=== PATIENT | female | born 1965 | race Caucasian/White ===

== ENCOUNTER 2017-09-30 19:41 | Inpatient (IN) | payer MEDICAID, OTHER ==
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
[2017-10-01] MEDS ORDERED: MIRTAZAPINE 15 MG TAB ONE (00:15)
[2017-10-01] MEDS ORDERED: ACETAMINOPHEN TAB 325 MG TAB PO PRN (04:54)
[2017-10-01] MEDS ORDERED: MAGNESIUM HYDROXIDE 2,400 MG/10 ML CUP PO PRN (04:54)
[2017-10-01] MEDS ORDERED: MAG HYDROX/AL HYDROX/SIMETH 30 ML CUP PO PRN (04:55)
[2017-10-01] MEDS: PANTOPRAZOLE 40 MG TABLET PO SCH ×2 (08:49→16:55)
[2017-10-01] MEDS: lamoTRIgine 100 MG TAB PO SCH (08:49)
[2017-10-01] MEDS: PRENATAL VIT-IRON-FOLIC ACID 1 EACH CAP PO SCH (08:49)
[2017-10-01] MEDS: LORazepam 1 MG TAB PO PRN ×2 (08:53→20:18)
[2017-10-01 08:56] LABS: Basophils # (A) 0.1 k/uL (0-0.2); Basophils % (A) 1 %; CH 29.7; CHCM 30.8; Eosinophils # (A) 0.2 k/uL (0-0.7); Eosinophils % (A) 3 %; HCT 42.7 % (34.0-46.0); HDW 2.27; HGB 13.2 gm/dL (11.4-16.0); Hypochromasia Slight; Luc % (Auto) 3; Lymphocytes # (A) 2.7 k/uL (1.0-4.8); Lymphocytes % (A) 37 %; Mean Platelet Volume 7.7; Monocytes # (A) 0.5 k/uL (0-1.0); Monocytes % (A) 6 %; Neutrophils # (A) 3.7 k/uL (1.3-7.7); Neutrophils % (A) 51 %; RBC 4.41 m/uL (3.80-5.40); RDW 14.2 % (11.5-15.5); WBC 7.4 k/uL (3.8-10.6); WBC (Perox) 7.14
[2017-10-01 09:29] LABS: ALT 32 U/L (9-52); AST 32 U/L (14-36); Alkaline Phosphatase 100 U/L (38-126); Anion Gap 9 mmol/L; Blood Urea Nitrogen 17 mg/dL (7-17); Calcium 9.6 mg/dL (8.4-10.2); Carbon Dioxide 26 mmol/L (22-30); Chloride 109 mmol/L (98-107); Cholesterol 157 mg/dL (<200); Glucose 93 mg/dL (74-99); HDL Cholesterol 74 mg/dL (40-60); Non-African American GFR(MDRD) >60 (>60 ml/min/1.73 sqM); Potassium 4.6 mmol/L (3.5-5.1); Sodium 144 mmol/L (137-145); Total Bilirubin 0.3 mg/dL (0.2-1.3); Total Protein 6.8 g/dL (6.3-8.2)
[2017-10-01] MEDS: ASPIRIN-ACET-CAFF 250-250-65MG 1 EACH TAB PO PRN ×2 (12:56→17:34)
[2017-10-01] MEDS: PREGABALIN 50 MG CAP PO SCH ×3 (12:56→21:58)
--- NOTE | 2017-10-01 17:30 | P.MDCNMH ---
History of Present Illness H&P Date: 10/01/17 Chief Complaint: medical management 52 year old female with history of depression . presented due to suicidal ideation and depression . she denies any active medical problems, but reports history of stomach ulcers and multiple surgeries on the bowels and stomach. denies any abd pain, nausea, vomiting, diarrhea , constipation at this time. she complains of chronic lower back pain non-radiating, 5/10 in severity , dull in nature. not limiting her activity, but asking for norco or morphine as these medications are the only ones that worked for her in the past. Review of Systems Pertinent positives as noted in HPI. All other systems were reviewed and are negative Past Medical History Past Medical History: No Reported History Additional Past Medical History / Comment(s): bowel obstruction History of Any Multi-Drug Resistant Organisms: None Reported Past Surgical History: Bowel Resection Additional Past Surgical History / Comment(s): ani en y gastric bypass bowel obstruction, GASTRIC SURGERY FOR ULCERS Past Anesthesia/Blood Transfusion Reactions: No Reported Reaction Past Psychological History: Anxiety, Depression Smoking Status: Current every day smoker Past Alcohol Use History: None Reported Past Drug Use History: None Reported - Past Family History family Additional Family Medical History / Comment(s): denies any history of cancer or CAD in the family Medications and Allergies Home Medications Medication Instructions Recorded Confirmed Type lamoTRIgine [LaMICtal] 200 mg PO DAILY 09/09/15 09/30/17 History Pantoprazole Sodium [Protonix] 20 mg PO BID #60 tab 04/30/16 09/30/17 Rx Mirtazapine [Remeron] 15 mg PO HS 08/04/16 09/30/17 History Bmrmgqe-Lelg-Ukzl [id number] 1 tab PO Q4HR PRN 09/30/17 09/30/17 History [Excedrin] Axy-Dqkl-Godfy Acid 1 cap PO DAILY 09/30/17 09/30/17 History [-U Capsule (formulary)] Allergies Allergy/AdvReac Type Severity Reaction Status Date / Time prochlorperazine Allergy Unknown Verified 09/30/17 19:54 [From Compazine] prochlorperazine edisylate Allergy Unknown Verified 09/30/17 19:54 [From Compazine] prochlorperazine maleate Allergy Unknown Verified 09/30/17 19:54 [From Compazine] Physical Exam Vitals: Vital Signs Temp Pulse Pulse Resp BP BP Pulse Ox 10/01/17 07:09 98.0 F 67 16 161/71 10/01/17 03:37 98.4 F 68 18 121/59 96 09/30/17 23:28 97.2 F L 90 16 135/90 96 09/30/17 19:47 98.6 F 96 20 178/84 97 Intake and Output 10/01/17 10/01/17 10/01/17 06:59 14:59 22:59 Other: Weight 54.2 kg Constitutional: No acute distress, conversant, pleasant Eyes: Anicteric sclerae, moist conjunctiva, no lid-lag Pupils equal round reactive to light ENMT: NC/AT Oropharynx clear, no erythema, exudates Neck: Supple, FROM, no masses, or JVD No carotid bruits No thyromegaly Lungs: Clear to auscultation Clear to percussion Normal respiratory effort, no accessory muscle use Cardiovascular: Heart regular in rate and rhythm, No murmurs, gallops, or rubs No peripheral edema Abdominal: Soft Nontender, no guarding, rebound or rigidity Abdomen moving with respiration Normoactive bowel sounds No hepatomegaly, No splenomegaly No palpable mass No abdominal wall hernia noted midline scar of previous surgeries Skin: Normal temperature, tone, texture, turgor No induration No subcutaneous nodules No rash, lesions No ulcers Extremities: No digital cyanosis No clubbing Pedal pulses intact and symmetrical Radial pulses intact and symmetrical No calf tenderness Psychiatric: Alert and oriented to person, place and time depressed affect poor judgment Neuro Muscles Strength 5/5 in all 4 extremities Sensation to light touch grossly present throughout No focal sensory deficits Lymphatics: no palpable cervical or supraclavicular , or inguinal lymph nodes Cranial Nerve Examination - Cranial Nerves Cranial Nerve II- Optic: Intact Cranial Nerve III- Oculomotor: Intact Cranial Nerve IV- Trochlear: Intact Cranial Nerve V- Trigeminal: Intact Cranial Nerve - Abducens: Intact Cranial Nerve VII- Facial: Intact Cranial Nerve VIII- Auditory: Intact Cranial Nerve IX- Glossopharyngeal: Intact Cranial Nerve X- Vagus: Intact Cranial Nerve XI- Accessory: Intact Cranial Nerve XII- Hypoglossal: Intact Results CBC & Chem 7: 10/01/17 08:18 10/01/17 08:18 Labs: Abnormal Lab Results - Last 24 Hours (Table) 09/30/17 10/01/17 Range/Units 21:25 08:18 Chloride 109 H (98-107) mmol/L HDL Cholesterol 74 H (40-60) mg/dL U Benzodiazepines Scrn Detected H (NotDetected) U Marijuana (THC) Screen Detected H (NotDetected) Assessment and Plan (1) Chronic low back pain Narrative/Plan: avoid NSAIDS due to history of stomach ulcers Current Visit: Yes Status: Acute Code(s): M54.5 - LOW BACK PAIN; G89.29 - OTHER CHRONIC PAIN SNOMED Code(s): 043674643 (2) DVT prophylaxis Narrative/Plan: low risk ambulatory patient Current Visit: Yes Status: Acute Code(s): QNI8196 - SNOMED Code(s): 316416015 (3) Depression Narrative/Plan: per psych Current Visit: Yes Status: Acute Code(s): F32.9 - MAJOR DEPRESSIVE DISORDER , SINGLE EPISODE, UNSPECIFIED SNOMED Code(s): 40465941 (4) Suicidal ideation Narrative/Plan: currently denies management per psych Current Visit: Yes Status: Acute Code(s): R45.851 - SUICIDAL IDEATIONS SNOMED Code(s): 1729056 Plan: continue with PPI tylenol or norco for pain control Thank you for allowing us to participate in the care of this patient. We will follow peripherally. Do not hesitate to contact us with questions. Someone can be reached from the [facility] hospitalist group at all hours of the day at [phone].
[2017-10-01] MEDS: MIRTAZAPINE 15 MG TAB PO SCH (20:18)
[2017-10-01 22:02] LABS: Appearance,Urine Clear (Clear); Bilirubin,Urine Negative (Negative); Glucose,Urine (UA) Negative (Negative); Ketones,Urine Negative (Negative); Leukocyte Esterase,Urine Negative (Negative); Nitrite,Urine Negative (Negative); PH, Urine 6.5 (5.0-8.0); Protein,Urine Trace (Negative); Specific Gravity,Urine 1.028 (1.001-1.035); UA Billing (MACRO vs. MICRO) CHEM
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
[2017-10-02] MEDS: PRENATAL VIT-IRON-FOLIC ACID 1 EACH CAP PO SCH (08:22)
[2017-10-02] MEDS: LORazepam 1 MG TAB PO PRN ×2 (08:22→20:42)
[2017-10-02] MEDS: lamoTRIgine 100 MG TAB PO SCH (08:22)
[2017-10-02] MEDS: PANTOPRAZOLE 40 MG TABLET PO SCH ×2 (08:23→16:21)
[2017-10-02] MEDS: PREGABALIN 50 MG CAP PO SCH ×3 (08:23→20:42)
[2017-10-02] MEDS: ASPIRIN-ACET-CAFF 250-250-65MG 1 EACH TAB PO PRN (11:54)
[2017-10-02] MEDS ORDERED: guaiFENesin-DM 100-10MG/5ML 10 ML CUP PO PRN (17:20)
--- NOTE | 2017-10-02 17:42 | P.PN ---
Subjective Progress Note Date: 10/02/17 Principal diagnosis: patient was seen and examined upon RN request to evaluate patient for chest pain 52 year old female with no reported medical history. However she remembered today that she used to take clonidine 0.1 mg QID , however she has not taken any since coming to the hospital (as she did not mention it to any one) she reported some chest pain earlier today which sounded like pleuritic in nature, associated with deep breaths, however it has resolved now, described as sharp 5/10 in severity over the left anterior chest , she is also reporting feeling congested and occasional cough, as she has not smoked since she has been here. Now, patient was walking through the hallways, no complain of any chest pain , trouble breathing, dizziness or sweating. denies any nausea or vomiting. Objective - Vital Signs Vital signs: Vital Signs Temp 97.6 F 10/02/17 07:19 Pulse 64 10/02/17 07:19 Resp 16 10/02/17 07:19 BP 118/66 10/02/17 07:19 Pulse Ox 96 10/01/17 03:37 - Exam general not in acute distress, conversant, pleasant Lungs clear to auscultation bilaterally, no wheezes CVS nl S1 S2, RRR no MGR abd soft lax , no tenderness to palpation , BS + Ext no leg edema b/l, no tenderness to palpation of the lower ext vital signs, shows elevated BP Psych alert oriented to place , person and time - Labs CBC & Chem 7: 10/01/17 08:18 10/01/17 08:18 Labs: Abnormal Lab Results - Last 24 Hours (Table) 10/01/17 10/01/17 Range/Units 08:18 21:45 Hemoglobin A1c 6.2 H (4.0-6.0) % Urine Protein Trace H (Negative) Assessment and Plan Assessment: 52 year old female, here for depression and suicidal ideation. she has recalled that she takes clonidine at home and I was asked to evaluate her elevated blood pressure (1) Hypertensive urgency Narrative/Plan: rebound hypertension , patient has not been taking her clonidine since presentation to the hospital restart clonidine 0.1 mg tid monitor vital signs closely Current Visit: Yes Status: Acute Code(s): I16.0 - HYPERTENSIVE URGENCY SNOMED Code(s): 268812629 (2) Atypical chest pain Narrative/Plan: patient describes chest pain , pleuritic in nature, resolved now check EKG, and trops X2 patient is a smoker and hypertensive Current Visit: Yes Status: Acute Code(s): R07.89 - OTHER CHEST PAIN SNOMED Code(s): 152981893 (3) Depression Narrative/Plan: per psych Current Visit: Yes Status: Acute Code(s): F32.9 - MAJOR DEPRESSIVE DISORDER , SINGLE EPISODE, UNSPECIFIED SNOMED Code(s): 27104436 (4) Suicidal ideation Narrative/Plan: currently denies management per psych Current Visit: Yes Status: Acute Code(s): R45.851 - SUICIDAL IDEATIONS SNOMED Code(s): 8655412
[2017-10-02] MEDS: cloNIDine HCL 0.1 MG TAB PO SCH ×2 (17:45→20:42)
[2017-10-02] MEDS: MIRTAZAPINE 15 MG TAB PO SCH (20:42)
--- NOTE | 2017-10-02 22:54 | P.PN ---
Subjective Progress Note Date: 10/02/17 Principal diagnosis: Major depressive disorder Interval History: Patient reports sleeping better last night. She is tolerating Lyrica without any adverse or side effects. Patient is attending most group, recreational, and activity therapies. She has integrated well into unit and socializes appropriately with staff and peers. She is attending all meals. She has not required any emergency medication. Patient has had contact with daughter Holly since admission and reports it was supportive. Mattie will pick patient up at hospital. At this time, patient denies SI/HI/AVH. Mental status exam: Appearance: alert, well groomed, appears stated age, steady gait Behavior: no psychomotor agitation or psychomotor retardation, no abnormal movements, fair eye contact Attitude: cooperative Speech: normal rate, rhythm, fluency, articulation, volume soft, and prosody; primary language: Niuean Mood: depressed Affect: congruent, reactive Thought processes: linear Thought content: patient does not appear to be responding to internal stimuli; patient denies auditory and visual hallucinations, no delusions appreciated Insight: overall fair Judgment: overall fair Cognitive: oriented to all 3 spheres, average intelligence Plan: Continue Remeron Continue Lamictal Continue Lyrica 50-mg PO TID SW will arrange a family meeting for tomorrow After family meeting, patient will most likely be ready to discharge home. Provisional discharge date is 10/03/2017 Objective - Vital Signs Vital signs: Vital Signs Temp 97.6 F 10/02/17 07:19 Pulse 64 10/02/17 20:46 Resp 16 10/02/17 17:48 BP 144/79 10/02/17 20:46 Pulse Ox 96 10/01/17 03:37 - Labs CBC & Chem 7: 10/01/17 08:18 10/01/17 08:18 Labs: Abnormal Lab Results - Last 24 Hours (Table) 10/01/17 Range/Units 08:18 Hemoglobin A1c 6.2 H (4.0-6.0) % Assessment and Plan (1) Major depressive disorder, recurrent, severe without psychotic features Current Visit: Yes Status: Acute Code(s): F33.2 - MAJOR DEPRESSV DISORDER, RECURRENT SEVERE W/O PSYCH FEATURES SNOMED Code(s): 66630548 (2) History of OCD (obsessive compulsive disorder) Current Visit: Yes Status: Acute Code(s): Z86.59 - PERSONAL HISTORY OF OTHER MENTAL AND BEHAVIORAL DISORDERS SNOMED Code(s): 810768071
[2017-10-03 06:55] VITALS: TEMP 97.7
[2017-10-03] MEDS ORDERED: metFORMIN 500 MG TAB PO SCH (07:30)
[2017-10-03] MEDS: PREGABALIN 50 MG CAP PO SCH (08:03)
[2017-10-03] MEDS: PRENATAL VIT-IRON-FOLIC ACID 1 EACH CAP PO SCH (08:03)
[2017-10-03] MEDS: lamoTRIgine 100 MG TAB PO SCH (08:03)
[2017-10-03] MEDS: cloNIDine HCL 0.1 MG TAB PO SCH (08:04)
[2017-10-03] MEDS: PANTOPRAZOLE 40 MG TABLET PO SCH (08:04)
[2017-10-03] MEDS: LORazepam 1 MG TAB PO PRN (08:05)
[2017-10-03] MEDS ORDERED: LISINOPRIL 5 MG TAB PO SCH (10:00)
[2017-10-03] MEDS ORDERED: LISINOPRIL 10 MG TAB PO SCH (10:00)
[2017-10-03 10:01] VITALS: BP 133/67; PULSE 95; RESP 18
== END 2017-10-03 11:27 | disposition home or self-care (01) | DRG 751 ==
LOC: EC 19:41 → 3MHU 23:28
PROVIDERS: ADMIT Psychiatry & Neurology Psychiatry; ATTEND Psychiatry & Neurology Psychiatry
DX: F33.2 Major depressive disorder, recurrent severe without psychotic features (principal); R45.851 Suicidal ideations; I10 Essential (primary) hypertension; F17.200 Nicotine dependence, unspecified, uncomplicated; F42.9 Obsessive-compulsive disorder, unspecified; I16.0 Hypertensive urgency; R07.89 Other chest pain; F41.9 Anxiety disorder, unspecified; Z98.84 Bariatric surgery status; Z79.899 Other long term (current) drug therapy; Z79.82 Long term (current) use of aspirin; Z91.5 Personal history of self-harm
CPT/HCPCS: 80053; 80061; 80306; 81003; 82075; 83036; 84443; 84484; 85025; 99285

== ENCOUNTER 2017-10-03 20:35 | Inpatient (IN) | payer OTHER ==
[2017-10-03] MEDS ORDERED: SODIUM CHLORIDE 0.9% 1,000 ML IV STA ×2 (20:40→23:01)
[2017-10-03] MEDS ORDERED: SODIUM CHLORIDE 0.9% 500 ML IV STA (20:40)
[2017-10-03] MEDS: ONDANSETRON 4 MG/2 ML VIAL IVP STA ×2 (21:00→22:22)
[2017-10-03] MEDS ORDERED: NALOXONE 0.4 MG/ML 10 ML VIAL IVP STA ×2 (21:14→21:46)
[2017-10-03] MEDS ORDERED: NALOXONE 0.4 MG/ML 1 ML VIAL IV STA (21:14)
--- NOTE | 2017-10-03 21:14 | ED ---
General Adult HPI - General Chief complaint: Abdominal Pain Stated complaint: Hypotension Time Seen by Provider: 10/03/17 20:37 Source: patient, RN notes reviewed, old records reviewed Mode of arrival: EMS Limitations: no limitations - History of Present Illness Initial comments: This is a 32-year-old female to the ER for evaluation. This patient presents to ER for evaluation regarding abdominal pain. Patient is brought in by EMS for bowel pain. Patient was just discharged from the hospital for psychiatric stay. Patient is found to be just complaining of pain, abdominal pain or weakness. Nausea no vomiting. Patient's been taking blood pressure pressure medication, she took clonidine 3 - Related Data Home Medications Medication Instructions Recorded Confirmed Ntbkeec-Nxvt-Zjce [id number] 1 tab PO Q4HR PRN 09/30/17 10/03/17 [Excedrin] Jkw-Asxl-Karkk Acid 1 cap PO DAILY 09/30/17 10/03/17 [-U Capsule (formulary)] Previous Rx's Medication Instructions Recorded Lisinopril [Zestril] 5 mg PO DAILY #14 tab 10/03/17 Mirtazapine [Remeron] 15 mg PO HS #14 tablet 10/03/17 Pantoprazole Sodium [Protonix] 40 mg PO AC-BID #28 tablet. 10/03/17 Pregabalin [Lyrica] 50 mg PO TID #42 cap 10/03/17 cloNIDine HCL [Catapres] 0.1 mg PO TID #42 tab 10/03/17 lamoTRIgine [LaMICtal] 200 mg PO DAILY #14 tablet 10/03/17 metFORMIN HCL [Glucophage] 500 mg PO BID-W/MEALS #28 tab 10/03/17 Allergies Allergy/AdvReac Type Severity Reaction Status Date / Time prochlorperazine Allergy Unknown Verified 10/03/17 20:49 [From Compazine] prochlorperazine edisylate Allergy Unknown Verified 10/03/17 20:49 [From Compazine] prochlorperazine maleate Allergy Unknown Verified 10/03/17 20:49 [From Compazine] Review of Systems ROS Statement: Those systems with pertinent positive or pertinent negative responses have been documented in the HPI. ROS Other: All systems not noted in ROS Statement are negative. 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 reports her mother is overall healthy and is 81 years old. family Additional Family Medical History / Comment(s): denies any history of cancer or CAD in the family General Exam Limitations: no limitations General appearance: alert, in no apparent distress Head exam: Present: atraumatic, normocephalic, normal inspection Eye exam: Present: normal appearance, PERRL, EOMI. Absent: scleral icterus, conjunctival injection, periorbital swelling ENT exam: Present: normal exam, mucous membranes moist Neck exam: Present: normal inspection. Absent: tenderness, meningismus, lymphadenopathy Respiratory exam: Present: normal lung sounds bilaterally. Absent: respiratory distress, wheezes, rales, rhonchi, stridor Cardiovascular Exam: Present: regular rate, normal rhythm, normal heart sounds. Absent: systolic murmur, diastolic murmur, rubs, gallop, clicks GI/Abdominal exam: Present: soft, normal bowel sounds. Absent: distended, tenderness, guarding, rebound, rigid Extremities exam: Present: normal inspection, full ROM, normal capillary refill. Absent: tenderness, pedal edema, joint swelling, calf tenderness Back exam: Present: normal inspection Neurological exam: Present: alert, oriented X3, CN II-XII intact Psychiatric exam: Present: normal affect, normal mood Skin exam: Present: warm, dry, intact, normal color. Absent: rash Course Vital Signs 10/03/17 10/03/17 10/03/17 20:45 21:00 21:17 Temperature 98.3 F Pulse Rate 61 42 L 45 L Respiratory 20 19 20 Rate Blood Pressure 73/40 78/48 69/39 O2 Sat by Pulse 97 97 99 Oximetry 10/03/17 10/03/17 10/03/17 21:45 21:59 22:14 Temperature Pulse Rate 40 L 39 L 39 L Respiratory 18 20 18 Rate Blood Pressure 73/39 74/41 87/48 O2 Sat by Pulse 98 97 99 Oximetry 10/03/17 10/03/17 10/03/17 22:31 22:47 23:15 Temperature Pulse Rate 54 L 45 L 40 L Respiratory 16 16 16 Rate Blood Pressure 83/45 75/42 74/55 O2 Sat by Pulse 98 96 99 Oximetry 10/03/17 10/04/17 23:50 01:23 Temperature Pulse Rate 30 L 41 L Respiratory 16 16 Rate Blood Pressure 114/71 135/64 O2 Sat by Pulse 99 97 Oximetry - Reevaluation(s) Reevaluation #1: 10/03/17 22:03 Patient's blood pressures are low, as his blood pressures remain low despite 2 L of fluid, repeat repeated doses of Narcan, patient has low blood pressure, low heart rate EKG Findings - EKG Comments: EKG Findings:: EKG shows sinus bradycardia rate 43, ME 174, QRS 90, QTc 442 Procedures - Central Line Placement Right IJ Consent Obtained: verbal consent Time Out Performed: Yes Patient Placed on Monitor/Pulse Ox: Yes MD Prep: mask, gown, gloves Central Line Prep: Povidone-Iodine 1% Local Anesthesia Used: Lidocaine 1% Ultrasound Used for Placement: Yes Central Line Lumen Inserted: triple Bloods Obtained for Lab: Yes Central Line Position: good blood return, all ports aspirated, flushed, capped Dressing Applied: Tegaderm Post Procedure X-Ray: tip of catheter in good position Patient Tolerated Procedure: well Complications: none Medical Decision Making - Medical Decision Making 52 female to ER for evaluation regarding abdominal pain. Patient just discharged from psychiatric unit earlier today. Patient was taking blood pressure medication at home elevation found to be severely hypotensive with low heart rate. Patient's EKG shows sinus bradycardia. After failure resuscitation with IV fluid patient had central line placed was placed on levophed, patient remains alert awake and oriented, CT and pelvis is negative labwork is otherwise normal patient will be admitted to ICU for continued hemodynamic monitoring and treatment - Lab Data Result diagrams: 10/03/17 21:05 10/03/17 21:05 Lab Results 10/03/17 10/03/17 10/03/17 Range/Units 21:05 21:05 21:05 WBC 8.9 (3.8-10.6) k/uL RBC 3.91 (3.80-5.40) m/uL Hgb 11.7 (11.4-16.0) gm/dL Hct 37.0 (34.0-46.0) % MCV 94.6 (80.0-100.0) fL MCH 29.9 (25.0-35.0) pg MCHC 31.6 (31.0-37.0) g/dL RDW 14.0 (11.5-15.5) % Plt Count 306 (150-450) k/uL Neutrophils % 60 % Lymphocytes % 29 % Monocytes % 5 % Eosinophils % 3 % Basophils % 1 % Neutrophils # 5.4 (1.3-7.7) k/uL Lymphocytes # 2.6 (1.0-4.8) k/uL Monocytes # 0.5 (0-1.0) k/uL Eosinophils # 0.3 (0-0.7) k/uL Basophils # 0.1 (0-0.2) k/uL PT (9.0-12.0) sec INR (<1.2) APTT (22.0-30.0) sec Sodium 136 L (137-145) mmol/L Potassium 4.7 (3.5-5.1) mmol/L Chloride 107 (98-107) mmol/L Carbon Dioxide 20 L (22-30) mmol/L Anion Gap 9 mmol/L BUN 26 H (7-17) mg/dL Creatinine 1.10 H (0.52-1.04) mg/dL Est GFR (MDRD) Af Amer >60 (>60 ml/min/1.73 sqM) Est GFR (MDRD) Non-Af 52 (>60 ml/min/1.73 sqM) Glucose 78 (74-99) mg/dL Plasma Lactic Acid Danial (0.7-2.0) mmol/L Calcium 9.2 (8.4-10.2) mg/dL Phosphorus 4.5 (2.5-4.5) mg/dL Magnesium 1.7 (1.6-2.3) mg/dL Total Bilirubin 0.2 (0.2-1.3) mg/dL AST 25 (14-36) U/L ALT 29 (9-52) U/L Alkaline Phosphatase 63 (38-126) U/L Total Creatine Kinase 89 (30-135) U/L CK-MB (CK-2) 0.7 (0.0-2.4) ng/mL CK-MB (CK-2) Rel Index 0.8 Troponin I <0.012 (0.000-0.034) ng/mL Total Protein 6.1 L (6.3-8.2) g/dL Albumin 3.7 (3.5-5.0) g/dL TSH 0.535 (0.465-4.680) mIU/L Urine Color Urine Appearance (Clear) Urine pH (5.0-8.0) Ur Specific Hunt (1.001-1.035) Urine Protein (Negative) Urine Glucose (UA) (Negative) Urine Ketones (Negative) Urine Blood (Negative) Urine Nitrite (Negative) Urine Bilirubin (Negative) Urine Urobilinogen (<2.0) mg/dL Ur Leukocyte Esterase (Negative) Salicylates mg/dL Urine Opiates Screen (NotDetected) Ur Oxycodone Screen (NotDetected) Urine Methadone Screen (NotDetected) Ur Propoxyphene Screen (NotDetected) Acetaminophen ug/mL Ur Barbiturates Screen (NotDetected) U Tricyclic Antidepress (NotDetected) Ur Phencyclidine Scrn (NotDetected) Ur Amphetamines Screen (NotDetected) U Methamphetamines Scrn (NotDetected) U Benzodiazepines Scrn (NotDetected) Urine Cocaine Screen (NotDetected) U Marijuana (THC) Screen (NotDetected) 10/03/17 10/03/17 10/03/17 Range/Units 21:05 21:05 22:44 WBC (3.8-10.6) k/uL RBC (3.80-5.40) m/uL Hgb (11.4-16.0) gm/dL Hct (34.0-46.0) % MCV (80.0-100.0) fL MCH (25.0-35.0) pg MCHC (31.0-37.0) g/dL RDW (11.5-15.5) % Plt Count (150-450) k/uL Neutrophils % % Lymphocytes % % Monocytes % % Eosinophils % % Basophils % % Neutrophils # (1.3-7.7) k/uL Lymphocytes # (1.0-4.8) k/uL Monocytes # (0-1.0) k/uL Eosinophils # (0-0.7) k/uL Basophils # (0-0.2) k/uL PT 10.8 (9.0-12.0) sec INR 1.1 (<1.2) APTT 23.0 (22.0-30.0) sec Sodium (137-145) mmol/L Potassium (3.5-5.1) mmol/L Chloride (98-107) mmol/L Carbon Dioxide (22-30) mmol/L Anion Gap mmol/L BUN (7-17) mg/dL Creatinine (0.52-1.04) mg/dL Est GFR (MDRD) Af Amer (>60 ml/min/1.73 sqM) Est GFR (MDRD) Non-Af (>60 ml/min/1.73 sqM) Glucose (74-99) mg/dL Plasma Lactic Acid Danial 0.7 (0.7-2.0) mmol/L Calcium (8.4-10.2) mg/dL Phosphorus (2.5-4.5) mg/dL Magnesium (1.6-2.3) mg/dL Total Bilirubin (0.2-1.3) mg/dL AST (14-36) U/L ALT (9-52) U/L Alkaline Phosphatase (38-126) U/L Total Creatine Kinase (30-135) U/L CK-MB (CK-2) (0.0-2.4) ng/mL CK-MB (CK-2) Rel Index Troponin I (0.000-0.034) ng/mL Total Protein (6.3-8.2) g/dL Albumin (3.5-5.0) g/dL TSH (0.465-4.680) mIU/L Urine Color Urine Appearance (Clear) Urine pH (5.0-8.0) Ur Specific Hunt (1.001-1.035) Urine Protein (Negative) Urine Glucose (UA) (Negative) Urine Ketones (Negative) Urine Blood (Negative) Urine Nitrite (Negative) Urine Bilirubin (Negative) Urine Urobilinogen (<2.0) mg/dL Ur Leukocyte Esterase (Negative) Salicylates 3.5 mg/dL Urine Opiates Screen (NotDetected) Ur Oxycodone Screen (NotDetected) Urine Methadone Screen (NotDetected) Ur Propoxyphene Screen (NotDetected) Acetaminophen <10.0 ug/mL Ur Barbiturates Screen (NotDetected) U Tricyclic Antidepress (NotDetected) Ur Phencyclidine Scrn (NotDetected) Ur Amphetamines Screen (NotDetected) U Methamphetamines Scrn (NotDetected) U Benzodiazepines Scrn (NotDetected) Urine Cocaine Screen (NotDetected) U Marijuana (THC) Screen (NotDetected) 10/03/17 Range/Units 23:15 WBC (3.8-10.6) k/uL RBC (3.80-5.40) m/uL Hgb (11.4-16.0) gm/dL Hct (34.0-46.0) % MCV (80.0-100.0) fL MCH (25.0-35.0) pg MCHC (31.0-37.0) g/dL RDW (11.5-15.5) % Plt Count (150-450) k/uL Neutrophils % % Lymphocytes % % Monocytes % % Eosinophils % % Basophils % % Neutrophils # (1.3-7.7) k/uL Lymphocytes # (1.0-4.8) k/uL Monocytes # (0-1.0) k/uL Eosinophils # (0-0.7) k/uL Basophils # (0-0.2) k/uL PT (9.0-12.0) sec INR (<1.2) APTT (22.0-30.0) sec Sodium (137-145) mmol/L Potassium (3.5-5.1) mmol/L Chloride (98-107) mmol/L Carbon Dioxide (22-30) mmol/L Anion Gap mmol/L BUN (7-17) mg/dL Creatinine (0.52-1.04) mg/dL Est GFR (MDRD) Af Amer (>60 ml/min/1.73 sqM) Est GFR (MDRD) Non-Af (>60 ml/min/1.73 sqM) Glucose (74-99) mg/dL Plasma Lactic Acid Danial (0.7-2.0) mmol/L Calcium (8.4-10.2) mg/dL Phosphorus (2.5-4.5) mg/dL Magnesium (1.6-2.3) mg/dL Total Bilirubin (0.2-1.3) mg/dL AST (14-36) U/L ALT (9-52) U/L Alkaline Phosphatase (38-126) U/L Total Creatine Kinase (30-135) U/L CK-MB (CK-2) (0.0-2.4) ng/mL CK-MB (CK-2) Rel Index Troponin I (0.000-0.034) ng/mL Total Protein (6.3-8.2) g/dL Albumin (3.5-5.0) g/dL TSH (0.465-4.680) mIU/L Urine Color Yellow Urine Appearance Clear (Clear) Urine pH 5.0 (5.0-8.0) Ur Specific Hunt 1.015 (1.001-1.035) Urine Protein Trace H (Negative) Urine Glucose (UA) Negative (Negative) Urine Ketones Negative (Negative) Urine Blood Negative (Negative) Urine Nitrite Negative (Negative) Urine Bilirubin Negative (Negative) Urine Urobilinogen <2.0 (<2.0) mg/dL Ur Leukocyte Esterase Negative (Negative) Salicylates mg/dL Urine Opiates Screen Not Detected (NotDetected) Ur Oxycodone Screen Not Detected (NotDetected) Urine Methadone Screen Not Detected (NotDetected) Ur Propoxyphene Screen Not Detected (NotDetected) Acetaminophen ug/mL Ur Barbiturates Screen Not Detected (NotDetected) U Tricyclic Antidepress Not Detected (NotDetected) Ur Phencyclidine Scrn Not Detected (NotDetected) Ur Amphetamines Screen Not Detected (NotDetected) U Methamphetamines Scrn Not Detected (NotDetected) U Benzodiazepines Scrn Detected H (NotDetected) Urine Cocaine Screen Not Detected (NotDetected) U Marijuana (THC) Screen Detected H (NotDetected) - Radiology Data Radiology results: report reviewed (CT abdomen and pelvis is negative for acute disease), image reviewed Critical Care Time Critical Care Time: Yes Total Critical Care Time: 95 Disposition Clinical Impression: Depression, Major depressive disorder, recurrent, severe without psychotic features, Shock, Overdose, Bradycardia, Hypotension Disposition: ADMITTED IP TO THIS HOSP Condition: Critical Referrals: Александр Uribe DO [Primary Care Provider] - 1-2 days
[2017-10-03 21:15] LABS: Basophils # (A) 0.1 k/uL (0-0.2); Basophils % (A) 1 %; CH 29.6; CHCM 31.4; Eosinophils # (A) 0.3 k/uL (0-0.7); Eosinophils % (A) 3 %; HDW 2.26; HGB 11.7 gm/dL (11.4-16.0); Luc # (Auto) 0.12; Luc % (Auto) 1; Lymphocytes # (A) 2.6 k/uL (1.0-4.8); Lymphocytes % (A) 29 %; MCH 29.9 pg (25.0-35.0); MCHC 31.6 g/dL (31.0-37.0); MCV 94.6 fL (80.0-100.0); Mean Platelet Volume 7.7; Monocytes # (A) 0.5 k/uL (0-1.0); Monocytes % (A) 5 %; Neutrophils # (A) 5.4 k/uL (1.3-7.7); Neutrophils % (A) 60 %; RBC 3.91 m/uL (3.80-5.40); WBC 8.9 k/uL (3.8-10.6); WBC (Perox) 8.94
[2017-10-03 21:26] LABS: ALT 29 U/L (9-52); AST 25 U/L (14-36); Alkaline Phosphatase 63 U/L (38-126); Anion Gap 9 mmol/L; Blood Urea Nitrogen 26 mg/dL (7-17); Calcium 9.2 mg/dL (8.4-10.2); Carbon Dioxide 20 mmol/L (22-30); Chloride 107 mmol/L (98-107); Glucose 78 mg/dL (74-99); INR 1.1 (<1.2); Magnesium 1.7 mg/dL (1.6-2.3); Non-African American GFR(MDRD) 52 (>60 ml/min/1.73 sqM); Phosphorous 4.5 mg/dL (2.5-4.5); Potassium 4.7 mmol/L (3.5-5.1); Prothrombin Time 10.8 sec (9.0-12.0); Sodium 136 mmol/L (137-145); Total Bilirubin 0.2 mg/dL (0.2-1.3); Total Protein 6.1 g/dL (6.3-8.2)
[2017-10-03] MEDS ORDERED: HYDROCORTISONE SUCCINATE 100 MG/2 ML VIAL IV STA (21:28)
[2017-10-03 21:42] LABS: Creatine Kinase 89 U/L (30-135)
[2017-10-03 21:43] LABS: Acetaminophen <10.0 ug/mL; Salicylate 3.5 mg/dL
[2017-10-03 21:54] LABS: Creatine Kinase MB 0.7 ng/mL (0.0-2.4); Troponin I <0.012 ng/mL (0.000-0.034)
[2017-10-03] MEDS ORDERED: SODIUM CHLORIDE 0.9% 1,000 ML IV ONE (21:57)
[2017-10-03] MEDS ORDERED: RX INFO: IV CONTRAST WAS GIVEN 1 EACH MISC MISCELLANE PRN (22:46)
[2017-10-03] MEDS ORDERED: NOREPINEPHRIN 16 MG-0.9%NS PMX 16 MG/250 ML ML IV STA (22:46)
--- NOTE | 2017-10-03 23:10 | XR ---
EXAMINATION TYPE: XR chest 1V portable DATE OF EXAM: 10/03/2017 COMPARISON: 12-21-15 HISTORY: Chest pain TECHNIQUE: Single frontal view of the chest is obtained. FINDINGS: Heart and mediastinum are normal. Lungs are clear. Diaphragm is normal. There is right jug ular catheter with tip in the right atrium. There are chest leads. There is no sign of pleural effusi on. IMPRESSION: No active cardiopulmonary disease. No change compared to old exam. No pneumothorax.
[2017-10-03 23:33] LABS: Appearance,Urine Clear (Clear); Bilirubin,Urine Negative (Negative); Glucose,Urine (UA) Negative (Negative); Ketones,Urine Negative (Negative); Leukocyte Esterase,Urine Negative (Negative); Nitrite,Urine Negative (Negative); Protein,Urine Trace (Negative); Specific Gravity,Urine 1.015 (1.001-1.035); UA Billing (MACRO vs. MICRO) CHEM; Urobilinogen,Urine <2.0 mg/dL (<2.0)
--- NOTE | 2017-10-04 00:40 | CT ---
EXAMINATION TYPE: CT abdomen pelvis w con DATE OF EXAM: 10/04/2017 COMPARISON: 10/21/2015 HISTORY: vomited and abdominal pain CT DLP: 458 mGycm Automated exposure control for dose reduction was used. TECHNIQUE: Helical acquisition of images was performed from the lung bases through the pelvis. CONTRAST: Performed without Oral Contrast and with IV Contrast, patient injected with 80 mL of Visipaque 320. FINDINGS: Lung bases are clear of consolidation. There is no pleural effusion. Liver spleen appear normal. There is no sign of pancreatic mass. Gallbladder appears normal. Bile jeremiah ts are not dilated. There is no adrenal mass. Kidneys show satisfactory contrast opacification. There is no hydronephrosi s. There is no retroperitoneal adenopathy. There is no ascites. There is some air in the urinary blad muna. Uterus is anteverted. There is no sign of a pelvic mass. I see no bony destructive process. I se e no intestinal wall thickening. There are no dilated loops. Appendix is not seen. There is no sign o f appendicitis. IMPRESSION: NO SIGN OF ACUTE ABDOMEN AND PELVIS. THERE IS CLEARING OF THE POSTSURGICAL CHANGES ON THE ANTERIOR AB DOMINAL WALL COMPARED TO OLD EXAM. THERE IS CLEARING OF THE FLUID IN THE ABDOMEN. SMALL AMOUNT OF AIR IN THE URINARY BLADDER IS PROBABLY DUE TO CATHETERIZATION.
[2017-10-04] MEDS ORDERED: NALOXONE 0.4 MG/ML 1 ML VIAL IV PRN (02:03)
[2017-10-04] MEDS ORDERED: IPRATROPIUM-ALBUTEROL 3 ML NEB INHALATION PRN (02:03)
[2017-10-04] MEDS ORDERED: NOREPINEPHRIN 4 MG-0.9% NS PMX 4 MG/250 ML ML IV SCH (02:30)
[2017-10-04] MEDS ORDERED: SODIUM CHLORIDE 0.9% 1,000 ML IV SCH ×3 (02:30→17:00)
[2017-10-04] MEDS ORDERED: ACETAMINOPHEN TAB 325 MG TAB PO PRN (02:30)
--- NOTE | 2017-10-04 02:50 | P.HPIM ---
History of Present Illness H&P Date: 10/04/17 Chief Complaint: Dizziness 32-year-old female was just discharged from the psychiatry unit at [facility] came back to the ER for severe dizziness, abdominal pain and vomiting. Patient was about to fall but she held herself because of the severe dizziness. She felt very nauseous and threw up multiple times including one time and in the emergency department. She also had severe abdominal pain which later resolved with the vomiting. She denied having any shortness of breath or chest pain. No fevers or chills, no cough, no diarrhea, no urinary symptoms. 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 Yesterday she took 3 pills of 0.1 mg of clonidine in addition to the one she was given in the hospital right before discharge. When she arrived to the emergency department she was noted to be severely bradycardic with a heart rate down in the 30s, her blood pressure was in the 70s systolic. She had a central line placed and was started on norepinephrine drip and was admitted to the ICU subsequently for further evaluation and management. Review of Systems 12 point review of system was performed, negative except for HPI Past Medical History Past Medical History: GERD/Reflux, Hypertension Additional Past Medical History / Comment(s): Depression, history of suicidal ideations. History of gastric ulcer. 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 reports her mother is overall healthy and is 81 years old. family Additional Family Medical History / Comment(s): denies any history of cancer or CAD in the family Medications and Allergies Home Medications Medication Instructions Recorded Confirmed Type Gutdgwl-Tkmw-Nqsn [id number] 1 tab PO Q4HR PRN 09/30/17 10/03/17 History [Excedrin] Osx-Ujjp-Usbix Acid 1 cap PO DAILY 09/30/17 10/03/17 History [-U Capsule (formulary)] Lisinopril [Zestril] 5 mg PO DAILY #14 tab 10/03/17 10/03/17 Rx Mirtazapine [Remeron] 15 mg PO HS #14 tablet 10/03/17 10/03/17 Rx Pantoprazole Sodium [Protonix] 40 mg PO AC-BID #28 tablet. 10/03/17 10/03/17 Rx Pregabalin [Lyrica] 50 mg PO TID #42 cap 10/03/17 10/03/17 Rx cloNIDine HCL [Catapres] 0.1 mg PO TID #42 tab 10/03/17 10/03/17 Rx lamoTRIgine [LaMICtal] 200 mg PO DAILY #14 tablet 10/03/17 10/03/17 Rx metFORMIN HCL [Glucophage] 500 mg PO BID-W/MEALS #28 tab 10/03/17 10/03/17 Rx Allergies Allergy/AdvReac Type Severity Reaction Status Date / Time prochlorperazine Allergy Unknown Verified 10/03/17 20:49 [From Compazine] prochlorperazine edisylate Allergy Unknown Verified 10/03/17 20:49 [From Compazine] prochlorperazine maleate Allergy Unknown Verified 10/03/17 20:49 [From Compazine] Physical Exam Vitals: Vital Signs Temp Pulse Resp BP Pulse Ox 10/04/17 01:23 41 L 16 135/64 97 10/03/17 23:50 30 L 16 114/71 99 10/03/17 23:15 40 L 16 74/55 99 10/03/17 22:47 45 L 16 75/42 96 10/03/17 22:31 54 L 16 83/45 98 10/03/17 22:14 39 L 18 87/48 99 10/03/17 21:59 39 L 20 74/41 97 10/03/17 21:45 40 L 18 73/39 98 10/03/17 21:17 45 L 20 69/39 99 10/03/17 21:00 42 L 19 78/48 97 10/03/17 20:45 98.3 F 61 20 73/40 97 Intake and Output 10/03/17 10/03/17 10/04/17 14:59 22:59 06:59 Intake Total 20.937 Output Total 50 Balance -29.063 Intake: Intake, IV Titration 20.937 Amount Norepinephrin 16 mg-0.9% 20.937 Ns Pmx 16 mg In 250 ml @ Titrate IV .Q0M STA Rx#: [id number] Output: Urine 50 Uretheral (Sprague) 50 Other: Weight 54.431 kg Patient Weight 10/04/17 06:59 Weight 54.431 kg Constitutional: No acute distress, conversant, pleasant Eyes:Anicteric sclerae, moist conjunctiva, no lid-lag, PERRLA, ENMT: Oropharynx clear, no erythema, exudates Neck: Supple, FROM, no masses, or JVD, No carotid bruits, No thyromegaly Lungs: Clear to auscultation, Clear to percussion, Normal respiratory effort, no accessory muscle use Cardiovascular: Bradycardic, regular, No murmurs, gallops, or rubs, No peripheral edema Abdominal: Soft, Nontender, no guarding, rebound or rigidity, Normoactive bowel sounds, No hepatomegaly, No splenomegaly, No palpable mass Skin: Normal temperature, tone, texture, turgor, no induration, No subcutaneous nodules, No rash, lesions, No ulcers Extremities: No digital cyanosis, No clubbing, Pedal pulses intact and symmetrical, Radial pulses intact and symmetrical, No calf tenderness Psychiatric: Alert and oriented to person, place and time, appropriate affect, intact judgement Neuro: Muscles Strength 5/5 in all 4 extremities, Sensation to light touch grossly present throughout, Cranial nerves II-XII grossly intact, no focal sensory deficits Results CBC & Chem 7: 10/03/17 21:05 10/03/17 21:05 Labs: Abnormal Lab Results - Last 24 Hours (Table) 10/03/17 10/03/17 Range/Units 21:05 23:15 Sodium 136 L (137-145) mmol/L Carbon Dioxide 20 L (22-30) mmol/L BUN 26 H (7-17) mg/dL Creatinine 1.10 H (0.52-1.04) mg/dL Total Protein 6.1 L (6.3-8.2) g/dL Urine Protein Trace H (Negative) U Benzodiazepines Scrn Detected H (NotDetected) U Marijuana (THC) Screen Detected H (NotDetected) Assessment and Plan Plan: #1 Severe hypotension, severe sinus bradycardia, nausea and vomiting and abdominal pain: It is unclear whether he took more than 3 pills of the clonidine as her symptoms are consistent with that Labs and computed tomography scan of the abdomen and pelvis were reviewed Norepinephrine drip IV fluids normal saline at 150 mL per hour. 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
[2017-10-04 04:03] LABS: Glucose,Whole Blood 135 mg/dL (75-99)
[2017-10-04 04:30] LABS: Basophils # (A) 0.1 k/uL (0-0.2); Basophils % (A) 1 %; CHCM 31.8; Eosinophils # (A) 0.1 k/uL (0-0.7); Eosinophils % (A) 1 %; HCT 37.2 % (34.0-46.0); HDW 2.48; HGB 11.8 gm/dL (11.4-16.0); Luc # (Auto) 0.09; Luc % (Auto) 1; Lymphocytes # (A) 1.4 k/uL (1.0-4.8); Lymphocytes % (A) 14 %; MCHC 31.7 g/dL (31.0-37.0); MCV 94.7 fL (80.0-100.0); Mean Platelet Volume 7.3; Monocytes # (A) 0.2 k/uL (0-1.0); Monocytes % (A) 2 %; Neutrophils % (A) 82 %; RBC 3.93 m/uL (3.80-5.40); RDW 12.7 % (11.5-15.5); WBC 9.8 k/uL (3.8-10.6); WBC (Perox) 9.84
[2017-10-04 04:40] LABS: ALT 90 U/L (9-52); AST 144 U/L (14-36); Alkaline Phosphatase 138 U/L (38-126); Anion Gap 8 mmol/L; Blood Urea Nitrogen 24 mg/dL (7-17); Calcium 8.2 mg/dL (8.4-10.2); Carbon Dioxide 18 mmol/L (22-30); Chloride 109 mmol/L (98-107); Glucose 135 mg/dL (74-99); Magnesium 1.6 mg/dL (1.6-2.3); Non-African American GFR(MDRD) >60 (>60 ml/min/1.73 sqM); Phosphorous 4.9 mg/dL (2.5-4.5); Potassium 4.9 mmol/L (3.5-5.1); Sodium 135 mmol/L (137-145); Total Bilirubin 0.2 mg/dL (0.2-1.3); Total Protein 5.4 g/dL (6.3-8.2)
[2017-10-04 05:15] VITALS: BMI 22.3
--- NOTE | 2017-10-04 07:06 | XR ---
EXAMINATION TYPE: XR chest 1V DATE OF EXAM: 10/04/2017 HISTORY: shortness of breath. REFERENCE: Previous study dated 10/03/2017. FINDINGS: The patient's right internal jugular catheter remains in place, unchanged in appearance. The lungs are clear. Pleural space are clear. The heart is not enlarged. IMPRESSION: NO ACTIVE INTRATHORACIC DISEASE.
[2017-10-04] MEDS: MAGNESIUM SULFATE-D5W PMX 1 GM in DEXTROSE/WATER 1 100ML.BAG IVPB SCH ×2 (08:26→09:38)
[2017-10-04] MEDS ORDERED: PANTOPRAZOLE 40 MG/10 ML VIAL IV SCH (09:00)
[2017-10-04] MEDS: ENOXAPARIN 40 MG/0.4 ML SYRINGE SQ SCH (09:45)
--- NOTE | 2017-10-04 11:03 | CONS ---
CONSULTATION Mrs. Sandi Salas is a 52-year-old lady who presented to the emergency room yesterday evening, brought in by the EMS with complaints of generalized weakness, lack of energy. She was discharged from the mental health unit and was advised to take clonidine dose unclear 3 times a day and also lisinopril 5 mg daily. She comes in with complaints of feeling dizzy, lightheaded, weak after taking 3 clonidine tablets that she took during the day. When she arrived in the emergency room, she was bradycardic and hypotensive, admitted to the intensive care unit, given IV fluids and placed on a Levophed drip. The patient also received Narcan in the emergency room. At the time of my evaluation, she is on about 2 mcg of Levophed being weaned. Her blood pressure is 112 systolic, heart rate is 62, sinus with a normal AK interval. Initial EKG revealed sinus bradycardia at a rate of about 36 beats per minute. She is asymptomatic at this time. Her weakness and fatigue and dizziness has resolved completely. PAST MEDICAL HISTORY: 1. Depression. 2. Type 2 diabetes mellitus, recently on metformin. 3. Borderline hypertension for which she was given clonidine by her psychiatrist and also recently started on 5 mg of lisinopril yesterday evening. 4. She is status post bowel resection. Details are unclear. She has history of gastric ulcers in the past and also had some bowel resection. Details are not available. ALLERGIES: She is ALLERGIC TO COMPAZINE. MEDICATIONS: 1. Lisinopril 5 mg daily. 2. Clonidine dose is unclear, probably 0.1 mg t.i.d. 3. Lamotrigine at 1 mg daily. 4. Metformin 500 mg b.i.d. 5. Lyrica 50 mg daily. 6. Protonix 40 mg daily. EXAMINATION: On examination, blood pressure is 112/70, pulse rate is 62, sinus. HEENT: Unremarkable. Fundus was not examined by me. Neck is supple. No JVD. I do not hear a carotid bruit. There is no thyromegaly. Heart exam reveals S1, S2 heard normally. No rub, murmur or gallop. Lungs reveal diminished air entry. Abdomen is soft, nontender. Lower extremities reveal palpable pulses. No edema. Central nervous system is normal. EKG on arrival revealed a sinus bradycardia with a some blocked PACs, some artifact, nonspecific ST abnormality. Laboratory data revealed her magnesium level was low and has been supplemented. Her thyroid functions are normal. Initial troponin is normal. IMPRESSION: 1. Hypotension and bradycardia secondary to clonidine. 2. Underlying depression. 3. Type 2 diabetes mellitus. 4. Borderline hypertension. RECOMMENDATIONS: I am recommending that we obtain echocardiogram to assess LV function. I will hydrate the patient with 150 mL of normal saline for 5 hours and then decrease it to 75 mL/hour. We will wean off the Levophed. She should not be on any antihypertensive agents at this time unless evaluated by her PCP in the next week or so and then we can gradually introduce 1 agent at lower dose if necessary. I discussed my thoughts in detail with the patient. We will perform echocardiogram today and will move her to telemetry if she remains stable. Thank you very much for the consult. JIMMY / ROSITA: [id number] /
[2017-10-04] MEDS: ONDANSETRON 4 MG/2 ML VIAL IVP PRN ×2 (11:23→19:46)
--- NOTE | 2017-10-04 11:27 | P.CNPUL ---
History of Present Illness Consult date: 10/04/17 Reason for consult: other Chief complaint: Hypotension History of present illness: Consult dated 10/04/2017 32-year-old female who recently was discharged from psychiatry. She was on the psychiatric floor. She apparently is on clonidine for anxiety and also was given lisinopril for blood pressure control. She apparently became hypotensive and presented to the emergency department with hypotension and bradycardia. She was complaining of abdominal pain and weakness as well. No nausea or vomiting. The patient is doing much better now. Treated with a central line fluids and Levothroid in the emergency department. The ER doctor did call me. The patient does have a history of depression. She is typically on Lamictal and Remeron. The patient does smoke and does drink socially. She sees a PA up in the [facility]. She resides in [facility]. Anyway, the patient is doing much better. The levo fed can be turned off. She can be transferred out of the unit today. She has a history of hypertension anxiety depression diabetes and bowel obstruction. She is also status post Pa-en-Y gastric bypass surgery. Review of Systems A 12 point review of system is positive for hypotension and weakness. The rest of the 12 point review of system is unremarkable. Past Medical History Past Medical History: GERD/Reflux, Hypertension Additional Past Medical History / Comment(s): Depression, history of suicidal ideations. History of gastric ulcer. Bowel obstruction Fall 2015 History of Any Multi-Drug Resistant Organisms: None Reported Past Surgical History: Bowel Resection Additional Past Surgical History / Comment(s): pa en y gastric bypass bowel obstruction, GASTRIC SURGERY FOR ULCERS Past Anesthesia/Blood Transfusion Reactions: No Reported Reaction Past Psychological History: Anxiety, Depression Smoking Status: Current some day smoker Past Alcohol Use History: Rare Additional Past Alcohol Use History / Comment(s): Pt. reports that she rarely drinks alcohol. Past Drug Use History: Marijuana Additional Drug Use History / Comment(s): Pt. reports she has her medical marijuana card. - Past Family History Mother Family Medical History: GERD/Reflux, Hypertension Additional Family Medical History / Comment(s): Pt. reports her mother is overall healthy and is 81 years old. family Additional Family Medical History / Comment(s): denies any history of cancer or CAD in the family Medications and Allergies Home Medications Medication Instructions Recorded Confirmed Type Reqebht-Btbl-Scaw [id number] 1 tab PO Q4HR PRN 09/30/17 10/03/17 History [Excedrin] Vdt-Mbtu-Zbjtn Acid 1 cap PO DAILY 09/30/17 10/03/17 History [-U Capsule (formulary)] Lisinopril [Zestril] 5 mg PO DAILY #14 tab 10/03/17 10/03/17 Rx Mirtazapine [Remeron] 15 mg PO HS #14 tablet 10/03/17 10/03/17 Rx Pantoprazole Sodium [Protonix] 40 mg PO AC-BID #28 tablet. 10/03/17 10/03/17 Rx Pregabalin [Lyrica] 50 mg PO TID #42 cap 10/03/17 10/03/17 Rx cloNIDine HCL [Catapres] 0.1 mg PO TID #42 tab 10/03/17 10/03/17 Rx lamoTRIgine [LaMICtal] 200 mg PO DAILY #14 tablet 10/03/17 10/03/17 Rx metFORMIN HCL [Glucophage] 500 mg PO BID-W/MEALS #28 tab 10/03/17 10/03/17 Rx Allergies Allergy/AdvReac Type Severity Reaction Status Date / Time prochlorperazine Allergy Unknown Verified 10/03/17 20:49 [From Compazine] prochlorperazine edisylate Allergy Unknown Verified 10/03/17 20:49 [From Compazine] prochlorperazine maleate Allergy Unknown Verified 10/03/17 20:49 [From Compazine] Physical Exam Osteopathic Statement: *. No significant issues noted on an osteopathic structural exam other than those noted in the History and Physical/Consult. Vitals: Vital Signs Temp Pulse Pulse Resp BP BP Pulse Ox 10/04/17 10:00 63 11 L 107/54 98 10/04/17 09:30 65 21 87/43 97 10/04/17 09:00 56 L 22 108/62 99 10/04/17 08:30 53 L 35 H 137/71 98 10/04/17 08:00 97.7 F 43 L 18 110/53 97 10/04/17 07:30 43 L 29 H 95/49 97 10/04/17 07:00 49 L 15 118/55 97 10/04/17 06:00 41 L 20 110/52 98 10/04/17 05:00 54 L 14 84/42 97 10/04/17 04:30 51 L 29 H 132/66 96 10/04/17 04:06 97 10/04/17 04:00 98 F 49 L 48 L 14 133/62 97 10/04/17 03:58 59 L 22 10/04/17 03:24 45 L 16 127/60 98 10/04/17 03:19 98 F 48 L 18 132/66 98 10/04/17 01:23 41 L 16 135/64 97 10/03/17 23:50 30 L 16 114/71 99 10/03/17 23:15 40 L 16 74/55 99 10/03/17 22:47 45 L 16 75/42 96 10/03/17 22:31 54 L 16 83/45 98 10/03/17 22:14 39 L 18 87/48 99 10/03/17 21:59 39 L 20 74/41 97 10/03/17 21:45 40 L 18 73/39 98 10/03/17 21:17 45 L 20 69/39 99 10/03/17 21:00 42 L 19 78/48 97 10/03/17 20:45 98.3 F 61 20 73/40 97 Intake and Output 10/03/17 10/04/17 10/04/17 22:59 06:59 14:59 Intake Total 420.937 340.550 Output Total 715 325 Balance -294.063 15.550 Intake: IV 400 100 Sodium Chloride 0.9% 1, 400 100 000 ml @ 100 mls/hr IV . Q10H BRAD Rx#:[id number] Intake, IV Titration 20.937 240.550 Amount Magnesium Sulfate-D5w Pmx 200 1 gm In Dextrose/Water 1 100ml.bag @ 100 mls/hr IVPB Q1H BRAD Rx#: [id number] Norepinephrin 16 mg-0.9% 20.937 40.550 Ns Pmx 16 mg In 250 ml @ Titrate IV .Q0M STA Rx#: [id number] Output: Urine 715 325 Uretheral (Sprague) 50 Other: Voiding Method Indwelling Catheter Weight 54.431 kg 59 kg No acute distress, oriented 3. HEENT examination is grossly unremarkable. Mucous membranes are moist. No oral lesions. Neck supple. Full range of motion. No adenopathy or thyromegaly. Cardiovascular examination reveals regular rhythm rate. S1-S2 normal. No S3- S4 or murmur. Lungs are clear breath sounds equal. No wheezes or rhonchi. Abdomen soft bowel sounds are heard. Extremities are intact. No cyanosis clubbing or edema. Skin without rash. Neurologic examination is nonfocal. Results - Laboratory Findings CBC and BMP: 10/04/17 04:15 10/04/17 04:15 PT/INR, D-dimer PT 10.8 sec (9.0-12.0) 10/03/17 21:05 INR 1.1 (<1.2) 10/03/17 21:05 Abnormal lab findings: Abnormal Labs 10/03/17 10/03/17 10/04/17 21:05 23:15 04:00 Neutrophils # Sodium 136 L Chloride Carbon Dioxide 20 L BUN 26 H Creatinine 1.10 H Glucose POC Glucose (mg/dL) 135 H Calcium Phosphorus AST ALT Alkaline Phosphatase Total Protein 6.1 L Albumin Urine Protein Trace H U Benzodiazepines Scrn Detected H U Marijuana (THC) Screen Detected H 10/04/17 10/04/17 04:15 04:15 Neutrophils # 8.0 H Sodium 135 L Chloride 109 H Carbon Dioxide 18 L BUN 24 H Creatinine Glucose 135 H POC Glucose (mg/dL) Calcium 8.2 L Phosphorus 4.9 H AST 144 H ALT 90 H Alkaline Phosphatase 138 H Total Protein 5.4 L Albumin 3.2 L Urine Protein U Benzodiazepines Scrn U Marijuana (THC) Screen - Diagnostic Findings Chest x-ray: image reviewed Additional studies: X-rays labs and medications are all reviewed. Assessment and Plan (1) Bradycardia Current Visit: Yes Status: Acute Code(s): R00.1 - BRADYCARDIA, UNSPECIFIED SNOMED Code(s): 92603369 (2) Depression Current Visit: Yes Status: Acute Code(s): F32.9 - MAJOR DEPRESSIVE DISORDER , SINGLE EPISODE, UNSPECIFIED SNOMED Code(s): 68587866 (3) Hypotension Current Visit: Yes Status: Acute Code(s): I95.9 - HYPOTENSION, UNSPECIFIED SNOMED Code(s): 52466326 (4) Major depressive disorder, recurrent, severe without psychotic features Current Visit: Yes Status: Acute Code(s): F33.2 - MAJOR DEPRESSV DISORDER, RECURRENT SEVERE W/O PSYCH FEATURES SNOMED Code(s): 84652879 (5) Chronic abdominal pain Current Visit: No Status: Acute Code(s): R10.9 - UNSPECIFIED ABDOMINAL PAIN SNOMED Code(s): 813841611 (6) History of OCD (obsessive compulsive disorder) Current Visit: No Status: Acute Code(s): Z86.59 - PERSONAL HISTORY OF OTHER MENTAL AND BEHAVIORAL DISORDERS SNOMED Code(s): 968705388 Plan: Plan dated 10/04/2017 The patient's doing well. I had a Anh the nurse to turn off the norepinephrine She can be transferred out to the floor. No additional recommendations are made. Prognosis is good. Time with Patient: Greater than 30
[2017-10-04] MEDS: lamoTRIgine 100 MG TAB PO SCH (11:39)
[2017-10-04] MEDS: PREGABALIN 50 MG CAP PO SCH ×3 (11:42→21:59)
[2017-10-04] MEDS ORDERED: ASPIRIN-ACET-CAFF 250-250-65MG 1 EACH TAB PO STA (15:37)
--- NOTE | 2017-10-04 18:35 | P.CN ---
Psychiatric Consult - . Consult date: 10/04/17 Consult:: 10/04/17 18:29 IDENTIFYING DATA: 52-year-old female patient HPI: Admitted to the medical floor [facility] with recent dizziness and abdominal pain and vomiting. Patient was admitted with hypotension and bradycardia. Per history she went to the ER with dizziness and abdominal pain and vomiting. Patient recent admission to the mental health unit and states that when she was admitted there she is not suicidal she was depressed and it did help her. She states that she was on clonidine but her blood pressure had been increased there and she was started on another blood pressure medication lisinopril. She states that when she went home and was taking the blood pressure medications her blood pressure was dropping and she felt dizzy and she kind of blacked out. She says that her mom called the ambulance and her pulse and blood pressure found to be low. Says she feels a lot better now she denies that she took any overdose. PAST PSYCHIATRIC HISTORY: Patient had a recent admission to the mental health unit [facility] for depression. Per chart history she has had multiple hospitalizations starting at approximately the age of 30. Diagnosis is been major depressive disorder recurrent and history of OCD. She currently sees outpatient treatment with Consuelo and Benito at [facility]. She has been on Lamictal and Remeron which worked well for her. PMH: Gastroesophageal reflux sees, hypertension, gastric ulcer, bowel obstruction, bowel resection ALLERGIES: Prochlorperazine MEDICATIONS: Tylenol when necessary, Lovenox, Lamictal, Remeron, Narcan when necessary, Levothroid, Zofran when necessary, Lyrica CHEMICAL DEPENDENCY HISTORY: Per chart history went to [place] 2 years ago. Per chart history prior to admission to the mental health unit had had 3- 4 drinks and there was a concern of her blacking out. FAMILY PSYCHIATRIC HISTORY: Oldest daughter with some mental illness FAMILY CHEMICAL DEPENDENCY HISTORY: Unknown at this time. SOCIAL HISTORY: Has 5 daughters who she is close with. Was once and . She has 4 grandchildren. MENTAL STATUS EXAM: She is alert and cooperative with the interview. Her speech is fluent, rapid at times. She denies any thoughts of harm to self or others. She does not present in a manic-like fashion. Mood quan she described as "okay." She does not show any active evidence of psychosis or agitation. Cognitively she appears very grossly intact. IMPRESSIONS: History of Major depressive disorder recurrent; history of OCD PLAN: We'll maintain Lamictal and Remeron as current. Mood currently appears to be stable. There is no current criteria for inpatient psychiatric hospitalization. Psychiatry can continue to follow up regarding monitoring her mood and for any psychotropic medication side effects.
[2017-10-04] MEDS ORDERED: MIRTAZAPINE 15 MG TAB PO SCH (21:00)
[2017-10-04 23:07] VITALS: RESP 16
--- NOTE | 2017-10-05 07:02 | XR ---
EXAMINATION TYPE: XR chest 1V DATE OF EXAM: 10/05/2017 HISTORY: shortness of breath. REFERENCE: Previous study dated 10/04/2017. FINDINGS: The patient's right internal jugular catheter is been removed. The lungs are clear. Pleural spaces are clear. The heart is not enlarged. IMPRESSION: NO ACTIVE INTRATHORACIC DISEASE.
[2017-10-05 07:40] LABS: Basophils # (A) 0.1 k/uL (0-0.2); Basophils % (A) 1 %; CH 30.3; CHCM 32.4; Eosinophils # (A) 0.2 k/uL (0-0.7); Eosinophils % (A) 3 %; HCT 38.3 % (34.0-46.0); HDW 2.44; HGB 12.2 gm/dL (11.4-16.0); Luc # (Auto) 0.13; Luc % (Auto) 2; Lymphocytes # (A) 2.9 k/uL (1.0-4.8); Lymphocytes % (A) 52 %; MCH 29.9 pg (25.0-35.0); MCHC 31.9 g/dL (31.0-37.0); MCV 93.7 fL (80.0-100.0); Mean Platelet Volume 7.9; Monocytes # (A) 0.3 k/uL (0-1.0); Monocytes % (A) 5 %; Neutrophils % (A) 36 %; RBC 4.08 m/uL (3.80-5.40); WBC 5.6 k/uL (3.8-10.6)
[2017-10-05 08:05] VITALS: BP 162/62; PULSE 65; TEMP 97.9
[2017-10-05 08:20] LABS: ALT 58 U/L (9-52); AST 44 U/L (14-36); Alkaline Phosphatase 109 U/L (38-126); Anion Gap 6 mmol/L; Blood Urea Nitrogen 15 mg/dL (7-17); Carbon Dioxide 25 mmol/L (22-30); Chloride 112 mmol/L (98-107); Glucose 101 mg/dL (74-99); Magnesium 1.7 mg/dL (1.6-2.3); Non-African American GFR(MDRD) >60 (>60 ml/min/1.73 sqM); Phosphorous 3.8 mg/dL (2.5-4.5); Sodium 143 mmol/L (137-145); Total Bilirubin 0.1 mg/dL (0.2-1.3); Total Protein 5.8 g/dL (6.3-8.2)
--- NOTE | 2017-10-05 09:13 | ECHOF ---
Referral Reason:low blood pressure MEASUREMENTS -------- HEIGHT: 162.6 cm WEIGHT: 54.4 kg BP: 99/55 IVSd: 0.9 cm (0.6 - 1.1) LVIDd: 5.1 cm (3.9 - 5.3) LVPWd: 0.9 cm (0.6 - 1.1) IVSs: 1.3 cm LVIDs: 2.8 cm LVPWs: 1.4 cm Ao Diam: 3.2 cm (2.0 - 3.7) AV Cusp: 2.3 cm (1.5 - 2.6) LA Diam: 2.6 cm (2.7 - 3.8) MV EXCURSION: 21.258 mm (> 18.000) MV EF SLOPE: 151 mm/s (70 - 150) EPSS: 0.9 cm MV E Nilesh: 0.82 m/s MV DecT: 297 ms MV A Nilesh: 0.80 m/s MV E/A Ratio: 1.01 RAP: 5.00 mmHg RVSP: 23.73 mmHg FINDINGS -------- Sinus rhythm. This was a technically good study. The left ventricular size is normal. Left ventricular wall thickness is normal. Overall left vent ricular systolic function is normal with, an EF between 55 - 60 %. The right ventricle is normal in size and function. The left atrium is normal in size. The right atrium is normal in size. The aortic valve is trileaflet, and appears structurally normal. No aortic stenosis or regurgitation. The mitral valve leaflets are mildly thickened. Mild mitral regurgitation is present. Mild tricuspid regurgitation present. The right ventricular systolic pressure, as measured by Doppl er, is 23.73mmHg. Pulmonic valve appears structurally normal. The aortic root size is normal. Normal inferior vena cava with normal inspiratory collapse consistent with estimated right atrial pre ssure of 5 mmHg. The pericardium is normal. CONCLUSIONS -------- 1. Sinus rhythm. 2. This was a technically good study. 3. The left ventricular size is normal. 4. Left ventricular wall thickness is normal. 5. Overall left ventricular systolic function is normal with, an EF between 55 - 60 %. 6. The right ventricle is normal in size and function. 7. The left atrium is normal in size. 8. The right atrium is normal in size. 9. The aortic valve is trileaflet, and appears structurally normal. No aortic stenosis or regurgitati on. 10. The mitral valve leaflets are mildly thickened. 11. Mild mitral regurgitation is present. 12. Mild tricuspid regurgitation present. 13. The right ventricular systolic pressure, as measured by Doppler, is 23.73mmHg. 14. Pulmonic valve appears structurally normal. 15. The aortic root size is normal. 16. Normal inferior vena cava with normal inspiratory collapse consistent with estimated right atrial pressure of 5 mmHg. 17. The pericardium is normal. [employer] BAG ASSEMBLER: Marichuy Holley RDCS
[2017-10-05 09:18] LABS: Manual Review Performed
[2017-10-05] MEDS: ONDANSETRON 4 MG/2 ML VIAL IVP PRN (09:21)
[2017-10-05] MEDS: PREGABALIN 50 MG CAP PO SCH (09:31)
[2017-10-05] MEDS ORDERED: ASPIRIN-ACET-CAFF 250-250-65MG 1 EACH TAB PO ONE (09:42)
[2017-10-05] MEDS: ENOXAPARIN 40 MG/0.4 ML SYRINGE SQ SCH (09:51)
[2017-10-05] MEDS: lamoTRIgine 100 MG TAB PO SCH (09:51)
--- NOTE | 2017-10-05 10:42 | P.PN ---
Subjective Progress Note Date: 10/05/17 Principal diagnosis: Possible overdose Progress note dated 10/05/2017 52-year-old female who was recently a patient in psychiatry unit. She has a history of chronic depression and anxiety. The patient had been on clonidine for anxiety and also was also given recently lisinopril for blood pressure control. She apparently became hypotensive presented to the emergency department with hypotension and bradycardia. She was given fluids and pressors. A central line was placed. Yesterday here in the unit she was doing much better and she was discharged out of the unit to the floor. The patient is doing much better. Typically is on Lamictal and Remeron. She sees a nurse practitioner up in the [facility]. She resides in [place]. The patient has no particular complaints today. Objective - Vital Signs Vital signs: Vital Signs Temp 97.9 F 10/05/17 08:03 Pulse 65 10/05/17 08:03 Resp 16 10/05/17 08:03 BP 162/62 10/05/17 08:03 Pulse Ox 99 10/05/17 08:03 Intake & Output 10/04/17 10/05/17 10/05/17 18:59 06:59 18:59 Intake Total 1501.014 2907 Output Total 1225 Balance 280.487 7174 Weight 59 kg Intake: IV 850 Sodium Chloride 0.9% 1, 850 000 ml @ 100 mls/hr IV . Q10H BRAD Rx#:[id number] Intake, IV Titration 576.677 0170 Amount Magnesium Sulfate-D5w Pmx 200 1 gm In Dextrose/Water 1 100ml.bag @ 100 mls/hr IVPB Q1H BRAD Rx#: [id number] Norepinephrin 16 mg-0.9% 46.973 Ns Pmx 16 mg In 250 ml @ Titrate IV .Q0M STA Rx#: [id number] Sodium Chloride 0.9% 1, 300 000 ml @ 150 mls/hr IV . Q6H40M BRAD Rx#:[id number] Sodium Chloride 0.9% 1, 75 1200 000 ml @ 75 mls/hr IV . [id number] BRAD Rx#:[id number] Oral 200 600 Output: Urine 1225 Other: Voiding Method Indwelling Catheter Indwelling Catheter # Voids 2 # Bowel Movements 1 - Exam No acute distress, oriented 3. HEENT examination is grossly unremarkable. Mucous membranes are moist. No oral lesions. Neck supple. Full range of motion. No adenopathy thyromegaly or neck vein distention. Cardiovascular examination reveals regular rhythm rate. S1-S2 normal. No S3 or S4. No discernible murmur noted. Lungs reveal clear breath sounds. Her sounds are equal bilaterally. No adventitious lung sounds including wheezes rhonchi or crackles. Abdomen soft bowel sounds are heard. No masses or tenderness. Extremities are intact. No cyanosis clubbing or edema. Skin is without rash or lesion. Neurologic examination is brief but nonfocal. - Labs CBC & Chem 7: 10/05/17 06:55 10/05/17 06:55 Labs: Abnormal Lab Results - Last 24 Hours (Table) 10/05/17 Range/Units 06:55 Chloride 112 H (98-107) mmol/L Glucose 101 H (74-99) mg/dL Total Bilirubin 0.1 L (0.2-1.3) mg/dL AST 44 H (14-36) U/L ALT 58 H (9-52) U/L Total Protein 5.8 L (6.3-8.2) g/dL Albumin 3.3 L (3.5-5.0) g/dL Microbiology - Last 24 Hours (Table) 10/03/17 22:44 Blood Culture - Preliminary Blood No Growth after 24 hours 10/03/17 23:15 Urine Culture - Preliminary Urine,Catheterized Assessment and Plan (1) Bradycardia Current Visit: Yes Status: Acute Code(s): R00.1 - BRADYCARDIA, UNSPECIFIED SNOMED Code(s): 83678011 (2) Depression Current Visit: Yes Status: Acute Code(s): F32.9 - MAJOR DEPRESSIVE DISORDER , SINGLE EPISODE, UNSPECIFIED SNOMED Code(s): 46103211 (3) Hypotension Current Visit: Yes Status: Acute Code(s): I95.9 - HYPOTENSION, UNSPECIFIED SNOMED Code(s): 28731785 (4) Major depressive disorder, recurrent, severe without psychotic features Current Visit: Yes Status: Acute Code(s): F33.2 - MAJOR DEPRESSV DISORDER, RECURRENT SEVERE W/O PSYCH FEATURES SNOMED Code(s): 04047940 (5) Chronic abdominal pain Current Visit: No Status: Acute Code(s): R10.9 - UNSPECIFIED ABDOMINAL PAIN SNOMED Code(s): 840027532 (6) History of OCD (obsessive compulsive disorder) Current Visit: No Status: Acute Code(s): Z86.59 - PERSONAL HISTORY OF OTHER MENTAL AND BEHAVIORAL DISORDERS SNOMED Code(s): 021183797 Plan: Plan dated 10/04/2017 The patient's doing well. I had a Anh the nurse to turn off the norepinephrine She can be transferred out to the floor. No additional recommendations are made. Prognosis is good. Plan dated 10/05/2017 This patient seemed be doing much better. Was transferred out of the ICU yesterday. She got to trouble with clonidine and lisinopril. She was chronically on clonidine for anxiety. Lisinopril was added on her last admission. She looks to both medications became profoundly hypotensive. She also did develop some bradycardia. She was treated with fluids and pressors and a central line. Doing much better today. Additional recommendations and suggestions are forthcoming. Time with Patient: Less than 30
--- NOTE | 2017-10-05 10:57 | PN ---
PROGRESS NOTE Mrs. Salas had episode of hypotension, bradycardia secondary to clonidine. This morning she is doing much better. Has no symptoms. Blood pressure is 150/70, pulse rate is 68 per minute. No JVD or carotid bruit. S1, S2 heard normally. Lungs are clear. Abdomen and lower extremity exam is unchanged. Central nervous system is normal. Echo revealed normal systolic function. I am recommending that we put on Hep- Lock. Increase activity. Place on lisinopril 5 mg at bedtime. Obtain EKG today and she can be discharged any time and follow up with her primary care physician. MMODL / IJN: [id number] /
--- NOTE | 2017-10-05 12:17 | P.DS ---
Providers Date of admission: 10/04/17 02:04 Expected date of discharge: 10/05/17 Attending physician: Alissa Emanuel MD Consults: 10/04/17 02:03 Consult Physician Routine Consulting Provider: Renzo Mcmahon Consult Reason/Comments: shock Do you want consulting provider notified?: Yes 10/04/17 02:06 Consult Physician Routine Consulting Provider: Johnathon Rosario Consult Reason/Comments: history Do you want consulting provider notified?: Yes Consult Physician Urgent Consulting Provider: Ramez Jaramillo Consult Reason/Comments: bradycardia Do you want consulting provider notified?: Yes 10/04/17 02:30 Consult Physician Stat Consulting Provider: Renzo Mcmahon Consult Reason/Comments: hypotension Do you want consulting provider notified?: Yes, Notify in am Primary care physician: Александр Uribe - Discharge Diagnosis(es) (1) Bradycardia 2/2 medications side effect Current Visit: Yes Status: Acute (2) Depression stable denies any suicidal or homicidal ideation Current Visit: Yes Status: Acute (3) Hypotension 2/2 medication side effects Current Visit: Yes Status: Resolved (4) Hypertension Current Visit: Yes Status: Acute Hospital Course: 52 year old female with history of Hypertension and depression. she was recently admitted for depression, and discharged on lisinopril and clonidine to manage her mood and blood pressure. however, it seems that she did not tolerate the Clonidine and resulted in symptomatic hypotension and sinus bradycardia, for which she was admitted to the ICU and managed there. Full workup performed, cardiology and critical care, and psychiatry assisted in her management. Echocardiogram showed preserved LV EF of 55-60% and otherwise unremarkable. CT abd and pelvis was unremarkable for acute process patient seen and examined on day of discharge, doing well , no new complaints, denies any dizziness, chest pain or trouble breathing. she is eager to go home General vital signs stable, asymptomatic sinus eduardo. pleasant and conversant lungs CTA B/L , no WRR, clear to percussion , normal resp effort CVS nl S1 S2 regular rhythm , no murmurs ABD soft lax no tenderness , BS + ext no leg edema, no tenderness to palpation of the calf muscles bilaterally , no digital cyanosis or ischemia psych alert, oriented to place ,person, time and situation EKG unremarkable showing sinus eduardo cardiology and psych cleared patient for discharge patient will be discharged in stable clinical condition transportation will be provided [facility] rec done clonidine discontinued OP follow up with cardiology , mental health and PCP Pertinent Studies: Echocardiogram, preserved left ventricular ejection fraction CT abd pelvis , no acute process Patient Condition at Discharge: Good Plan - Discharge Summary Discharge Rx Participant: No New Discharge Prescriptions: New Lisinopril [Zestril] 5 mg PO HS #30 tab Continue Qvu-Zvdz-Ijufw Acid [-U Capsule (formulary)] 1 cap PO DAILY Gdngzph-Wxwe-Zlbx [id number] [Excedrin] 1 tab PO Q4HR PRN PRN Reason: Migraine Headache Pregabalin [Lyrica] 50 mg PO TID #42 cap lamoTRIgine [LaMICtal] 200 mg PO DAILY #14 tablet Mirtazapine [Remeron] 15 mg PO HS #14 tablet metFORMIN HCL [Glucophage] 500 mg PO BID-W/MEALS #28 tab Pantoprazole Sodium [Protonix] 40 mg PO AC-BID #28 tablet.dr Discontinued cloNIDine HCL [Catapres] 0.1 mg PO TID #42 tab Lisinopril [Zestril] 5 mg PO DAILY #14 tab Discharge Medication List Jwscxnv-Demw-Werh [id number] [Excedrin] 1 tab PO Q4HR PRN 09/30/17 [History] Igp-Myjv-Sonso Acid [-U Capsule (formulary)] 1 cap PO DAILY [History] Mirtazapine [Remeron] 15 mg PO HS #14 tablet 10/03/17 [Rx] Pregabalin [Lyrica] 50 mg PO TID #42 cap 10/03/17 [Rx] lamoTRIgine [LaMICtal] 200 mg PO DAILY #14 tablet 10/03/17 [Rx] metFORMIN HCL [Glucophage] 500 mg PO BID-W/MEALS #28 tab 10/03/17 [Rx] Lisinopril [Zestril] 5 mg PO HS #30 tab 10/05/17 [Rx] Pantoprazole Sodium [Protonix] 40 mg PO AC-BID #28 tablet. 10/05/17 [Rx] Follow up Appointment(s)/Referral(s): Александр Uribe DO [Primary Care Provider] - 1-2 days Salinas Abarca MD [STAFF PHYSICIAN] - 1 Week Patient Instructions/Handouts: Bradycardia (GEN), Depression (GEN) Activity/Diet/Wound Care/Special Instructions: diet as tolerated activity as tolerated Discharge Disposition: HOME SELF-CARE
[2017-10-05] MEDS ORDERED: LISINOPRIL 5 MG TAB PO SCH (21:00)
== END 2017-10-05 13:35 | disposition home or self-care (01) | DRG 207 ==
LOC: EC 20:35 → 6ICU 10-04 02:04 → 5MS5E 10-04 17:36
PROVIDERS: ADMIT Internal Medicine; ATTEND Internal Medicine
PROC: 05HM33Z Insertion of Infusion Device into Right Internal Jugular Vein, Percutaneous Approach (ICD-10-PCS; principal; 2017-10-04)
DX: I95.2 Hypotension due to drugs (principal); R57.9 Shock, unspecified; F33.2 Major depressive disorder, recurrent severe without psychotic features; R00.1 Bradycardia, unspecified; T46.4X5A Adverse effect of angiotensin-converting-enzyme inhibitors, initial encounter; T46.5X5A Adverse effect of other antihypertensive drugs, initial encounter; E11.9 Type 2 diabetes mellitus without complications; F17.200 Nicotine dependence, unspecified, uncomplicated; F41.9 Anxiety disorder, unspecified; F42.9 Obsessive-compulsive disorder, unspecified; G89.29 Other chronic pain; I10 Essential (primary) hypertension; K21.9 Gastro-esophageal reflux disease without esophagitis; Z79.84 Long term (current) use of oral hypoglycemic drugs; Z79.899 Other long term (current) drug therapy; Z82.49 Family history of ischemic heart disease and other diseases of the circulatory system; Z87.11 Personal history of peptic ulcer disease; Z90.49 Acquired absence of other specified parts of digestive tract; Z98.84 Bariatric surgery status; R10.9 Unspecified abdominal pain; Z88.8 Allergy status to other drugs, medicaments and biological substances
CPT/HCPCS: 36415; 36556; 51702; 71010; 74177; 80053; 80175; 80306; 81003; 82550; 82553; 83520; 83605; 83735; 84100; 84443; 84484; 85025; 85610; 85730; 87040; 87086; 93005; 93306; 96361; 96365; 96366; 96374; 96375; 96376; 99291; 99292

== ENCOUNTER 2018-04-02 05:23 | Observation (INO) | payer OTHER ==
--- NOTE | 2018-04-02 06:07 | ED ---
Nausea/Vomiting/Diarrhea HPI - General Source: patient Mode of arrival: ambulatory Limitations: no limitations - History of Present Illness MD complaint: nausea, vomiting, diarrhea, abdominal pain Onset/Timin -: hour(s) Description of Vomiting: food contents Description of Diarrhea: water Associated Abdominal Pain: Yes Location: periumbilical Radiation: none Severity: severe Quality: cramping, sharp Consistency: constant Improves with: none Worsens with: none <Nakul Martinez - Last Filed: 04/02/18 06:05> <Renzo Cali - Last Filed: 04/02/18 07:43> - General Chief complaint: Nausea/Vomiting/Diarrhea Stated complaint: vomiting Time Seen by Provider: 04/02/18 05:34 - Related Data Home Medications Medication Instructions Recorded Confirmed Wpgxfyd-Pjqm-Vypi [id number] 1 tab PO Q4HR PRN 09/30/17 10/03/17 [Excedrin] Meg-Huuo-Lgenr Acid 1 cap PO DAILY 09/30/17 10/03/17 [-U Capsule (formulary)] Previous Rx's Medication Instructions Recorded Mirtazapine [Remeron] 15 mg PO HS #14 tablet 10/03/17 Pregabalin [Lyrica] 50 mg PO TID #42 cap 10/03/17 lamoTRIgine [LaMICtal] 200 mg PO DAILY #14 tablet 10/03/17 metFORMIN HCL [Glucophage] 500 mg PO BID-W/MEALS #28 tab 10/03/17 Lisinopril [Zestril] 5 mg PO HS #30 tab 10/05/17 Pantoprazole Sodium [Protonix] 40 mg PO AC-BID #28 tablet. 10/05/17 Allergies Allergy/AdvReac Type Severity Reaction Status Date / Time prochlorperazine Allergy Unknown Verified 04/02/18 05:33 [From Compazine] prochlorperazine edisylate Allergy Unknown Verified 04/02/18 05:33 [From Compazine] prochlorperazine maleate Allergy Unknown Verified 04/02/18 05:33 [From Compazine] Review of Systems ROS Other: All systems not noted in ROS Statement are negative. Constitutional: Denies: fever, chills Respiratory: Denies: cough, dyspnea Cardiovascular: Denies: chest pain, palpitations, edema Gastrointestinal: Reports: abdominal pain, nausea, vomiting, diarrhea. Denies: constipation, hematemesis, melena, hematochezia Genitourinary: Denies: dysuria, hematuria Musculoskeletal: Denies: back pain Skin: Denies: rash Neurological: Denies: headache <Nakul Martinez - Last Filed: 04/02/18 06:05> ROS Other: All systems not noted in ROS Statement are negative. <Renzo Cali - Last Filed: 04/02/18 07:43> ROS Statement: Those systems with pertinent positive or pertinent negative responses have been documented in the HPI. Past Medical History Past Medical History: GERD/Reflux, Hypertension Additional Past Medical History / Comment(s): Depression, history of suicidal ideations. History of gastric ulcer. Bowel obstruction Fall 2015 History of Any Multi-Drug Resistant Organisms: None Reported Past Surgical History: Bowel Resection Additional Past Surgical History / Comment(s): ani en y gastric bypass bowel obstruction, GASTRIC SURGERY FOR ULCERS Past Anesthesia/Blood Transfusion Reactions: No Reported Reaction Past Psychological History: Anxiety, Depression Smoking Status: Current every day smoker Past Alcohol Use History: Rare Past Drug Use History: Marijuana - Past Family History Mother Family Medical History: GERD/Reflux, Hypertension Additional Family Medical History / Comment(s): Pt. reports her mother is overall healthy and is 81 years old. family Additional Family Medical History / Comment(s): denies any history of cancer or CAD in the family <Nakul Martinez - Last Filed: 04/02/18 06:05> General Exam Limitations: no limitations General appearance: alert, in no apparent distress Head exam: Present: atraumatic, normocephalic Eye exam: Present: normal appearance. Absent: scleral icterus, conjunctival injection ENT exam: Present: normal oropharynx Neck exam: Present: normal inspection Respiratory exam: Present: normal lung sounds bilaterally. Absent: respiratory distress, wheezes, rales, rhonchi, stridor Cardiovascular Exam: Present: regular rate, normal rhythm, normal heart sounds. Absent: systolic murmur, diastolic murmur, rubs, gallop GI/Abdominal exam: Present: soft, hyperactive bowel sounds. Absent: distended, tenderness, guarding, rebound, rigid, mass, pulsatile mass, hernia Extremities exam: Present: normal inspection, normal capillary refill. Absent: pedal edema, calf tenderness Back exam: Present: normal inspection. Absent: CVA tenderness (R), CVA tenderness (L) Neurological exam: Present: alert Skin exam: Present: warm, dry, intact, normal color. Absent: rash <Nakul Martinez - Last Filed: 04/02/18 06:05> Vital Signs 04/02/18 05:31 Temperature 99.1 F Pulse Rate 90 Respiratory 18 Rate Blood Pressure 132/72 O2 Sat by Pulse 100 Oximetry Medical Decision Making <Nakul Martinez - Last Filed: 04/02/18 06:05> - Lab Data Result diagrams: 04/02/18 05:46 04/02/18 05:46 - Radiology Data Radiology results: report reviewed (I did review the imaging and report the imaging reveals evidence of gastroenteritis no obstruction some evidence of mesenteric changes which could reflect panniculitis), image reviewed <Renzo Cali - Last Filed: 04/02/18 07:43> - Medical Decision Making I did discuss findings with the patient she is feeling somewhat better she denies drinking alcohol she does have evidence of pancreatitis she will be admitted for IV hydration and pain control. (Renzo Cali) - Lab Data Lab Results 04/02/18 04/02/18 04/02/18 Range/Units 05:46 05:46 06:11 WBC 11.5 H (3.8-10.6) k/uL RBC 4.22 (3.80-5.40) m/uL Hgb 12.9 (11.4-16.0) gm/dL Hct 40.0 (34.0-46.0) % MCV 94.7 (80.0-100.0) fL MCH 30.5 (25.0-35.0) pg MCHC 32.2 (31.0-37.0) g/dL RDW 14.2 (11.5-15.5) % Plt Count 243 (150-450) k/uL Neutrophils % 88 % Lymphocytes % 5 % Monocytes % 4 % Eosinophils % 2 % Basophils % 0 % Neutrophils # 10.1 H (1.3-7.7) k/uL Lymphocytes # 0.6 L (1.0-4.8) k/uL Monocytes # 0.5 (0-1.0) k/uL Eosinophils # 0.2 (0-0.7) k/uL Basophils # 0.0 (0-0.2) k/uL Sodium 139 (137-145) mmol/L Potassium 4.5 (3.5-5.1) mmol/L Chloride 109 H (98-107) mmol/L Carbon Dioxide 20 L (22-30) mmol/L Anion Gap 10 mmol/L BUN 20 H (7-17) mg/dL Creatinine 0.45 L (0.52-1.04) mg/dL Est GFR (CKD-EPI)AfAm >90 (>60 ml/min/1.73 sqM) Est GFR (CKD-EPI)NonAf >90 (>60 ml/min/1.73 sqM) Glucose 124 H (74-99) mg/dL Calcium 8.2 L (8.4-10.2) mg/dL Total Bilirubin 0.3 (0.2-1.3) mg/dL AST 67 H (14-36) U/L ALT 46 (9-52) U/L Alkaline Phosphatase 91 (38-126) U/L Total Protein 6.0 L (6.3-8.2) g/dL Albumin 3.8 (3.5-5.0) g/dL Amylase 75 (30-110) U/L Lipase 698 H (23-300) U/L Urine Color Light Yellow Urine Appearance Clear (Clear) Urine pH 5.0 (5.0-8.0) Ur Specific Redig 1.016 (1.001-1.035) Urine Protein Negative (Negative) Urine Glucose (UA) Negative (Negative) Urine Ketones Negative (Negative) Urine Blood Negative (Negative) Urine Nitrite Negative (Negative) Urine Bilirubin Negative (Negative) Urine Urobilinogen <2.0 (<2.0) mg/dL Ur Leukocyte Esterase Negative (Negative) Urine HCG, Qual (Not Detectd) 04/02/18 Range/Units 06:11 WBC (3.8-10.6) k/uL RBC (3.80-5.40) m/uL Hgb (11.4-16.0) gm/dL Hct (34.0-46.0) % MCV (80.0-100.0) fL MCH (25.0-35.0) pg MCHC (31.0-37.0) g/dL RDW (11.5-15.5) % Plt Count (150-450) k/uL Neutrophils % % Lymphocytes % % Monocytes % % Eosinophils % % Basophils % % Neutrophils # (1.3-7.7) k/uL Lymphocytes # (1.0-4.8) k/uL Monocytes # (0-1.0) k/uL Eosinophils # (0-0.7) k/uL Basophils # (0-0.2) k/uL Sodium (137-145) mmol/L Potassium (3.5-5.1) mmol/L Chloride (98-107) mmol/L Carbon Dioxide (22-30) mmol/L Anion Gap mmol/L BUN (7-17) mg/dL Creatinine (0.52-1.04) mg/dL Est GFR (CKD-EPI)AfAm (>60 ml/min/1.73 sqM) Est GFR (CKD-EPI)NonAf (>60 ml/min/1.73 sqM) Glucose (74-99) mg/dL Calcium (8.4-10.2) mg/dL Total Bilirubin (0.2-1.3) mg/dL AST (14-36) U/L ALT (9-52) U/L Alkaline Phosphatase (38-126) U/L Total Protein (6.3-8.2) g/dL Albumin (3.5-5.0) g/dL Amylase (30-110) U/L Lipase (23-300) U/L Urine Color Urine Appearance (Clear) Urine pH (5.0-8.0) Ur Specific Redig (1.001-1.035) Urine Protein (Negative) Urine Glucose (UA) (Negative) Urine Ketones (Negative) Urine Blood (Negative) Urine Nitrite (Negative) Urine Bilirubin (Negative) Urine Urobilinogen (<2.0) mg/dL Ur Leukocyte Esterase (Negative) Urine HCG, Qual Not Detected (Not Detectd) Disposition <Nakul Martinez - Last Filed: 04/02/18 06:05> <Renzo Cali - Last Filed: 04/02/18 07:43> Clinical Impression: Acute pancreatitis, Abdominal pain, Dehydration Disposition: ADMITTED IP TO THIS [facility] Condition: Stable Referrals: Александр Uribe DO [Primary Care Provider] - 1-2 days
[2018-04-02 06:27] LABS: Appearance,Urine Clear (Clear); Bilirubin,Urine Negative (Negative); Blood,Urine Negative (Negative); Color,Urine Light Yellow; Glucose,Urine (UA) Negative (Negative); Ketones,Urine Negative (Negative); Leukocyte Esterase,Urine Negative (Negative); Nitrite,Urine Negative (Negative); Protein,Urine Negative (Negative); Specific Gravity,Urine 1.016 (1.001-1.035); Urobilinogen,Urine <2.0 mg/dL (<2.0)
[2018-04-02 06:31] LABS: ALT 46 U/L (9-52); AST 67 U/L (14-36); Albumin 3.8 g/dL (3.5-5.0); Alkaline Phosphatase 91 U/L (38-126); Amylase 75 U/L (30-110); Anion Gap 10 mmol/L; Blood Urea Nitrogen 20 mg/dL (7-17); Calcium 8.2 mg/dL (8.4-10.2); Carbon Dioxide 20 mmol/L (22-30); Chloride 109 mmol/L (98-107); Glucose 124 mg/dL (74-99); Lipase 698 U/L (23-300); Potassium 4.5 mmol/L (3.5-5.1); Sodium 139 mmol/L (137-145); Total Bilirubin 0.3 mg/dL (0.2-1.3)
[2018-04-02 06:32] LABS: Basophils % (A) 0 %; Eosinophils # (A) 0.2 k/uL (0-0.7); Eosinophils % (A) 2 %; HGB 12.9 gm/dL (11.4-16.0); Lymphocytes # (A) 0.6 k/uL (1.0-4.8); Lymphocytes % (A) 5 %; MCH 30.5 pg (25.0-35.0); MCHC 32.2 g/dL (31.0-37.0); MCV 94.7 fL (80.0-100.0); Mean Platelet Volume 8.7; Monocytes # (A) 0.5 k/uL (0-1.0); Monocytes % (A) 4 %; Neutrophils # (A) 10.1 k/uL (1.3-7.7); Neutrophils % (A) 88 %; Platelet Count 243 k/uL (150-450); RBC 4.22 m/uL (3.80-5.40); RDW 14.2 % (11.5-15.5); WBC 11.5 k/uL (3.8-10.6)
[2018-04-02] MEDS ORDERED: ONDANSETRON 4 MG/2 ML VIAL IVP STA (06:38)
[2018-04-02] MEDS ORDERED: MORPHINE SULFATE 4 MG/ML SYRINGE IV STA (06:38)
--- NOTE | 2018-04-02 07:24 | CT ---
EXAMINATION TYPE: CT abdomen pelvis wo con DATE OF EXAM: 04/02/2018 HISTORY: Pain with nausea and vomiting CT DLP: 275.3 mGycm. Automated Exposure Control for Dose Reduction was Utilized. TECHNIQUE: CT scan of the abdomen and pelvis is performed without oral or IV contrast. COMPARISON: CT abdomen and pelvis October 04, 2017 FINDINGS: Within the limitations of a non-contrast study, the following observations are made. LUNG BASES: No significant abnormality is appreciated. LIVER/GB: No significant abnormality is appreciated. PANCREAS: No significant abnormality is seen. SPLEEN: No significant abnormality is seen. ADRENALS: No significant abnormality is seen. KIDNEYS: No renal stones or hydronephrosis is seen bilaterally. BOWEL: Evaluation of bowel is slightly suboptimal secondary to lack of enteric contrast. There are el rgical sutures epigastric region from gastric bypass surgery. There are additional sutures in the lef t lower quadrant. There is fluid dilated bowel loop at this level suspected small bowel with air-flui d level measuring up to 5.0 cm in diameter. Superior to this there is moderate mesenteric edema and p rominent but subcentimeter mesenteric lymph nodes. This was present in prior study but is more promin ent. Majority of small bowel loops throughout the abdomen and pelvis show no suspicious dilatation. T here is no suspicious colonic dilatation. Some fluid is present in the cecum. Air-fluid level also se en in the rectum. GENITAL ORGANS: No gross abnormality seen. LYMPH NODES: No greater than 1cm abdominal or pelvic lymph nodes are appreciated. OSSEOUS STRUCTURES: No significant abnormality is seen. OTHER: No significant additional abnormality is seen. IMPRESSION: Fluid and cecum and rectum raises concern for diarrhea and/or colitis. Overall nonobstruc tive bowel gas pattern. Focal dilatation of small bowel loop at level of sutures is noted. Adjacent m isty mesentery could reflect mesenteric panniculitis. Both findings more prominent versus prior study . Can't exclude internal hernia.
[2018-04-02] MEDS ORDERED: ONDANSETRON 4 MG/2 ML VIAL IVP PRN (07:43)
[2018-04-02] MEDS ORDERED: NALOXONE 0.4 MG/ML 1 ML VIAL IV PRN (07:43)
[2018-04-02] MEDS: HYDROmorphone 0.5 MG/0.5 ML SYRINGE IVP PRN ×4 (08:18→19:58)
[2018-04-02] MEDS ORDERED: PANTOPRAZOLE 40 MG/10 ML VIAL IVP SCH (09:00)
[2018-04-02] MEDS: SODIUM CHLORIDE 0.9% 1,000 ML IV SCH ×2 (12:37→15:43)
--- NOTE | 2018-04-02 17:30 | HP ---
HISTORY AND PHYSICAL DATE OF SERVICE: 04/02/2018 DATE OF ADMISSION: 04/02/2018. PRESENTING COMPLAINT: Abdominal pain, diarrhea. HISTORY OF PRESENTING COMPLAINT: Pleasant 52-year-old patient. Chronic stable medical conditions include GERD, osteoarthritis, anxiety, depression. Patient yesterday evening started off with increasing pain in the epigastric area going to the back with nausea and vomiting. Also patient had multiple loose stools. Denies any fever or chills. Patient has had Pa-en-Y surgery done because of peptic ulcer disease complications and had more surgery following that. Patient does feel tired, weak, rundown. Abdominal pain was a bit better when I saw her. Patient was felt to have acute pancreatitis in the ER, was made n.p.o. There was no blood in the stool. REVIEW OF SYSTEMS: CONSTITUTIONAL: Tired. HEENT: None. RESPIRATORY: None. CARDIOVASCULAR: None. GASTROINTESTINAL: As above. GENITOURINARY: None. MUSCULOSKELETAL: Arthritic pain in different joints. DERMATOLOGICAL: None. HEMATOLOGICAL: None. LYMPHATICS: None. PSYCHIATRY: Anxiety, depression. NEUROLOGICAL: None. PAST MEDICAL HISTORY: 1. GERD. 2. Questionable gastroparesis. 3. Osteoarthritis. 4. Anxiety. 5. Depression. 6. Peptic ulcer disease. 7. Bowel obstruction. 8. surgery. 9. Chronic low back pain. 10.DJD. PAST SURGICAL HISTORY: 1. Bowel resection. 2. Pa-en-Y gastric bypass surgery. 3. Gastric surgery for peptic ulcer disease. PRIOR PSYCH HISTORY: Anxiety, depression. SOCIAL HISTORY: Lives alone. Has had history of depression, anxiety and OCD. Has had multiple mental health admissions. Patient has been smoking for about 35 years; she is down to a few cigarettes a day. Alcohol rarely. Patient did abuse prescriptions in the past; not anymore. Has a medical marijuana cardiac and smokes every other day. FAMILY HISTORY: GERD and hypertension. HOME MEDICATIONS: 1. Protonix 40 mg b.i.d. 2. Remeron 15 mg at bedtime. 3. Excedrin 1 tablet p.o. q.4 p.r.n. ALLERGIES: COMPAZINE. PHYSICAL EXAMINATION: Temperature 99.1, pulse 90, respiration 18, blood pressure 132/72, pulse ox 100% on room air. GENERAL APPEARANCE: Average build. Lying in bed. Awake. EYES: Pupils equal. Conjunctivae normal. HEENT: External appearance of nose and ears normal. Oral cavity normal. NECK: JVD not raised. Mass not palpable. RESPIRATORY: Effort normal. LUNGS: Slightly decreased breath sounds. CARDIOVASCULAR: First and second sounds normal. No edema. ABDOMEN: Epigastric tenderness. No guarding or rigidity. Liver and spleen not palpable. Soft. LYMPHATIC: No lymph node palpable in neck or axillae. PSYCHIATRY: Alert and oriented x3. Mood and affect normal. NEUROLOGICAL: Pupils equal. Cranial nerves grossly intact. Power and sensation grossly intact. INVESTIGATIONS: White count 11.5, hemoglobin 12.9, potassium 4.5, BUN 20, creatinine 0.45. Amylase 75, lipase 698. CT scan of abdomen and pelvis nonspecific. ASSESSMENT: 1. This patient presents with one day of increasing abdominal pain with nausea, vomiting, multiple loose stools; no blood, no fever, no chills; most likely acute severe gastroenteritis. 2. Possible mild acute pancreatitis. 3. Gastroesophageal reflux disease. 4. Primary osteoarthritis in multiple joints, including the lower lumbar spine. 5. Anxiety and depression not otherwise specified. PLAN: Patient initially was made n.p.o. Later in the evening will start the patient on clear liquids. Patient is getting IV fluids. Home medications are resumed. Will get a GI opinion. I expect this to get better on its own. Care was discussed with the patient. Questions were answered. JIMMY / ROSITA: [id number] /
[2018-04-02] MEDS: ENOXAPARIN 40 MG/0.4 ML SYRINGE SQ SCH (17:40)
[2018-04-02] MEDS: PANTOPRAZOLE 40 MG TABLET PO SCH (17:40)
[2018-04-02] MEDS: LACTATED RINGERS 1,000 ML IV SCH (19:59)
[2018-04-02] MEDS: Acetaminophen-Codeine 300-30mg TAB PO PRN (20:21)
[2018-04-02] MEDS ORDERED: MIRTAZAPINE 15 MG TAB PO SCH (21:00)
[2018-04-02 23:10] VITALS: TEMP 98.1
[2018-04-03] MEDS: LACTATED RINGERS 1,000 ML IV SCH ×2 (01:36→08:41)
[2018-04-03] MEDS: Acetaminophen-Codeine 300-30mg TAB PO PRN ×2 (05:41→11:18)
[2018-04-03 05:46] VITALS: BP 126/69; PULSE 71; RESP 18
[2018-04-03] MEDS: ENOXAPARIN 40 MG/0.4 ML SYRINGE SQ SCH (08:40)
[2018-04-03] MEDS: PANTOPRAZOLE 40 MG TABLET PO SCH (08:40)
[2018-04-03 08:57] LABS: Amylase <30 U/L (30-110); Lipase 11 U/L (23-300)
--- NOTE | 2018-04-03 09:41 | P.CONS ---
History of Present Illness - Reason for Consult Consult date: 04/03/18 Pancreatitis Requesting physician: Justice Guillory - History of Present Illness 52-year-old female with a history of extensive surgical history for bleeding peptic ulcer disease including Ani-en-Y a few years ago presents with intractable nausea vomiting abdominal pain and nonbloody diarrhea. Patient ate [employer] prior to admission and thought her symptoms were related to food poisoning. Denies fever chills hematemesis hematochezia melena. This morning she feels much better minimal abdominal discomfort. No further diarrhea. Tolerating clear liquids. White count 11.5. Hemoglobin 12.9. BUN 20. Creatinine 0.4. Lipase 698. Amylase 75. This morning lipase 11. Amylase less than 30. Total bilirubin 0.3. AST 67. ALT 46. AP 91. No history of pancreatitis. No history of alcohol abuse. No changes in medications. Patient typically does not have this type of abdominal pain but does occasionally get some abdominal discomfort. CT abdomen and pelvis was suboptimal secondary to lack of oral contrast. Some dilated bowel loops in the left lower quadrant measuring 5 cm, superior to this is moderate mesenteric edema present on prior study but more prominent now. Majority of small bowel loops throughout the abdomen and pelvis showed no suspicious dilatation. No colonic dilatation. Internal hernia cannot be excluded. Possible mesenteric panniculitis. Review of Systems Constitutional: Denies fever, chills, sweats, weight gain, or loss. HEENT: Negative for migraines, blurred vision or loss, earaches, drainage, tinnitus, oral mucosal lesions, dysphagia, or odynophagia. CARDIAC: Negative for chest pain, arrhythmias, or palpitation. RESPIRATORY: Negative for shortness of breath, hemoptysis, cough, or sputum production. GI: See HPI for pertinent findings. : Negative for hematuria, urgency, frequency, polyuria, or dysuria. GYNc: Denies possibility of . Negative vaginal discharge. MUSCULOSKELETAL: Negative for muscle aches, swelling, arthritis, and arthralgias. NEUROLOGIC: Negative for stroke or TIA. ENDOCRINE: Negative for thyroid problems. SKIN: Negative for rash or itching. PSYCHIATRIC: Negative history for depression and anxiety Past Medical History Past Medical History: GERD/Reflux, Hypertension Additional Past Medical History / Comment(s): Past hypotension/bradycardia thought to be medication related, bowel obstruction with surgery, PUD with surgery, gastroparesis, chronic low back pain, DJD, heart murmur as a child. History of Any Multi-Drug Resistant Organisms: None Reported Past Surgical History: Bowel Resection Additional Past Surgical History / Comment(s): ani en y gastric bypass, gastric surgery for PUD, colonoscopy. Past Anesthesia/Blood Transfusion Reactions: No Reported Reaction Smoking Status: Current every day smoker - Past Family History Mother Family Medical History: GERD/Reflux, Hypertension Additional Family Medical History / Comment(s): Pt. reports her mother is overall healthy and is 81 years old. family Additional Family Medical History / Comment(s): denies any history of cancer or CAD in the family Medications and Allergies Home Medications Medication Instructions Recorded Confirmed Type Grvtshl-[id number]-Odyr [id number] 1 tab PO Q4HR PRN 09/30/17 04/02/18 History [Excedrin] Mirtazapine [Remeron] 15 mg PO HS #14 tablet 10/03/17 04/02/18 Rx Pantoprazole Sodium [Protonix] 40 mg PO AC-BID #28 tablet. 10/05/17 04/02/18 Rx Allergies Allergy/AdvReac Type Severity Reaction Status Date / Time prochlorperazine Allergy Unknown Verified 04/02/18 07:47 [From Compazine] prochlorperazine edisylate Allergy Unknown Verified 04/02/18 07:47 [From Compazine] prochlorperazine maleate Allergy Unknown Verified 04/02/18 07:47 [From Compazine] Physical Exam Vitals: Vital Signs Temp Pulse Pulse Resp BP BP Pulse Ox 04/03/18 05:46 98.1 F 71 18 126/69 97 04/02/18 23:00 98.1 F 64 16 96/51 94 L 04/02/18 15:00 100.0 F H 78 16 100/53 99 04/02/18 08:38 97.9 F 90 17 118/68 96 04/02/18 08:00 98.5 F 86 18 105/55 96 Intake and Output 04/02/18 04/03/18 04/03/18 22:59 06:59 14:59 Other: Voiding Method Toilet # Voids 2 2 General appearance: The patient is alert, oriented, in no acute distress. HET: Head is normocephalic and atraumatic. Pupils are equal and reactive. Oropharynx is clear without lesions. Neck: Supple without lymphadenopathy. Trachea midline. Heart: S1 S2. Regular rate and rhythm. Lungs: No crackles or wheezes are heard. Abdomen: Soft, nontender, nondistended with bowel sounds. No peritoneal signs. No palpable organomegaly or masses. Extremities: Normal skin color and turgor. No cyanosis, rash, ulceration, clubbing, or edema. Radial and pedal pulses are 2/4 bilaterally. Neurological: No focal deficits. Strength and sensation are grossly intact. Results CBC & Chem 7: 04/02/18 05:46 04/02/18 05:46 CT scan - abdomen: report reviewed (Dr. Martino) Assessment and Plan (1) Abdominal pain Narrative/Plan: 52-year-old female presents with a 1 day history of intractable nausea vomiting nonbloody diarrhea with nonspecific elevation of lipase normal amylase with a history of multiple abdominal surgeries for bleeding peptic ulcer disease including Ani-en-Y. CT findings suggestive of possible mesenteric panniculitis internal hernia cannot be excluded. Doubt clinical presentation is secondary to pancreatitis could be gastroenteritis however with a history of Ani-en-Y an internal hernia such as Soto's defect possible intermittent biliopancreatic limb obstruction secondary to adhesions from multiple abdominal surgeries cannot be excluded however presently her abdominal symptoms and lipase have improved significantly. Current Visit: Yes Status: Acute Code(s): R10.9 - UNSPECIFIED ABDOMINAL PAIN SNOMED Code(s): 79620629 (2) Elevated lipase Current Visit: Yes Status: Acute Code(s): R74.8 - ABNORMAL LEVELS OF OTHER SERUM ENZYMES SNOMED Code(s): 270398216 (3) History of Ani-en-Y gastric bypass Current Visit: Yes Status: Acute Code(s): Z98.84 - BARIATRIC SURGERY STATUS SNOMED Code(s): 698172148 (4) History of abdominal surgery Current Visit: Yes Status: Chronic Code(s): Z98.890 - OTHER SPECIFIED POSTPROCEDURAL STATES SNOMED Code(s): 834833789 Plan: 1. Advise general surgical consult if abdominal pain does not improve or worsens. Presently tolerating a diet with minimal abdominal discomfort. Will advance diet if tolerated she may be discharged. Patient was advised to follow with her PCP and general surgeon after discharge. Thank you for this kind referral and the opportunity to participate in the care of your patient. This consultation was discussed with Dr. Martino. The impression and plan of care have been directed as dictated.
--- NOTE | 2018-04-09 06:26 | DS ---
DISCHARGE SUMMARY DATE OF ADMISSION: 04/02/18. DATE OF DISCHARGE: April 03, 2018. FINAL DIAGNOSES: 1. Acute severe gastroenteritis possibly viral. 2. Acute mild pancreatitis. 3. Gastroesophageal reflux disease. 4. Primary osteoarthritis multiple joints including the lower lumbar spine. 5. Anxiety/depression, not otherwise specified. HOSPITAL COURSE: This patient presented with epigastric pain, nausea, vomiting, multiple loose stools, has a history of Pa-en-Y gastric bypass surgery from prior peptic ulcer disease. The patient's pancreatic enzymes were slightly elevated. The patient did have a CT scan of the abdomen and pelvis in the ER and pelvis was nonspecific. There was some mesenteric edema. The patient is managed conservatively with IV fluids and did better by the following day. Tolerating a light diet. Seen by Gastroenterology, Dr. Martino, who advised the diet to be advanced as tolerated. By the time of discharge, doing much better, tolerating light diet. On examination abdomen soft and nontender. Patient is up and about. Lipase had come down nicely. PHYSICAL EXAMINATION: ABDOMEN: Soft, nontender. LUNGS: Clear. DISCHARGE MEDICATIONS: 1. Excedrin 1 tab q.4h p.r.n. 2. Remeron 50 mg p.o. q.h.s. 3. Protonix 40 mg b.i.d. FOLLOW UP: Follow up with Dr. Martino in 2 weeks. Follow up with Dr. Uribe in 1-2 days. DIET: Low-fat diet. Copy to Dr. Uribe. MMKAVYA / ROSITA: [id number] /
== END 2018-04-03 15:11 | disposition home or self-care (01) ==
LOC: EC 05:23 → 4MS4W 07:46
PROVIDERS: ADMIT Hospitalist; ATTEND Hospitalist
DX: K52.9 Noninfective gastroenteritis and colitis, unspecified (principal); K85.90 Acute pancreatitis without necrosis or infection, unspecified; K21.9 Gastro-esophageal reflux disease without esophagitis; E86.0 Dehydration; R60.9 Edema, unspecified; I10 Essential (primary) hypertension; M54.5 Low back pain; G89.29 Other chronic pain; F42.9 Obsessive-compulsive disorder, unspecified; F17.210 Nicotine dependence, cigarettes, uncomplicated; M15.9 Polyosteoarthritis, unspecified; F32.9 Major depressive disorder, single episode, unspecified; F41.9 Anxiety disorder, unspecified; M47.9 Spondylosis, unspecified; Z79.899 Other long term (current) drug therapy; Z79.84 Long term (current) use of oral hypoglycemic drugs; Z88.8 Allergy status to other drugs, medicaments and biological substances; Z87.11 Personal history of peptic ulcer disease; Z91.5 Personal history of self-harm; Z82.49 Family history of ischemic heart disease and other diseases of the circulatory system; Z83.79 Family history of other diseases of the digestive system; F19.11 Other psychoactive substance abuse, in remission
CPT/HCPCS: 99285 ×2; 96374 ×2; 96375 ×3; 96376; 96372 ×2; 36415; 80053; 82150 ×2; 83690 ×2; 85025; 81003; 81025; 74176; G0378 ×2; J2270; J2405; J1650 ×2; J1170

== ENCOUNTER 2018-06-19 16:57 | Emergency (ER) | payer OTHER ==
[2018-06-19] MEDS ORDERED: SODIUM CHLORIDE 0.9% 1,000 ML IV STA (19:29)
[2018-06-19] MEDS ORDERED: KETOROLAC 30 MG/ML 1 ML VIAL IVP STA (19:43)
--- NOTE | 2018-06-19 19:46 | ED ---
General Adult HPI - General Chief complaint: Extremity Problem,Nontraumatic Stated complaint: back pain Time Seen by Provider: 06/19/18 19:05 Source: patient, RN notes reviewed Mode of arrival: wheelchair Limitations: no limitations - History of Present Illness Initial comments: 53-year-old female presents to the emergency department for a chief complaint of left upper back and breast pain times one day. Patient states she woke up with a pain that starts in her left shoulder blade and radiates into her left breast. Patient states the pain was severe and took her breath away. Patient denies shortness of breath otherwise. Patient states the pain is worse when she twists and bends. Patient has not taken anything for pain as of yet. Patient denies any cardiac history. Patient does states she was admitted for pancreatitis twice in the past with the last time being earlier this year. Patient denies abdominal pain. Patient denies any urinary symptoms. Patient has no other complaints at this time including shortness of breath, chest pain, abdominal pain, nausea or vomiting, headache, or visual changes. - Related Data Home Medications Medication Instructions Recorded Confirmed [id number]-[id number] [id number] 1 tab PO Q4HR PRN 09/30/17 04/02/18 [Excedrin] Previous Rx's Medication Instructions Recorded Mirtazapine [Remeron] 15 mg PO HS #14 tablet 10/03/17 Pantoprazole Sodium [Protonix] 40 mg PO AC-BID #28 tablet. 10/05/17 Cyclobenzaprine [Flexeril] 5 mg PO TID #12 tablet 06/19/18 Ibuprofen [Motrin] 600 mg PO Q6HR PRN #20 tab 06/19/18 Allergies Allergy/AdvReac Type Severity Reaction Status Date / Time prochlorperazine Allergy Unknown Verified 06/19/18 18:37 [From Compazine] prochlorperazine edisylate Allergy Unknown Verified 06/19/18 18:37 [From Compazine] prochlorperazine maleate Allergy Unknown Verified 06/19/18 18:37 [From Compazine] Review of Systems ROS Statement: Those systems with pertinent positive or pertinent negative responses have been documented in the HPI. ROS Other: All systems not noted in ROS Statement are negative. Past Medical History Past Medical History: GERD/Reflux, Hypertension Additional Past Medical History / Comment(s): Past hypotension/bradycardia thought to be medication related, bowel obstruction with surgery, PUD with surgery, gastroparesis, chronic low back pain, DJD, heart murmur as a child. History of Any Multi-Drug Resistant Organisms: None Reported Past Surgical History: Bowel Resection Additional Past Surgical History / Comment(s): ani en y gastric bypass, gastric surgery for PUD, colonoscopy. Past Anesthesia/Blood Transfusion Reactions: No Reported Reaction Past Psychological History: Anxiety, Depression Smoking Status: Current every day smoker Past Alcohol Use History: Occasional Past Drug Use History: Marijuana - Past Family History Mother Family Medical History: GERD/Reflux, Hypertension Additional Family Medical History / Comment(s): Pt. reports her mother is overall healthy and is 81 years old. family Additional Family Medical History / Comment(s): denies any history of cancer or CAD in the family General Exam Limitations: no limitations General appearance: alert, in no apparent distress Head exam: Present: atraumatic, normocephalic, normal inspection Eye exam: Present: normal appearance. Absent: scleral icterus, conjunctival injection ENT exam: Present: normal exam, mucous membranes moist Neck exam: Present: normal inspection, full ROM. Absent: tenderness, meningismus, lymphadenopathy Respiratory exam: Present: normal lung sounds bilaterally. Absent: respiratory distress, wheezes, rales, rhonchi, stridor Cardiovascular Exam: Present: regular rate, normal rhythm, normal heart sounds, other (Left breast appears within normal limits. No signs of infection such as erythema or drainage. Patient states it is mildly tender to palpation). Absent : systolic murmur, diastolic murmur, rubs, gallop, clicks GI/Abdominal exam: Present: soft, tenderness (minimal epigastric tenderness. No other tenderness), normal bowel sounds. Absent: distended, guarding, rebound, rigid Extremities exam: Present: full ROM (Full range motion of left shoulder including flexion abduction and extension), normal capillary refill (Capillary refill less than 2 seconds and radial pulse 2+.). Absent: tenderness (No tenderness in the left shoulder), joint swelling Back exam: Present: tenderness (tenderness to left trapezius just medial to scapula). Absent: vertebral tenderness (no tenderness of cervical thoracic or lumbar spine) Neurological exam: Present: alert, oriented X3, CN II-XII intact Psychiatric exam: Present: normal affect, normal mood Course Vital Signs 06/19/18 06/19/18 06/19/18 18:35 19:19 19:20 Temperature 98.6 F Pulse Rate 73 70 Respiratory 18 20 20 Rate Blood Pressure 181/15 197/91 O2 Sat by Pulse 99 97 Oximetry 06/19/18 21:08 Temperature 97.9 F Pulse Rate 77 Respiratory 18 Rate Blood Pressure 159/74 O2 Sat by Pulse 97 Oximetry EKG Findings - EKG Comments: EKG Findings:: Normal sinus rhythm, ventricular rate 66, KS interval 136, QRS duration 94, no signs of ST elevation or depression Medical Decision Making - Medical Decision Making 53-year-old female presents to the emergency determine for a chief complaint of left shoulder and breast pain times one day. Patient woke up with the pain. Patient states movement makes the pain worse. Patient does have some tenderness along the scapula as well as the breasts. No signs of infection in the breast. Because of natures complaint I did do a cardiac workup as well.Chest x-ray shows normal chest no change. CBC CMP unremarkable. Cardiac profile negative. Troponin less than 0.012. With tenderness to palpation and increased pain with movement patient is likely extrinsic musculoskeletal pain. She was given Toradol and morphine in the emergency department and she states her pain is better at this time. Denies chance of . Patient will continue Motrin and Tylenol. She will follow-up with primary care in 1-2 days. She will return to the emergency Department if she has any worsening symptoms. - Lab Data Result diagrams: 06/19/18 19:54 06/19/18 19:54 Lab Results 06/19/18 06/19/18 06/19/18 Range/Units 19:54 19:54 19:54 WBC 10.2 (3.8-10.6) k/uL RBC 4.19 (3.80-5.40) m/uL Hgb 12.2 (11.4-16.0) gm/dL Hct 37.8 (34.0-46.0) % MCV 90.2 (80.0-100.0) fL MCH 29.1 (25.0-35.0) pg MCHC 32.3 (31.0-37.0) g/dL RDW 14.0 (11.5-15.5) % Plt Count 338 (150-450) k/uL Neutrophils % 66 % Lymphocytes % 25 % Monocytes % 4 % Eosinophils % 2 % Basophils % 0 % Neutrophils # 6.8 (1.3-7.7) k/uL Lymphocytes # 2.5 (1.0-4.8) k/uL Monocytes # 0.4 (0-1.0) k/uL Eosinophils # 0.2 (0-0.7) k/uL Basophils # 0.1 (0-0.2) k/uL PT (9.0-12.0) sec INR (<1.2) APTT (22.0-30.0) sec Sodium 138 (137-145) mmol/L Potassium 4.1 (3.5-5.1) mmol/L Chloride 103 (98-107) mmol/L Carbon Dioxide 28 (22-30) mmol/L Anion Gap 7 mmol/L BUN 21 H (7-17) mg/dL Creatinine 0.52 (0.52-1.04) mg/dL Est GFR (CKD-EPI)AfAm >90 (>60 ml/min/1.73 sqM) Est GFR (CKD-EPI)NonAf >90 (>60 ml/min/1.73 sqM) Glucose 100 H (74-99) mg/dL Calcium 9.1 (8.4-10.2) mg/dL Magnesium 1.7 (1.6-2.3) mg/dL Total Bilirubin 0.2 (0.2-1.3) mg/dL AST 36 (14-36) U/L ALT 35 (9-52) U/L Alkaline Phosphatase 92 (38-126) U/L Total Creatine Kinase 115 (30-135) U/L CK-MB (CK-2) 1.0 (0.0-2.4) ng/mL CK-MB (CK-2) Rel Index 0.9 Troponin I <0.012 (0.000-0.034) ng/mL Total Protein 6.3 (6.3-8.2) g/dL Albumin 3.9 (3.5-5.0) g/dL 06/19/18 Range/Units 19:54 WBC (3.8-10.6) k/uL RBC (3.80-5.40) m/uL Hgb (11.4-16.0) gm/dL Hct (34.0-46.0) % MCV (80.0-100.0) fL MCH (25.0-35.0) pg MCHC (31.0-37.0) g/dL RDW (11.5-15.5) % Plt Count (150-450) k/uL Neutrophils % % Lymphocytes % % Monocytes % % Eosinophils % % Basophils % % Neutrophils # (1.3-7.7) k/uL Lymphocytes # (1.0-4.8) k/uL Monocytes # (0-1.0) k/uL Eosinophils # (0-0.7) k/uL Basophils # (0-0.2) k/uL PT 10.3 (9.0-12.0) sec INR 1.0 (<1.2) APTT 22.8 (22.0-30.0) sec Sodium (137-145) mmol/L Potassium (3.5-5.1) mmol/L Chloride (98-107) mmol/L Carbon Dioxide (22-30) mmol/L Anion Gap mmol/L BUN (7-17) mg/dL Creatinine (0.52-1.04) mg/dL Est GFR (CKD-EPI)AfAm (>60 ml/min/1.73 sqM) Est GFR (CKD-EPI)NonAf (>60 ml/min/1.73 sqM) Glucose (74-99) mg/dL Calcium (8.4-10.2) mg/dL Magnesium (1.6-2.3) mg/dL Total Bilirubin (0.2-1.3) mg/dL AST (14-36) U/L ALT (9-52) U/L Alkaline Phosphatase (38-126) U/L Total Creatine Kinase (30-135) U/L CK-MB (CK-2) (0.0-2.4) ng/mL CK-MB (CK-2) Rel Index Troponin I (0.000-0.034) ng/mL Total Protein (6.3-8.2) g/dL Albumin (3.5-5.0) g/dL Disposition Clinical Impression: Muscle spasm of left shoulder area Disposition: HOME SELF-CARE Condition: Good Instructions: Muscle Spasm (ED) Additional Instructions: Please take Motrin and Tylenol for pain. Please take Flexeril but do not drive or operate machinery while taking this. Please return to the emergency department if you have any worsening symptoms. Prescriptions: Cyclobenzaprine [Flexeril] 5 mg PO TID #12 tablet Ibuprofen [Motrin] 600 mg PO Q6HR PRN #20 tab PRN Reason: Pain Is patient prescribed a controlled substance at d/c from ED?: No Referrals: Александр Uribe DO [Primary Care Provider] - 1-2 days Time of Disposition: 22:11
[2018-06-19 20:12] LABS: Basophils # (A) 0.1 k/uL (0-0.2); Basophils % (A) 0 %; Eosinophils # (A) 0.2 k/uL (0-0.7); Eosinophils % (A) 2 %; HCT 37.8 % (34.0-46.0); HGB 12.2 gm/dL (11.4-16.0); Lymphocytes # (A) 2.5 k/uL (1.0-4.8); Lymphocytes % (A) 25 %; MCH 29.1 pg (25.0-35.0); MCHC 32.3 g/dL (31.0-37.0); MCV 90.2 fL (80.0-100.0); Mean Platelet Volume 7.5; Monocytes # (A) 0.4 k/uL (0-1.0); Monocytes % (A) 4 %; Neutrophils # (A) 6.8 k/uL (1.3-7.7); Neutrophils % (A) 66 %; Platelet Count 338 k/uL (150-450); RBC 4.19 m/uL (3.80-5.40); WBC 10.2 k/uL (3.8-10.6)
[2018-06-19 20:22] LABS: Partial Thromboplastin Time 22.8 sec (22.0-30.0); Prothrombin Time 10.3 sec (9.0-12.0)
[2018-06-19 20:28] LABS: ALT 35 U/L (9-52); AST 36 U/L (14-36); Albumin 3.9 g/dL (3.5-5.0); Alkaline Phosphatase 92 U/L (38-126); Anion Gap 7 mmol/L; Blood Urea Nitrogen 21 mg/dL (7-17); Calcium 9.1 mg/dL (8.4-10.2); Carbon Dioxide 28 mmol/L (22-30); Chloride 103 mmol/L (98-107); Glucose 100 mg/dL (74-99); Magnesium 1.7 mg/dL (1.6-2.3); Potassium 4.1 mmol/L (3.5-5.1); Sodium 138 mmol/L (137-145); Total Bilirubin 0.2 mg/dL (0.2-1.3); Total Protein 6.3 g/dL (6.3-8.2)
[2018-06-19 20:34] LABS: Creatine Kinase 115 U/L (30-135)
[2018-06-19 20:46] LABS: Troponin I <0.012 ng/mL (0.000-0.034)
[2018-06-19 21:09] VITALS: PULSE 77; RESP 18
[2018-06-19] MEDS ORDERED: MORPHINE SULFATE 4 MG/ML SYRINGE IVP STA (21:12)
--- NOTE | 2018-06-19 21:43 | XR ---
EXAMINATION TYPE: XR chest 2V DATE OF EXAM: 06/19/2018 COMPARISON: 10/05/2017 HISTORY: Chest pain TECHNIQUE: Frontal and lateral views of the chest are obtained. FINDINGS: Heart and mediastinum are normal. Lungs are clear of infiltrate. Diaphragm is normal. Bony thorax is intact. IMPRESSION: Normal chest. No change.
[2018-06-19 22:20] VITALS: BP 170/81; TEMP 98
[2018-06-19 22:40] LABS: Amylase 37 U/L (30-110); Lipase 39 U/L (23-300)
== END 2018-06-19 23:10 | disposition home or self-care (01) ==
LOC: EC 16:57
DX: M62.838 Other muscle spasm (principal); M54.6 Pain in thoracic spine; N64.4 Mastodynia; F17.200 Nicotine dependence, unspecified, uncomplicated; Z88.8 Allergy status to other drugs, medicaments and biological substances
CPT/HCPCS: 36415; 93005; 80053; 82150; 82550; 82553; 83690; 83735; 84484; 85025; 85610; 85730; 71046; 99284; 96374; 96375; 96361 ×3; J2270; J1885

== ENCOUNTER 2018-11-24 14:52 | Inpatient (IN) | payer OTHER ==
[2018-11-24] MEDS ORDERED: SODIUM CHLORIDE 0.9% 1,000 ML IV STA ×2 (15:11)
[2018-11-24] MEDS ORDERED: MORPHINE SULFATE 4 MG/ML SYRINGE IV STA (15:11)
[2018-11-24] MEDS ORDERED: PANTOPRAZOLE 40 MG/10 ML VIAL IVP STA (15:11)
[2018-11-24] MEDS ORDERED: ONDANSETRON 4 MG/2 ML VIAL IVP STA (15:11)
[2018-11-24] MEDS ORDERED: IOPAMIDOL-300 CONTRAST 30 ML VIAL (ORAL USE) PO PRN (15:15)
--- NOTE | 2018-11-24 15:56 | ED ---
Abdominal Pain HPI - General Chief Complaint: Abdominal Pain Stated Complaint: Abd pain Time Seen by Provider: 11/24/18 15:00 Source: patient, RN notes reviewed, old records reviewed Mode of arrival: ambulatory Limitations: no limitations - History of Present Illness Initial Comments: Patient's 53-year-old female who presents today to complain of diffuse abdominal pain rating towards her back. She reports it feels similar to her previous pancreatitis. Patient states her symptoms going on for the past 3 days. She is concerned because she plans to go to [place] for vacation in 2 days. She states that she's had soft stools. Surgical history includes bowel resections and Pa-en-Y due to gastric ulcer disease. Patient states that she has had no fevers or chills. She denies any associated chest pain or shortness of breath. Patient relates that she had her surgery done at [facility] many years ago, but she is otherwise been doing well. - Related Data Home Medications Medication Instructions Recorded Confirmed Exbyuvl-Dtsy-Rkdh [id number] 1 tab PO Q4HR PRN 09/30/17 11/24/18 [Excedrin] Escitalopram [Lexapro] 20 mg PO DAILY 11/24/18 11/24/18 Eju-Eaek-Nlgxv Acid 1 cap PO DAILY 11/24/18 11/24/18 [-U Capsule (formulary)] traZODone HCL 150 mg PO HS 11/24/18 11/24/18 Previous Rx's Medication Instructions Recorded Pantoprazole Sodium [Protonix] 40 mg PO AC-BID #28 tablet. 10/05/17 Allergies Allergy/AdvReac Type Severity Reaction Status Date / Time prochlorperazine Allergy Unknown Verified 11/24/18 16:09 [From Compazine] prochlorperazine edisylate Allergy Unknown Verified 11/24/18 16:09 [From Compazine] prochlorperazine maleate Allergy Unknown Verified 11/24/18 16:09 [From Compazine] Review of Systems ROS Statement: Those systems with pertinent positive or pertinent negative responses have been documented in the HPI. ROS Other: All systems not noted in ROS Statement are negative. Past Medical History Past Medical History: GERD/Reflux, Hypertension Additional Past Medical History / Comment(s): Past hypotension/bradycardia thought to be medication related, bowel obstruction with surgery, PUD with surgery, gastroparesis, chronic low back pain, DJD, heart murmur as a child. History of Any Multi-Drug Resistant Organisms: None Reported Past Surgical History: Bowel Resection Additional Past Surgical History / Comment(s): pa en y gastric bypass, gastric surgery for PUD, colonoscopy. Past Anesthesia/Blood Transfusion Reactions: No Reported Reaction Past Psychological History: Anxiety, Depression Smoking Status: Current every day smoker Past Alcohol Use History: Occasional Past Drug Use History: Marijuana - Past Family History Mother Family Medical History: GERD/Reflux, Hypertension Additional Family Medical History / Comment(s): Pt. reports her mother is overall healthy and is 81 years old. family Additional Family Medical History / Comment(s): denies any history of cancer or CAD in the family General Exam - General Exam Comments Initial Comments: Patient is a 53-year-old female. Alert and oriented. No significant distress. Limitations: no limitations General appearance: alert, in no apparent distress Head exam: Present: atraumatic, normocephalic, normal inspection Eye exam: Present: normal appearance, PERRL, EOMI. Absent: scleral icterus, conjunctival injection, periorbital swelling ENT exam: Present: normal exam, mucous membranes moist Neck exam: Present: normal inspection. Absent: tenderness, meningismus, lymphadenopathy Respiratory exam: Present: normal lung sounds bilaterally. Absent: respiratory distress, wheezes, rales, rhonchi, stridor Cardiovascular Exam: Present: regular rate, normal rhythm, normal heart sounds. Absent: systolic murmur, diastolic murmur, rubs, gallop, clicks GI/Abdominal exam: Present: tenderness (diffuse tenderness, LUQ pain), normal bowel sounds, other (scar over midline of abdomen). Absent: soft, distended, guarding, rebound, rigid Extremities exam: Present: normal inspection, full ROM, normal capillary refill. Absent: tenderness, pedal edema, joint swelling, calf tenderness Back exam: Present: normal inspection Neurological exam: Present: alert, oriented X3, CN II-XII intact Psychiatric exam: Present: normal affect, normal mood Skin exam: Present: warm, dry, intact, normal color. Absent: rash Course Vital Signs 11/24/18 14:55 Temperature 97.6 F Pulse Rate 67 Respiratory 18 Rate Blood Pressure 122/57 O2 Sat by Pulse 98 Oximetry Medical Decision Making - Medical Decision Making 53-year-old female presents today with complaints of 3 days of diffuse abdominal pain worse over the upper abdomen radiate towards her back. Patient presents today with complaints of nausea and soft stools as well. Patient was given IV fluids labwork obtained. Labs do show evidence of pancreatitis. Lipase is elevated at 2000. Patient has had history of Pa-en-Y surgery due to gastric ulcer disease. CT abdomen and pelvis with oral contrast was completed. This time on the Patient for acute pancreatitis. Given a 2 L bolus , and Patient will be nothing by mouth. - Lab Data Result diagrams: 11/24/18 15:42 11/24/18 15:42 Lab Results 11/24/18 11/24/18 11/24/18 Range/Units 15:42 15:42 15:42 WBC 9.2 (3.8-10.6) k/uL RBC 4.27 (3.80-5.40) m/uL Hgb 13.3 (11.4-16.0) gm/dL Hct 39.4 (34.0-46.0) % MCV 92.2 (80.0-100.0) fL MCH 31.1 (25.0-35.0) pg MCHC 33.8 (31.0-37.0) g/dL RDW 14.0 (11.5-15.5) % Plt Count 322 (150-450) k/uL Neutrophils % 65 % Lymphocytes % 25 % Monocytes % 6 % Eosinophils % 3 % Basophils % 1 % Neutrophils # 6.0 (1.3-7.7) k/uL Lymphocytes # 2.3 (1.0-4.8) k/uL Monocytes # 0.5 (0-1.0) k/uL Eosinophils # 0.3 (0-0.7) k/uL Basophils # 0.1 (0-0.2) k/uL PT 10.7 (9.0-12.0) sec INR 1.0 (<1.2) APTT 23.9 (22.0-30.0) sec Sodium 138 (137-145) mmol/L Potassium 4.1 (3.5-5.1) mmol/L Chloride 104 (98-107) mmol/L Carbon Dioxide 25 (22-30) mmol/L Anion Gap 9 mmol/L BUN 23 H (7-17) mg/dL Creatinine 0.71 (0.52-1.04) mg/dL Est GFR (CKD-EPI)AfAm >90 (>60 ml/min/1.73 sqM) Est GFR (CKD-EPI)NonAf >90 (>60 ml/min/1.73 sqM) Glucose 97 (74-99) mg/dL Calcium 9.7 (8.4-10.2) mg/dL Total Bilirubin 1.0 (0.2-1.3) mg/dL AST 31 (14-36) U/L ALT 33 (9-52) U/L Alkaline Phosphatase 69 (38-126) U/L Total Protein 7.0 (6.3-8.2) g/dL Albumin 4.4 (3.5-5.0) g/dL Amylase 127 H (30-110) U/L Lipase 2090 H (23-300) U/L Serum Alcohol <10 mg/dL - Radiology Data Radiology results: report reviewed No definite acute processes however nonspecific pancreas and small bowel mesentery findings are noted. Incidental cavernous hemangioma suspected. Disposition Clinical Impression: Pancreatitis Disposition: ADMITTED IP TO THIS [facility] Condition: Stable Is patient prescribed a controlled substance at d/c from ED?: No Referrals: Александр Uribe DO [Primary Care Provider] - 1-2 days Time of Disposition: 17:25
[2018-11-24 16:08] LABS: Basophils # (A) 0.1 k/uL (0-0.2); Basophils % (A) 1 %; Eosinophils # (A) 0.3 k/uL (0-0.7); Eosinophils % (A) 3 %; HCT 39.4 % (34.0-46.0); HGB 13.3 gm/dL (11.4-16.0); Lymphocytes # (A) 2.3 k/uL (1.0-4.8); Lymphocytes % (A) 25 %; MCH 31.1 pg (25.0-35.0); MCHC 33.8 g/dL (31.0-37.0); MCV 92.2 fL (80.0-100.0); Mean Platelet Volume 7.6; Monocytes # (A) 0.5 k/uL (0-1.0); Monocytes % (A) 6 %; Neutrophils % (A) 65 %; Platelet Count 322 k/uL (150-450); RBC 4.27 m/uL (3.80-5.40); WBC 9.2 k/uL (3.8-10.6)
[2018-11-24 16:20] LABS: ALT 33 U/L (9-52); AST 31 U/L (14-36); Albumin 4.4 g/dL (3.5-5.0); Alcohol <10 mg/dL; Alkaline Phosphatase 69 U/L (38-126); Amylase 127 U/L (30-110); Anion Gap 9 mmol/L; Blood Urea Nitrogen 23 mg/dL (7-17); Calcium 9.7 mg/dL (8.4-10.2); Carbon Dioxide 25 mmol/L (22-30); Chloride 104 mmol/L (98-107); Glucose 97 mg/dL (74-99); Partial Thromboplastin Time 23.9 sec (22.0-30.0); Potassium 4.1 mmol/L (3.5-5.1); Prothrombin Time 10.7 sec (9.0-12.0); Sodium 138 mmol/L (137-145)
[2018-11-24 16:26] LABS: Lipase 2090 U/L (23-300)
--- NOTE | 2018-11-24 17:25 | CT ---
EXAMINATION TYPE: CT abdomen pelvis w con DATE OF EXAM: 11/24/2018 COMPARISON: 04/02/2018 there is no fracture or malalignment. Moderate marked cervical spondylosis sawyer ges are noted at all levels. 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 HISTORY: Generalized abdominal pain. CT DLP: 576.8 mGycm Automated exposure control for dose reduction was used. TECHNIQUE: Helical acquisition of images was performed from the lung bases through the pelvis. CONTRAST: Performed with Oral Contrast and with IV Contrast, patient injected with 100 mL of Isovue 370. FINDINGS: LUNG BASES: No significant abnormality is appreciated. LIVER/GB: The 1.5 cm subcapsular peripheral contrast-isodense lesion in the posterior segment of the right hepatic lobe above the level of the jason hepatis is redemonstrated, and similar to the CT of 1 12/04/2016 and 10/21/2015. There is a surrounding 4 cm zone of hyperdensity, having the appearance of a n incidental perfusion defect. In total, the finding is most consistent with incidental cavernous hem angioma, which can be proven with MRI characterization. PANCREAS: No definite abnormality, but slight indistinctness of the uncinate process is noted with a suggestion of slightly decreased attenuation. These changes are subtle and they are nonspecific, but they can correlate with a laboratory/clinical diagnosis of uncomplicated pancreatitis. SPLEEN: No significant abnormality is seen. ADRENALS: No significant abnormality is seen. KIDNEYS: No significant abnormality is seen. FREE AIR: No free air is visualized. EXTRAPERITONEAL ADENOPATHY: There are scattered small bowel mesentery small subcentimeter short axis lymph nodes, which can correlate with a clinical diagnosis of gastroenteritis, more prominent on the left of midline REPRODUCTIVE ORGANS: No significant abnormality is seen URINARY BLADDER: No significant abnormality is seen. PELVIC ADENOPATHY: None visualized. OSSEOUS STRUCTURES: No significant abnormality is seen. BOWEL: No significant abnormality is seen. OTHER: Vasculature unremarkable. IMPRESSION: 1) NO DEFINITE ACUTE PROCESS. HOWEVER, NONSPECIFIC PANCREAS AND SMALL BOWEL MESENTERY FINDINGS NOTED. 2) INCIDENTAL CAVERNOUS HEMANGIOMA SUSPECTED.
[2018-11-24] MEDS ORDERED: SODIUM CHLORIDE 0.9% 1,000 ML IV ONE (17:26)
[2018-11-24] MEDS ORDERED: ACETAMINOPHEN TAB 325 MG TAB PO PRN (17:28)
[2018-11-24] MEDS ORDERED: NALOXONE 0.4 MG/ML 1 ML VIAL IV PRN (17:28)
[2018-11-24] MEDS ORDERED: IBUPROFEN 400 MG TAB PO PRN (17:28)
[2018-11-24] MEDS ORDERED: HYDROmorphone 0.5 MG/0.5 ML SYRINGE IVP PRN (17:28)
[2018-11-24] MEDS: SODIUM CHLORIDE 0.9% 1,000 ML IV SCH (18:03)
[2018-11-24] MEDS: HYDROmorphone 1 MG/ML 1 ML SYRINGE IVP PRN (22:26)
[2018-11-24 22:52] LABS: Appearance,Urine Clear (Clear); Bilirubin,Urine Negative (Negative); Blood,Urine Negative (Negative); Color,Urine Yellow; Glucose,Urine (UA) Negative (Negative); Ketones,Urine 1+ (Negative); Leukocyte Esterase,Urine Moderate (Negative); Mucus,Urine Rare /hpf; Nitrite,Urine Negative (Negative); PH, Urine 5.5 (5.0-8.0); Protein,Urine Negative (Negative); RBC,Urine 3 /hpf (0-5); Squamous Epithelial Cell,Urine 3 /hpf (0-4); Urobilinogen,Urine <2.0 mg/dL (<2.0); WBC,Urine 4 /hpf (0-5)
[2018-11-25] MEDS ORDERED: HYDROmorphone 1 MG/ML 1 ML SYRINGE ONE (01:42)
[2018-11-25] MEDS: HYDROmorphone 1 MG/ML 1 ML SYRINGE IVP PRN ×6 (05:09→23:53)
[2018-11-25] MEDS: HEPARIN SODIUM,PORCINE 5,000 UNIT/ML 1 ML VIAL SQ SCH ×3 (05:10→22:24)
[2018-11-25] MEDS: SODIUM CHLORIDE 0.9% 1,000 ML IV SCH ×3 (05:23→22:25)
--- NOTE | 2018-11-25 07:27 | P.HPIM ---
History of Present Illness H&P Date: 11/24/18 Chief Complaint: Abdominal pain Patient is a 55-year-old female with a known history of hypertension GERD and previous history of pancreatitis and alcohol abuse came to ER with complaints of abdominal pain mainly started at the lower abdomen and and became diffuse and to the epigastric region. Pain radiating to the back. Patient felt like previous acute pancreatitis. Patient says that she has been having abdominal pain for the past 3 days. Patient did have alcohol use about one week ago. Patient does have history of gastric resection surgery due to peptic ulcer disease. Patient also does have history of ani en Y gastric bypass surgery. Patient otherwise continues smoke on daily basis. Denied any complaints of chest pain or shortness of breath. Denied any cough or sputum production. No hematuria or dysuria. No hematemesis or melena. Denied any otherwise recent illnesses. CT abdominal pelvis showed no definite acute process however nonspecific small bowel mesentery. Incidental cavernous hemangioma suspected. Lipase level 0 Review of Systems Constitutional: Patient denies any fever or chills . No generalized weakness or weight loss. Abdomen: Patient does have epigastric abdominal pain radiating to the back. No nausea vomiting. No diarrhea.. Cardiovascular: Patient denies any chest pain or short of breath no palpitations. Respiratory: patient denied any cough is from production. No shortness of breath Neurologic: Patient denied any numbness or tingling headache. Musculoskeletal: Patient denies any complaints of joint swelling or deformity. Skin: Negative Psychiatric: Negative Endocrine: No heat or cold intolerance. No recent weight gain. Genitourinary: No dysuria or hematuria. All other 14 point ROS negative except the above Past Medical History Past Medical History: GERD/Reflux, Hypertension Additional Past Medical History / Comment(s): Past hypotension/bradycardia thought to be medication related, bowel obstruction with surgery, PUD with surgery, gastroparesis, chronic low back pain, DJD, heart murmur as a child. History of Any Multi-Drug Resistant Organisms: None Reported Past Surgical History: Bowel Resection Additional Past Surgical History / Comment(s): ani en y gastric bypass, gastric surgery for PUD, colonoscopy. Past Anesthesia/Blood Transfusion Reactions: No Reported Reaction Smoking Status: Current every day smoker - Past Family History Mother Family Medical History: GERD/Reflux, Hypertension Additional Family Medical History / Comment(s): Pt. reports her mother is overall healthy and is 81 years old. Father History Unknown: Yes Additional Family Medical History / Comment(s): father was shot and killed when pt was 10 years old. family Additional Family Medical History / Comment(s): denies any history of cancer or CAD in the family Medications and Allergies Home Medications Medication Instructions Recorded Confirmed Type Aszsrxh-Bier-Lpab [id number] 1 tab PO Q4HR PRN 09/30/17 11/24/18 History [Excedrin] Pantoprazole Sodium [Protonix] 40 mg PO AC-BID #28 tablet. 10/05/17 11/24/18 Rx Escitalopram [Lexapro] 20 mg PO DAILY 11/24/18 11/24/18 History Bwu-Arkj-Bnxvq Acid 1 cap PO DAILY 11/24/18 11/24/18 History [-U Capsule (formulary)] traZODone HCL 150 mg PO HS 11/24/18 11/24/18 History Allergies Allergy/AdvReac Type Severity Reaction Status Date / Time prochlorperazine Allergy Unknown Verified 11/24/18 16:09 [From Compazine] prochlorperazine edisylate Allergy Unknown Verified 11/24/18 16:09 [From Compazine] prochlorperazine maleate Allergy Unknown Verified 11/24/18 16:09 [From Compazine] Physical Exam Vitals: Vital Signs Temp Pulse Pulse Resp BP BP Pulse Ox 11/24/18 21:00 97.7 F 64 17 137/72 98 11/24/18 18:07 67 18 131/74 97 11/24/18 14:55 97.6 F 67 18 122/57 98 Intake and Output 11/24/18 11/24/18 11/24/18 06:59 14:59 22:59 Intake Total 400 Balance 400 Intake: Intake, IV Titration 400 Amount Sodium Chloride 0.9% 1, 400 000 ml @ 100 mls/hr IV . Q10H [facility] Rx#:[id number] Other: Voiding Method Toilet # Voids 1 Weight 63.503 kg PHYSICAL EXAMINATION: Patient is lying in the bed comfortably, no acute distress, awake alert and oriented.. HEENT: Normocephalic. Neck is supple. Pupils reactive. Nostrils clear. Oral cavity is moist. Ears reveal no drainage. Neck reveals no JVD, carotid bruits, or thyromegaly. CHEST EXAMINATION: Trachea is central. Symmetrical expansion. Lung young clear to auscultation and percussion. CARDIAC: Normal S1, S2 with no gallops. No murmurs ABDOMEN: Soft. Bowel sounds normal. Patient does have midline is scar. Epigastric abdominal tenderness. No guarding no rigidity. No organomegaly. No abdominal bruits. Extremities: reveal no edema. No clubbing or cyanosis Neurologically awake, alert, oriented x3 with well-coordinated movements. No focal deficits noted Skin: No rash or skin lesions. Psychiatric: Coperative. Nonsuicidal Musculoskeletal: No joint swelling or deformity. Normal range of motion. Results CBC & Chem 7: 11/24/18 15:42 11/24/18 15:42 Labs: Abnormal Lab Results - Last 24 Hours (Table) 11/24/18 11/24/18 Range/Units 15:42 22:33 BUN 23 H (7-17) mg/dL Amylase 127 H (30-110) U/L Lipase 2090 H (23-300) U/L Urine Ketones 1+ H (Negative) Ur Leukocyte Esterase Moderate H (Negative) Urine Mucus Rare H (None) /hpf Thrombosis Risk Factor Assmnt - DVT/VTE Prophylaxis DVT/VTE Prophylaxis: Pharmacologic Prophylaxis ordered - Choose All That Apply Each Factor Represents 1 point: Age 41-60 years Other Risk Factors: No Thrombosis Risk Factor Assessment Total Risk Factor Score: 1 Thrombosis Risk Factor Assessment Level: Low Risk Assessment and Plan Assessment: Acute recurrent pancreatitis EtOH related. Previous history of pancreatitis. Alcohol abuse last use 1 week ago History of gastric resection due to peptic ulcer disease History of ani en y gastric bypass GERD Hypertension Gastroparesis Chronic low back pain Degenerate joint disease Nicotine addiction DVT prophylaxis Plan: patient will be continued on IV fluids and pain management with Dilaudid. Continue PPI IV. Follow up closely and further recommendations based on the clinical course. Continue the home medications. Smoking cessation and alcohol abuse abuse has been counseled extensively. Time with Patient: Greater than 30
[2018-11-25] MEDS: PANTOPRAZOLE 40 MG/10 ML VIAL IV SCH (08:12)
[2018-11-25 17:33] LABS: ALT 29 U/L (9-52); AST 26 U/L (14-36); Albumin 3.5 g/dL (3.5-5.0); Alkaline Phosphatase 62 U/L (38-126); Amylase 40 U/L (30-110); Anion Gap 11 mmol/L; Blood Urea Nitrogen 16 mg/dL (7-17); Calcium 8.4 mg/dL (8.4-10.2); Carbon Dioxide 17 mmol/L (22-30); Chloride 111 mmol/L (98-107); Glucose 60 mg/dL (74-99); Lipase 395 U/L (23-300); Potassium 4.1 mmol/L (3.5-5.1); Sodium 139 mmol/L (137-145); Total Bilirubin 0.6 mg/dL (0.2-1.3); Total Protein 5.9 g/dL (6.3-8.2)
[2018-11-25] MEDS: ONDANSETRON 4 MG/2 ML VIAL IVP PRN (19:07)
[2018-11-25 19:20] LABS: Glucose,Whole Blood 95 mg/dL (75-99)
--- NOTE | 2018-11-25 23:11 | P.PN ---
Subjective Progress Note Date: 11/25/18 Principal diagnosis: Acute pancreatitis Patient is a 55-year-old female with a known history of hypertension GERD and previous history of pancreatitis and alcohol abuse came to ER with complaints of abdominal pain mainly started at the lower abdomen and and became diffuse and to the epigastric region. Pain radiating to the back. Patient felt like previous acute pancreatitis. Patient says that she has been having abdominal pain for the past 3 days. Patient did have alcohol use about one week ago. Patient does have history of gastric resection surgery due to peptic ulcer disease. Patient also does have history of ani en Y gastric bypass surgery. Patient otherwise continues smoke on daily basis. Denied any complaints of chest pain or shortness of breath. Denied any cough or sputum production. No hematuria or dysuria. No hematemesis or melena. Denied any otherwise recent illnesses. CT abdominal pelvis showed no definite acute process however nonspecific small bowel mesentery. Incidental cavernous hemangioma suspected. Lipase level 0 12/05/2018 Patient says that her abdominal pain is better today. Continued IV fluids and pain management. No complains of nausea vomiting or diarrhea. Patient started on liquid diet and advance as tolerated. No fever or chills. Current medications reviewed. Objective - Vital Signs Vital signs: Vital Signs Temp 98.3 F 11/25/18 20:08 Pulse 70 11/25/18 20:42 Resp 14 11/25/18 20:42 BP 130/60 11/25/18 20:08 Pulse Ox 96 11/25/18 20:08 Intake & Output 11/25/18 11/25/18 11/26/18 06:59 18:59 06:59 Intake Total 1200 800 350 Balance 1200 800 350 Intake: Intake, IV Titration 1200 800 Amount Sodium Chloride 0.9% 1, 1200 800 000 ml @ 100 mls/hr IV . Q10H [facility] Rx#:[id number] Oral 0 350 Other: Voiding Method Toilet Toilet # Voids 3 1 1 - Exam PHYSICAL EXAMINATION: Patient is lying in the bed comfortably, no acute distress, awake alert and oriented.. HEENT: Normocephalic. Neck is supple. Pupils reactive. Nostrils clear. Oral cavity is moist. Ears reveal no drainage. Neck reveals no JVD, carotid bruits, or thyromegaly. CHEST EXAMINATION: Trachea is central. Symmetrical expansion. Lung young clear to auscultation and percussion. CARDIAC: Normal S1, S2 with no gallops. No murmurs ABDOMEN: Soft. Epigastric tenderness. Bowel sounds normal. No organomegaly. No abdominal bruits. Extremities: reveal no edema. No clubbing or cyanosis Neurologically awake, alert, oriented x3 with well-coordinated movements. No focal deficits noted Skin: No rash or skin lesions. Psychiatric: Coperative. Nonsuicidal Musculoskeletal: No joint swelling or deformity. Normal range of motion. - Labs CBC & Chem 7: 11/24/18 15:42 11/25/18 17:03 Labs: Abnormal Lab Results - Last 24 Hours (Table) 11/24/18 11/25/18 Range/Units 22:33 17:03 Chloride 111 H (98-107) mmol/L Carbon Dioxide 17 L (22-30) mmol/L Glucose 60 L (74-99) mg/dL Total Protein 5.9 L (6.3-8.2) g/dL Lipase 395 H (23-300) U/L Ur Specific Raccoon 1.050 H (1.001-1.035) Urine Ketones 1+ H (Negative) Ur Leukocyte Esterase Moderate H (Negative) Urine Mucus Rare H (None) /hpf Assessment and Plan Assessment: Acute recurrent pancreatitis EtOH related. Previous history of pancreatitis. Alcohol abuse last use 1 week ago History of gastric resection due to peptic ulcer disease History of ani en y gastric bypass GERD Hypertension Gastroparesis Chronic low back pain Degenerate joint disease Nicotine addiction DVT prophylaxis Plan: patient will be continued on IV fluids and pain management with Dilaudid. Continue PPI IV. Follow up closely and further recommendations based on the clinical course. Continue the home medications. Smoking cessation and alcohol abuse abuse has been counseled extensively.
[2018-11-26] MEDS: HYDROmorphone 1 MG/ML 1 ML SYRINGE IVP PRN ×6 (03:34→21:41)
[2018-11-26] MEDS: HEPARIN SODIUM,PORCINE 5,000 UNIT/ML 1 ML VIAL SQ SCH ×3 (06:08→21:41)
[2018-11-26] MEDS: SODIUM CHLORIDE 0.9% 1,000 ML IV SCH ×2 (06:09→20:03)
[2018-11-26 06:59] LABS: Glucose,Whole Blood 73 mg/dL (75-99)
[2018-11-26] MEDS: PANTOPRAZOLE 40 MG/10 ML VIAL IV SCH (07:26)
[2018-11-26 09:46] LABS: ALT 29 U/L (9-52); AST 37 U/L (14-36); Albumin 3.1 g/dL (3.5-5.0); Alkaline Phosphatase 64 U/L (38-126); Anion Gap 8 mmol/L; Blood Urea Nitrogen 9 mg/dL (7-17); Carbon Dioxide 20 mmol/L (22-30); Chloride 111 mmol/L (98-107); Glucose 142 mg/dL (74-99); Potassium 3.6 mmol/L (3.5-5.1); Sodium 139 mmol/L (137-145); Total Bilirubin 0.4 mg/dL (0.2-1.3); Total Protein 5.3 g/dL (6.3-8.2)
[2018-11-26 11:16] LABS: Glucose,Whole Blood 86 mg/dL (75-99)
[2018-11-26 11:34] LABS: Amylase <30 U/L (30-110); Lipase 257 U/L (23-300)
[2018-11-26] MEDS: ONDANSETRON 4 MG/2 ML VIAL IVP PRN (18:34)
--- NOTE | 2018-11-26 23:18 | P.PN ---
Subjective Progress Note Date: 11/26/18 Principal diagnosis: Acute pancreatitis Patient is a 55-year-old female with a known history of hypertension GERD and previous history of pancreatitis and alcohol abuse came to ER with complaints of abdominal pain mainly started at the lower abdomen and and became diffuse and to the epigastric region. Pain radiating to the back. Patient felt like previous acute pancreatitis. Patient says that she has been having abdominal pain for the past 3 days. Patient did have alcohol use about one week ago. Patient does have history of gastric resection surgery due to peptic ulcer disease. Patient also does have history of ani en Y gastric bypass surgery. Patient otherwise continues smoke on daily basis. Denied any complaints of chest pain or shortness of breath. Denied any cough or sputum production. No hematuria or dysuria. No hematemesis or melena. Denied any otherwise recent illnesses. CT abdominal pelvis showed no definite acute process however nonspecific small bowel mesentery. Incidental cavernous hemangioma suspected. Lipase level 208911/25/2018 Patient says that her abdominal pain is better today. Continued IV fluids and pain management. No complains of nausea vomiting or diarrhea. Patient started on liquid diet and advance as tolerated. No fever or chills. 11/26/2018 Abdominal pain is getting better as per patient. Patient was started on liquid diet and advance as tolerated. Continue the pain management. No fever no chills. No nausea vomiting. No diarrhea. Denied any other overnight issues. Current medications reviewed. Objective - Vital Signs Vital signs: Vital Signs Temp 97.7 F 11/26/18 20:25 Pulse 52 L 11/26/18 20:25 Resp 16 11/26/18 20:25 BP 179/82 11/26/18 20:25 Pulse Ox 99 11/26/18 20:25 Intake & Output 11/26/18 11/26/18 11/27/18 06:59 18:59 06:59 Intake Total 1750 1100 Balance 1750 1100 Intake: Intake, IV Titration 900 500 Amount Sodium Chloride 0.9% 1, 900 500 000 ml @ 100 mls/hr IV . Q10H [facility] Rx#:[id number] Oral 850 600 Other: Voiding Method Toilet # Voids 2 3 - Exam PHYSICAL EXAMINATION: Patient is lying in the bed comfortably, no acute distress, awake alert and oriented.. HEENT: Normocephalic. Neck is supple. Pupils reactive. Nostrils clear. Oral cavity is moist. Ears reveal no drainage. Neck reveals no JVD, carotid bruits, or thyromegaly. CHEST EXAMINATION: Trachea is central. Symmetrical expansion. Lung young clear to auscultation and percussion. CARDIAC: Normal S1, S2 with no gallops. No murmurs ABDOMEN: Soft. Epigastric tenderness. Bowel sounds normal. No organomegaly. No abdominal bruits. Extremities: reveal no edema. No clubbing or cyanosis Neurologically awake, alert, oriented x3 with well-coordinated movements. No focal deficits noted Skin: No rash or skin lesions. Psychiatric: Coperative. Nonsuicidal Musculoskeletal: No joint swelling or deformity. Normal range of motion. - Labs CBC & Chem 7: 11/24/18 15:42 11/26/18 08:54 Labs: Abnormal Lab Results - Last 24 Hours (Table) 11/26/18 11/26/18 11/26/18 Range/Units 06:58 08:54 08:54 Chloride 111 H (98-107) mmol/L Carbon Dioxide 20 L (22-30) mmol/L Glucose 142 H (74-99) mg/dL POC Glucose (mg/dL) 73 L (75-99) mg/dL Calcium 8.0 L (8.4-10.2) mg/dL AST 37 H (14-36) U/L Total Protein 5.3 L (6.3-8.2) g/dL Albumin 3.1 L (3.5-5.0) g/dL Amylase <30 L (30-110) U/L Assessment and Plan Assessment: Acute recurrent pancreatitis EtOH related. Previous history of pancreatitis. Alcohol abuse last use 1 week ago History of gastric resection due to peptic ulcer disease History of ani en y gastric bypass GERD Hypertension Gastroparesis Chronic low back pain Degenerate joint disease Nicotine addiction DVT prophylaxis Plan: patient will be continued on IV fluids and pain management with Dilaudid. Continue PPI IV. Follow up closely and further recommendations based on the clinical course. Continue the home medications. Smoking cessation and alcohol abuse abuse has been counseled extensively.
[2018-11-27] MEDS: HYDROmorphone 1 MG/ML 1 ML SYRINGE IVP PRN ×3 (01:15→09:25)
[2018-11-27] MEDS: HEPARIN SODIUM,PORCINE 5,000 UNIT/ML 1 ML VIAL SQ SCH (05:12)
[2018-11-27] MEDS: SODIUM CHLORIDE 0.9% 1,000 ML IV SCH (05:16)
[2018-11-27] MEDS ORDERED: PANTOPRAZOLE 40 MG TABLET PO SCH (07:30)
[2018-11-27 08:19] LABS: Basophils % (A) 1 %; Eosinophils # (A) 0.2 k/uL (0-0.7); Eosinophils % (A) 3 %; HCT 38.4 % (34.0-46.0); HGB 12.3 gm/dL (11.4-16.0); Hypochromasia Slight; Lymphocytes # (A) 1.7 k/uL (1.0-4.8); Lymphocytes % (A) 30 %; MCH 30.7 pg (25.0-35.0); MCHC 31.9 g/dL (31.0-37.0); MCV 96.3 fL (80.0-100.0); Mean Platelet Volume 7.8; Monocytes # (A) 0.4 k/uL (0-1.0); Monocytes % (A) 6 %; Neutrophils # (A) 3.3 k/uL (1.3-7.7); Neutrophils % (A) 58 %; Platelet Count 260 k/uL (150-450); RBC 3.99 m/uL (3.80-5.40); RDW 13.5 % (11.5-15.5); WBC 5.7 k/uL (3.8-10.6)
[2018-11-27 08:24] LABS: Anion Gap 13 mmol/L; Blood Urea Nitrogen 4 mg/dL (7-17); Calcium 8.7 mg/dL (8.4-10.2); Carbon Dioxide 20 mmol/L (22-30); Chloride 107 mmol/L (98-107); Glucose 69 mg/dL (74-99); Sodium 140 mmol/L (137-145)
[2018-11-27 11:13] VITALS: BMI 24.0
[2018-11-27 11:27] VITALS: BP 152/64; PULSE 56; RESP 16; TEMP 98.3
--- NOTE | 2018-11-27 22:13 | P.DS ---
Providers Date of admission: 11/24/18 17:15 Expected date of discharge: 11/27/18 Attending physician: Cristobal Hawkins Primary care physician: Александр Uribe [place] [facility] Course: Discharge diagnosis Acute recurrent pancreatitis EtOH related. Previous history of pancreatitis. Alcohol abuse last use 1 week ago History of gastric resection due to peptic ulcer disease History of ani en y gastric bypass GERD Hypertension Gastroparesis Chronic low back pain Degenerate joint disease Nicotine addiction DVT prophylaxis Hospital course Patient is a 55-year-old female with a known history of hypertension GERD and previous history of pancreatitis and alcohol abuse came to ER with complaints of abdominal pain mainly started at the lower abdomen and and became diffuse and to the epigastric region. Pain radiating to the back. Patient felt like previous acute pancreatitis. Patient says that she has been having abdominal pain for the past 3 days. Patient did have alcohol use about one week ago. Patient does have history of gastric resection surgery due to peptic ulcer disease. Patient also does have history of ani en Y gastric bypass surgery. Patient otherwise continues smoke on daily basis. Denied any complaints of chest pain or shortness of breath. Denied any cough or sputum production. No hematuria or dysuria. No hematemesis or melena. Denied any otherwise recent illnesses. CT abdominal pelvis showed no definite acute process however nonspecific small bowel mesentery. Incidental cavernous hemangioma suspected. Lipase level 208911/25/2018 Patient says that her abdominal pain is better today. Continued IV fluids and pain management. No complains of nausea vomiting or diarrhea. Patient started on liquid diet and advance as tolerated. No fever or chills. 11/26/2018 Abdominal pain is getting better as per patient. Patient was started on liquid diet and advance as tolerated. Continue the pain management. No fever no chills. No nausea vomiting. No diarrhea. Denied any other overnight issues. 11/27/2018 Patient says that her abdominal pain is better today. No nausea vomiting. Tolerating oral diet and advanced. Patient is stable to be discharged home. Counseled extensively for alcohol abuse. PHYSICAL EXAMINATION: Patient is lying in the bed comfortably, no acute distress, awake alert and oriented.. HEENT: Normocephalic. Neck is supple. Pupils reactive. Nostrils clear. Oral cavity is moist. Ears reveal no drainage. Neck reveals no JVD, carotid bruits, or thyromegaly. CHEST EXAMINATION: Trachea is central. Symmetrical expansion. Lung young clear to auscultation and percussion. CARDIAC: Normal S1, S2 with no gallops. No murmurs ABDOMEN: Soft. Bowel sounds normal. No organomegaly. No abdominal bruits. Extremities: reveal no edema. No clubbing or cyanosis Neurologically awake, alert, oriented x3 with well-coordinated movements. No focal deficits noted Skin: No rash or skin lesions. Psychiatric: Coperative. Nonsuicidal Musculoskeletal: No joint swelling or deformity. Normal range of motion. Vital Signs - 24 hr 11/27/18 11/27/18 05:00 11:26 Temperature 97.7 F 98.3 F Pulse Rate [ 57 L 56 L Pulse Oximetery ] Respiratory 18 16 Rate Blood Pressure 144/74 152/64 [Right Arm] O2 Sat by Pulse 98 99 Oximetry Patient Condition at Discharge: Stable Plan - Discharge Summary Discharge Rx Participant: No New Discharge Prescriptions: Continue [id number] [Excedrin] 1 tab PO Q4HR PRN PRN Reason: Migraine Headache Pantoprazole Sodium [Protonix] 40 mg PO AC-BID #28 tablet. traZODone HCL 150 mg PO HS Escitalopram [Lexapro] 20 mg PO DAILY [id number]-Vwbbg Acid [-U Capsule (formulary)] 1 cap PO DAILY Discharge Medication List [id number] [id number] [Excedrin] 1 tab PO Q4HR PRN 09/30/17 [History] Pantoprazole Sodium [Protonix] 40 mg PO AC-BID #28 tablet. 10/05/17 [Rx] Escitalopram [Lexapro] 20 mg PO DAILY 11/24/18 [History] Flj-Dhph-Ineen Acid [-U Capsule (formulary)] 1 cap PO DAILY 07/05 [History] traZODone HCL 150 mg PO HS 11/24/18 [History] Follow up Appointment(s)/Referral(s): Александр Uribe DO [Primary Care Provider] - 12/01/18 11:00 am (Appt. maricruz Frias NP ) Patient Instructions/Handouts: How to Stop Smoking (DC), Pancreatitis (DC), At- Risk Alcohol Use (DC) Activity/Diet/Wound Care/Special Instructions: Increase diet as tolerated. AVOID ALCOHOL Discharge Disposition: HOME SELF-CARE
== END 2018-11-27 14:00 | disposition home or self-care (01) | DRG 440 ==
LOC: EC 14:52 → 4MS4W 17:15 → 3NMEDONC 17:46
PROVIDERS: ADMIT Internal Medicine; ATTEND Internal Medicine
DX: K85.20 Alcohol induced acute pancreatitis without necrosis or infection (principal); K31.84 Gastroparesis; K86.0 Alcohol-induced chronic pancreatitis; K21.9 Gastro-esophageal reflux disease without esophagitis; F10.10 Alcohol abuse, uncomplicated; D18.09 Hemangioma of other sites; I10 Essential (primary) hypertension; G89.29 Other chronic pain; M54.5 Low back pain; F32.9 Major depressive disorder, single episode, unspecified; F41.9 Anxiety disorder, unspecified; M19.90 Unspecified osteoarthritis, unspecified site; Y90.0 Blood alcohol level of less than 20 mg/100 ml; F17.200 Nicotine dependence, unspecified, uncomplicated; Z71.41 Alcohol abuse counseling and surveillance of alcoholic; Z71.6 Tobacco abuse counseling; Z79.82 Long term (current) use of aspirin; Z79.899 Other long term (current) drug therapy; Z87.11 Personal history of peptic ulcer disease; Z90.49 Acquired absence of other specified parts of digestive tract; Z98.84 Bariatric surgery status; Z88.8 Allergy status to other drugs, medicaments and biological substances; Z83.79 Family history of other diseases of the digestive system; Z82.49 Family history of ischemic heart disease and other diseases of the circulatory system
CPT/HCPCS: 36415; 74177; 80048; 80053; 80320; 81001; 82150; 83690; 85025; 85610; 85730; 96361; 96374; 96375; 99285

== ENCOUNTER 2018-12-25 19:45 | Emergency (ER) | payer OTHER ==
[2018-12-25] MEDS ORDERED: ONDANSETRON 4 MG/2 ML VIAL IVP STA (21:14)
[2018-12-25] MEDS ORDERED: SODIUM CHLORIDE 0.9% 1,000 ML IV STA (21:14)
[2018-12-25] MEDS ORDERED: MORPHINE SULFATE 4 MG/ML SYRINGE IV STA (21:14)
--- NOTE | 2018-12-25 21:24 | ED ---
Abdominal Pain HPI - General Chief Complaint: Abdominal Pain Stated Complaint: Abd Pain Time Seen by Provider: 12/25/18 20:42 Source: patient Mode of arrival: ambulatory Limitations: no limitations - History of Present Illness Initial Comments: 53-year-old female patient past medical history significant for pancreatitis with last episode being 3 weeks ago presents to the emergency department today for evaluation of midepigastric and left upper quadrant abdominal pain. She describes the pain as an intense aching cramping pain that radiates through to her back. Patient states pain started last evening. Patient states she's been unable to eat or drink today. States she is having significant nausea. She denies any vomiting. Denies any constipation or diarrhea. Denies any hematuria , dysuria, urinary frequency, urinary urgency. Patient states the pain feels similar to when she's had previous episodes of pancreatitis. Patient denies any recent rash, fever, chills, shortness breath, chest pain, numbness, tingling, dizziness, weakness, headache, visual changes, or any other complaints. - Related Data Home Medications Medication Instructions Recorded Confirmed [id number] [id number] 1 tab PO Q4HR PRN 09/30/17 12/25/18 [Excedrin] Escitalopram [Lexapro] 20 mg PO DAILY 11/24/18 12/25/18 traZODone HCL 150 mg PO HS 11/24/18 12/25/18 Pantoprazole Sodium [Protonix] 40 mg PO DAILY 12/25/18 12/25/18 Previous Rx's Medication Instructions Recorded Cephalexin [Keflex] 500 mg PO Q6H #28 cap 12/25/18 Allergies Allergy/AdvReac Type Severity Reaction Status Date / Time prochlorperazine AdvReac Unknown Verified 12/25/18 20:47 [From Compazine] prochlorperazine edisylate AdvReac Unknown Verified 12/25/18 20:47 [From Compazine] prochlorperazine maleate AdvReac Unknown Verified 12/25/18 20:47 [From Compazine] Review of Systems ROS Statement: Those systems with pertinent positive or pertinent negative responses have been documented in the HPI. ROS Other: All systems not noted in ROS Statement are negative. Past Medical History Past Medical History: GERD/Reflux, Hypertension Additional Past Medical History / Comment(s): Past hypotension/bradycardia thought to be medication related, bowel obstruction with surgery, PUD with surgery, gastroparesis, chronic low back pain, DJD, heart murmur as a child. History of Any Multi-Drug Resistant Organisms: None Reported Past Surgical History: Bowel Resection Additional Past Surgical History / Comment(s): ani en y gastric bypass, gastric surgery for PUD, colonoscopy. Past Anesthesia/Blood Transfusion Reactions: No Reported Reaction Past Psychological History: Anxiety, Depression Smoking Status: Current every day smoker - Past Family History Mother Family Medical History: GERD/Reflux, Hypertension Additional Family Medical History / Comment(s): Pt. reports her mother is overall healthy and is 81 years old. Father History Unknown: Yes Additional Family Medical History / Comment(s): father was shot and killed when pt was 10 years old. family Additional Family Medical History / Comment(s): denies any history of cancer or CAD in the family General Exam Limitations: no limitations General appearance: alert, in no apparent distress, other (Physical well- developed, well-nourished adult female patient in no acute distress. Vital signs upon presentation are temperature 98.0F, pulse 53, respirations 20, blood pressure 176/93, pulse ox 95% on room air.) Eye exam: Present: normal appearance, PERRL, EOMI. Absent: scleral icterus, conjunctival injection, periorbital swelling Respiratory exam: Present: normal lung sounds bilaterally. Absent: respiratory distress, wheezes, rales, rhonchi, stridor Cardiovascular Exam: Present: regular rate, normal rhythm, normal heart sounds. Absent: systolic murmur, diastolic murmur, rubs, gallop, clicks GI/Abdominal exam: Present: soft, tenderness (Midepigastric and left upper quadrant tenderness), normal bowel sounds. Absent: distended, guarding, rebound , rigid Back exam: Present: normal inspection. Absent: CVA tenderness (R), CVA tenderness (L) Neurological exam: Present: alert, oriented X3, CN II-XII intact Psychiatric exam: Present: normal affect, normal mood Skin exam: Present: warm, dry, intact, normal color. Absent: rash Course Vital Signs 12/25/18 12/25/18 19:51 23:50 Temperature 98.0 F 97.8 F Pulse Rate 53 L 52 L Respiratory 20 18 Rate Blood Pressure 176/93 152/74 O2 Sat by Pulse 95 97 Oximetry Medical Decision Making - Medical Decision Making 53-year-old female patient presents to the emergency department today for evaluation of upper abdominal pain and suprapubic pain and cramping. Physical examination did reveal some midepigastric tenderness and some suprapubic tenderness. Labs reviewed and were unremarkable other than evidence of a urinary tract infection. Patient no CVA tenderness. Patient did have CT abdomen and pelvis about one month ago, we will not repeat this test today. Patient be treated for urinary tract infection. She'll be given a starter pack of Zofran. She is instructed to follow-up with her primary care physician for recheck tomorrow. Return parameters were discussed in detail. She verbalizes understanding and agrees with this plan. - Lab Data Result diagrams: 12/25/18 21:30 12/25/18 21:30 Lab Results 12/25/18 12/25/18 12/25/18 Range/Units 21:30 21:30 21:30 WBC 8.0 (3.8-10.6) k/uL RBC 4.40 (3.80-5.40) m/uL Hgb 13.1 (11.4-16.0) gm/dL Hct 41.0 (34.0-46.0) % MCV 93.0 (80.0-100.0) fL MCH 29.7 (25.0-35.0) pg MCHC 32.0 (31.0-37.0) g/dL RDW 13.5 (11.5-15.5) % Plt Count 264 (150-450) k/uL Neutrophils % 51 % Lymphocytes % 38 % Monocytes % 5 % Eosinophils % 3 % Basophils % 1 % Neutrophils # 4.1 (1.3-7.7) k/uL Lymphocytes # 3.0 (1.0-4.8) k/uL Monocytes # 0.4 (0-1.0) k/uL Eosinophils # 0.2 (0-0.7) k/uL Basophils # 0.1 (0-0.2) k/uL Sodium 138 (137-145) mmol/L Potassium 4.0 (3.5-5.1) mmol/L Chloride 106 (98-107) mmol/L Carbon Dioxide 25 (22-30) mmol/L Anion Gap 7 mmol/L BUN 18 H (7-17) mg/dL Creatinine 0.62 (0.52-1.04) mg/dL Est GFR (CKD-EPI)AfAm >90 (>60 ml/min/1.73 sqM) Est GFR (CKD-EPI)NonAf >90 (>60 ml/min/1.73 sqM) Glucose 134 H (74-99) mg/dL Calcium 9.3 (8.4-10.2) mg/dL Total Bilirubin 0.5 (0.2-1.3) mg/dL AST 43 H (14-36) U/L ALT 46 (9-52) U/L Alkaline Phosphatase 71 (38-126) U/L Troponin I (0.000-0.034) ng/mL Total Protein 6.9 (6.3-8.2) g/dL Albumin 4.3 (3.5-5.0) g/dL Amylase 31 (30-110) U/L Lipase 43 (23-300) U/L Urine Color Yellow Urine Appearance Clear (Clear) Urine pH 6.5 (5.0-8.0) Ur Specific Patterson 1.022 (1.001-1.035) Urine Protein Trace H (Negative) Urine Glucose (UA) Negative (Negative) Urine Ketones Negative (Negative) Urine Blood Negative (Negative) Urine Nitrite Negative (Negative) Urine Bilirubin Negative (Negative) Urine Urobilinogen <2.0 (<2.0) mg/dL Ur Leukocyte Esterase Moderate H (Negative) Urine RBC 1 (0-5) /hpf Urine WBC 49 H (0-5) /hpf Ur Squamous Epith Cells 20 H (0-4) /hpf Amorphous Sediment Rare H (None) /hpf Urine Bacteria Rare H (None) /hpf Hyaline Casts 4 H (0-2) /lpf Urine Mucus Many H (None) /hpf 12/25/18 Range/Units 21:30 WBC (3.8-10.6) k/uL RBC (3.80-5.40) m/uL Hgb (11.4-16.0) gm/dL Hct (34.0-46.0) % MCV (80.0-100.0) fL MCH (25.0-35.0) pg MCHC (31.0-37.0) g/dL RDW (11.5-15.5) % Plt Count (150-450) k/uL Neutrophils % % Lymphocytes % % Monocytes % % Eosinophils % % Basophils % % Neutrophils # (1.3-7.7) k/uL Lymphocytes # (1.0-4.8) k/uL Monocytes # (0-1.0) k/uL Eosinophils # (0-0.7) k/uL Basophils # (0-0.2) k/uL Sodium (137-145) mmol/L Potassium (3.5-5.1) mmol/L Chloride (98-107) mmol/L Carbon Dioxide (22-30) mmol/L Anion Gap mmol/L BUN (7-17) mg/dL Creatinine (0.52-1.04) mg/dL Est GFR (CKD-EPI)AfAm (>60 ml/min/1.73 sqM) Est GFR (CKD-EPI)NonAf (>60 ml/min/1.73 sqM) Glucose (74-99) mg/dL Calcium (8.4-10.2) mg/dL Total Bilirubin (0.2-1.3) mg/dL AST (14-36) U/L ALT (9-52) U/L Alkaline Phosphatase (38-126) U/L Troponin I <0.012 (0.000-0.034) ng/mL Total Protein (6.3-8.2) g/dL Albumin (3.5-5.0) g/dL Amylase (30-110) U/L Lipase (23-300) U/L Urine Color Urine Appearance (Clear) Urine pH (5.0-8.0) Ur Specific Patterson (1.001-1.035) Urine Protein (Negative) Urine Glucose (UA) (Negative) Urine Ketones (Negative) Urine Blood (Negative) Urine Nitrite (Negative) Urine Bilirubin (Negative) Urine Urobilinogen (<2.0) mg/dL Ur Leukocyte Esterase (Negative) Urine RBC (0-5) /hpf Urine WBC (0-5) /hpf Ur Squamous Epith Cells (0-4) /hpf Amorphous Sediment (None) /hpf Urine Bacteria (None) /hpf Hyaline Casts (0-2) /lpf Urine Mucus (None) /hpf - EKG Data -: EKG Interpreted by Me EKG Comments: EKG obtained at 2146 shows sinus bradycardia with a ventricular rate of 54, NV interval 140, QRS duration 82, QTc 466, QTc 441. No evidence of ST elevation or depression. Disposition Clinical Impression: Abdominal pain, Urinary tract infection Disposition: HOME SELF-CARE Condition: Good Instructions (If sedation given, give patient instructions): Urinary Tract Infection in Women (ED), Abdominal Pain (ED) Additional Instructions: Take antibiotic as directed. Follow-up through primary care physician for recheck in 1-2 days. Return to the emergency department immediately for any new , worsening, or concerning symptoms. Prescriptions: Cephalexin [Keflex] 500 mg PO Q6H #28 cap Is patient prescribed a controlled substance at d/c from ED?: No Referrals: Александр Uribe DO [Primary Care Provider] - 1-2 days Time of Disposition: 23:36
[2018-12-25 22:04] LABS: Amorphous Sediment,Urine Rare /hpf; Appearance,Urine Clear (Clear); Bacteria,Urine Rare /hpf; Bilirubin,Urine Negative (Negative); Blood,Urine Negative (Negative); Color,Urine Yellow; Glucose,Urine (UA) Negative (Negative); Hyaline Casts,Urine 4 /lpf (0-2); Ketones,Urine Negative (Negative); Leukocyte Esterase,Urine Moderate (Negative); Mucus,Urine Many /hpf; Nitrite,Urine Negative (Negative); PH, Urine 6.5 (5.0-8.0); Protein,Urine Trace (Negative); RBC,Urine 1 /hpf (0-5); Specific Gravity,Urine 1.022 (1.001-1.035); Squamous Epithelial Cell,Urine 20 /hpf (0-4); Urobilinogen,Urine <2.0 mg/dL (<2.0); WBC,Urine 49 /hpf (0-5)
[2018-12-25 22:12] LABS: Basophils # (A) 0.1 k/uL (0-0.2); Basophils % (A) 1 %; Eosinophils # (A) 0.2 k/uL (0-0.7); Eosinophils % (A) 3 %; HGB 13.1 gm/dL (11.4-16.0); Lymphocytes % (A) 38 %; MCH 29.7 pg (25.0-35.0); Monocytes # (A) 0.4 k/uL (0-1.0); Monocytes % (A) 5 %; Neutrophils # (A) 4.1 k/uL (1.3-7.7); Neutrophils % (A) 51 %; Platelet Count 264 k/uL (150-450); RDW 13.5 % (11.5-15.5)
[2018-12-25 22:24] LABS: ALT 46 U/L (9-52); AST 43 U/L (14-36); Albumin 4.3 g/dL (3.5-5.0); Alkaline Phosphatase 71 U/L (38-126); Amylase 31 U/L (30-110); Anion Gap 7 mmol/L; Blood Urea Nitrogen 18 mg/dL (7-17); Calcium 9.3 mg/dL (8.4-10.2); Carbon Dioxide 25 mmol/L (22-30); Chloride 106 mmol/L (98-107); Glucose 134 mg/dL (74-99); Lipase 43 U/L (23-300); Sodium 138 mmol/L (137-145); Total Bilirubin 0.5 mg/dL (0.2-1.3); Total Protein 6.9 g/dL (6.3-8.2)
[2018-12-25] MEDS ORDERED: CEPHALEXIN 500MG STARTER PACK 4 CAP BTL PO STA (23:33)
[2018-12-25] MEDS ORDERED: ONDANSETRON 4 MG ODT STARTER PACK 2 TAB BTL PO STA (23:34)
[2018-12-25 23:52] VITALS: BP 152/74; PULSE 52; RESP 18; TEMP 97.8
== END 2018-12-25 23:51 | disposition home or self-care (01) ==
LOC: EC 19:45
DX: N39.0 Urinary tract infection, site not specified (principal); R10.13 Epigastric pain; R10.12 Left upper quadrant pain; R11.0 Nausea; K21.9 Gastro-esophageal reflux disease without esophagitis; F41.9 Anxiety disorder, unspecified; F32.9 Major depressive disorder, single episode, unspecified; F17.200 Nicotine dependence, unspecified, uncomplicated; Z87.19 Personal history of other diseases of the digestive system; Z98.890 Other specified postprocedural states; Z98.84 Bariatric surgery status; Z79.899 Other long term (current) drug therapy; Z88.8 Allergy status to other drugs, medicaments and biological substances
CPT/HCPCS: 36415; 93005; 80053; 82150; 83690; 84484; 85025; 81001; 99284; 96374; 96375; 96361 ×2; J2270; J2405; S0119

== ENCOUNTER 2019-02-19 17:22 | Emergency (ER) | payer OTHER ==
[2019-02-19] MEDS ORDERED: SODIUM CHLORIDE 0.9% 1,000 ML IV STA (17:39)
[2019-02-19] MEDS ORDERED: ONDANSETRON 4 MG/2 ML VIAL IVP STA (17:40)
--- NOTE | 2019-02-19 17:49 | ED ---
Overdose HPI - General Chief Complaint: Overdose Stated Complaint: Mental Health Time Seen by Provider: 02/19/19 17:28 Source: patient Mode of arrival: EMS Limitations: no limitations - History of Present Illness Initial Comments: 53-year-old female patient presents to the emergency department today for evaluation after intentionally overdosing on her trazodone. Patient reports taking 10 tablets of 150 mg trazodone approximately 2 hours ago. Patient states she has been sad and depressed and she was trying to kill herself with this medication. She states she was drinking alcohol earlier in the day. Denies taking any other medications or street drug use. States that she has been admitted to the mental health unit in the past. She denies any current outpatient treatment. Denies any homicidal ideation. Denies any hallucinations. Patient states that currently she feels tired and nauseated. Patient denies any recent rash, fever, chills, shortness breath, chest pain, abdominal pain, diarrhea, constipation, back pain, numbness, tingling, dizziness, weakness, hematuria, dysuria, urinary urgency, urinary frequency, headache, visual changes, or any other complaints. - Related Data Home Medications Medication Instructions Recorded Confirmed Escitalopram [Lexapro] 20 mg PO DAILY 11/24/18 02/19/19 traZODone HCL 150 mg PO HS 11/24/18 02/19/19 Pantoprazole Sodium [Protonix] 40 mg PO DAILY 12/25/18 02/19/19 Biotin 5 mg PO DAILY 02/19/19 02/19/19 Allergies Allergy/AdvReac Type Severity Reaction Status Date / Time prochlorperazine AdvReac Unknown Verified 02/19/19 17:48 [From Compazine] prochlorperazine edisylate AdvReac Unknown Verified 02/19/19 17:48 [From Compazine] prochlorperazine maleate AdvReac Unknown Verified 02/19/19 17:48 [From Compazine] Review of Systems ROS Statement: Those systems with pertinent positive or pertinent negative responses have been documented in the HPI. ROS Other: All systems not noted in ROS Statement are negative. Past Medical History Past Medical History: GERD/Reflux, Hypertension Additional Past Medical History / Comment(s): Past hypotension/bradycardia thoug ht to be medication related, bowel obstruction with surgery, PUD with surgery, gastroparesis, chronic low back pain, DJD, heart murmur as a child. History of Any Multi-Drug Resistant Organisms: None Reported Past Surgical History: Bowel Resection Additional Past Surgical History / Comment(s): ani en y gastric bypass, gastric surgery for PUD, colonoscopy. Past Anesthesia/Blood Transfusion Reactions: No Reported Reaction Past Psychological History: Anxiety, Depression Smoking Status: Current every day smoker - Past Family History Mother Family Medical History: GERD/Reflux, Hypertension Additional Family Medical History / Comment(s): Pt. reports her mother is ove rall healthy and is 81 years old. Father History Unknown: Yes Additional Family Medical History / Comment(s): father was shot and killed when pt was 10 years old. family Additional Family Medical History / Comment(s): denies any history of cancer or CAD in the family General Exam Limitations: no limitations General appearance: alert, in no apparent distress, other (Physical well- developed, well-nourished adult female patient who appears drowsy at this time. Vital signs upon presentation are temperature 97.8F, pulse 84, respirations 16, blood pressure 122/60, pulse ox 98% on room air.) Eye exam: Present: normal appearance, PERRL, EOMI. Absent: scleral icterus, conjunctival injection, nystagmus, periorbital swelling ENT exam: Present: normal exam, normal oropharynx, mucous membranes moist Respiratory exam: Present: normal lung sounds bilaterally. Absent: respiratory distress, wheezes, rales, rhonchi, stridor Cardiovascular Exam: Present: regular rate, normal rhythm, normal heart sounds. Absent: systolic murmur, diastolic murmur, rubs, gallop, clicks GI/Abdominal exam: Present: soft, normal bowel sounds. Absent: distended, tenderness, guarding, rebound, rigid Neurological exam: Present: oriented X3, CN II-XII intact. Absent: alert (Drowsy ) Psychiatric exam: Present: normal affect, normal mood Skin exam: Present: warm, dry, intact, normal color. Absent: rash Course Vital Signs 02/19/19 02/19/19 02/19/19 17:26 17:27 17:30 Temperature 97.8 F Pulse Rate 84 Respiratory 16 Rate Blood Pressure 122/60 122/60 O2 Sat by Pulse 98 85 L Oximetry 02/19/19 02/19/19 02/19/19 17:40 17:50 18:00 Temperature Pulse Rate 62 80 61 Respiratory 15 14 14 Rate Blood Pressure 122/60 93/49 93/49 O2 Sat by Pulse 96 98 94 L Oximetry 02/19/19 02/19/19 02/19/19 18:10 18:20 18:30 Temperature Pulse Rate 80 61 65 Respiratory 10 L 13 13 Rate Blood Pressure 100/53 100/53 100/53 O2 Sat by Pulse 97 96 97 Oximetry 02/19/19 02/19/19 02/19/19 18:40 18:50 19:00 Temperature Pulse Rate 68 67 112 H Respiratory 14 16 25 H Rate Blood Pressure 96/53 96/53 96/53 O2 Sat by Pulse 98 98 Oximetry 02/19/19 02/19/19 02/19/19 19:10 19:20 19:30 Temperature Pulse Rate 70 66 71 Respiratory 15 15 15 Rate Blood Pressure 125/64 125/64 125/64 O2 Sat by Pulse Oximetry 02/19/19 02/19/19 02/19/19 19:40 19:50 20:00 Temperature Pulse Rate 87 80 89 Respiratory 17 14 54 H Rate Blood Pressure 100/50 100/50 100/50 O2 Sat by Pulse Oximetry 02/19/19 20:10 Temperature Pulse Rate 79 Respiratory 11 L Rate Blood Pressure 121/50 O2 Sat by Pulse Oximetry Medical Decision Making - Medical Decision Making 53-year-old female patient presented to the emergency department today for evaluation after intentionally overdosing on her trazodone. Patient does admit to drinking alcohol as well. Physical examination is unremarkable. Patient is somewhat drowsy during exam. EKG was unremarkable. Labs reviewed and are unremarkable. Patient was cleared medically and seen by emergency psychiatric services. She did undergo extensive evaluation it is felt that she is safe to be discharged home. She'll be discharged to the care of her daughter who will be able to monitor the patient. She was provided with outpatient referrals and instructed to follow-up as soon as possible with outpatient mental health services. She is instructed to follow-up with her primary care physician for recheck in 1-2 days. Return parameters discussed in detail. She verbalizes und erstanding and agrees with this plan. - Lab Data Result diagrams: 02/19/19 17:40 02/19/19 17:40 Lab Results 02/19/19 02/19/1919 Range/Units 17:40 17:40 19:14 WBC 11.4 H (3.8-10.6) k/uL RBC 3.89 (3.80-5.40) m/uL Hgb 12.0 (11.4-16.0) gm/dL Hct 36.2 (34.0-46.0) % MCV 92.8 (80.0-100.0) fL MCH 30.7 (25.0-35.0) pg MCHC 33.1 (31.0-37.0) g/dL RDW 15.2 (11.5-15.5) % Plt Count 280 (150-450) k/uL Neutrophils % 80 % Lymphocytes % 13 % Monocytes % 5 % Eosinophils % 1 % Basophils % 0 % Neutrophils # 9.1 H (1.3-7.7) k/uL Lymphocytes # 1.4 (1.0-4.8) k/uL Monocytes # 0.5 (0-1.0) k/uL Eosinophils # 0.2 (0-0.7) k/uL Basophils # 0.1 (0-0.2) k/uL Sodium 142 (137-145) mmol/L Potassium 3.3 L (3.5-5.1) mmol/L Chloride 112 H (98-107) mmol/L Carbon Dioxide 14 L (22-30) mmol/L Anion Gap 16 mmol/L BUN 27 H (7-17) mg/dL Creatinine 0.73 (0.52-1.04) mg/dL Est GFR (CKD-EPI)AfAm >90 (>60 ml/min/1.73 sqM) Est GFR (CKD-EPI)NonAf >90 (>60 ml/min/1.73 sqM) Glucose 60 L (74-99) mg/dL Calcium 9.0 (8.4-10.2) mg/dL Total Bilirubin 0.2 (0.2-1.3) mg/dL AST 25 (14-36) U/L ALT 20 (9-52) U/L Alkaline Phosphatase 87 (38-126) U/L Total Protein 5.9 L (6.3-8.2) g/dL Albumin 3.6 (3.5-5.0) g/dL Urine HCG, Qual (Not Detectd) Salicylates 2.6 mg/dL Urine Opiates Screen Not Detected (NotDetected) Ur Oxycodone Screen Not Detected (NotDetected) Urine Methadone Screen Not Detected (NotDetected) Ur Propoxyphene Screen Not Detected (NotDetected) Acetaminophen <10.0 ug/mL Ur Barbiturates Screen Not Detected (NotDetected) U Tricyclic Antidepress Not Detected (NotDetected) Ur Phencyclidine Scrn Not Detected (NotDetected) Ur Amphetamines Screen Not Detected (NotDetected) U Methamphetamines Scrn Detected H (NotDetected) U Benzodiazepines Scrn Detected H (NotDetected) Urine Cocaine Screen Not Detected (NotDetected) U Marijuana (THC) Screen Detected H (NotDetected) Serum Alcohol 66 mg/dL 02/19/19 Range/Units 19:14 WBC (3.8-10.6) k/uL RBC (3.80-5.40) m/uL Hgb (11.4-16.0) gm/dL Hct (34.0-46.0) % MCV (80.0-100.0) fL MCH (25.0-35.0) pg MCHC (31.0-37.0) g/dL RDW (11.5-15.5) % Plt Count (150-450) k/uL Neutrophils % % Lymphocytes % % Monocytes % % Eosinophils % % Basophils % % Neutrophils # (1.3-7.7) k/uL Lymphocytes # (1.0-4.8) k/uL Monocytes # (0-1.0) k/uL Eosinophils # (0-0.7) k/uL Basophils # (0-0.2) k/uL Sodium (137-145) mmol/L Potassium (3.5-5.1) mmol/L Chloride (98-107) mmol/L Carbon Dioxide (22-30) mmol/L Anion Gap mmol/L BUN (7-17) mg/dL Creatinine (0.52-1.04) mg/dL Est GFR (CKD-EPI)AfAm (>60 ml/min/1.73 sqM) Est GFR (CKD-EPI)NonAf (>60 ml/min/1.73 sqM) Glucose (74-99) mg/dL Calcium (8.4-10.2) mg/dL Total Bilirubin (0.2-1.3) mg/dL AST (14-36) U/L ALT (9-52) U/L Alkaline Phosphatase (38-126) U/L Total Protein (6.3-8.2) g/dL Albumin (3.5-5.0) g/dL Urine HCG, Qual Not Detected (Not Detectd) Salicylates mg/dL Urine Opiates Screen (NotDetected) Ur Oxycodone Screen (NotDetected) Urine Methadone Screen (NotDetected) Ur Propoxyphene Screen (NotDetected) Acetaminophen ug/mL Ur Barbiturates Screen (NotDetected) U Tricyclic Antidepress (NotDetected) Ur Phencyclidine Scrn (NotDetected) Ur Amphetamines Screen (NotDetected) U Methamphetamines Scrn (NotDetected) U Benzodiazepines Scrn (NotDetected) Urine Cocaine Screen (NotDetected) U Marijuana (THC) Screen (NotDetected) Serum Alcohol mg/dL - EKG Data -: EKG Interpreted by Me EKG Comments: EKG obtained at 1811 shows normal sinus rhythm with a ventricular rate is 75, AR interval 152, QRS duration 84, QT 422, QTc 471. No evidence of ST elevation or depression. Disposition Clinical Impression: Overdose, Alcohol intoxication Disposition: HOME SELF-CARE Condition: Good Instructions (If sedation given, give patient instructions): Alcohol Intoxicat ion (ED), Adult Overdose (ED) Additional Instructions: Follow-up with outpatient mental health services. Follow-up with your primary care physician for recheck in 1-2 days. Return to the emergency department immediately for any new, worsening, or concerning symptoms. Is patient prescribed a controlled substance at d/c from ED?: No Referrals: Алекснадр Uribe DO [Primary Care Provider] - 1-2 days Time of Disposition: 21:57
[2019-02-19 17:57] LABS: Basophils # (A) 0.1 k/uL (0-0.2); Basophils % (A) 0 %; Eosinophils # (A) 0.2 k/uL (0-0.7); Eosinophils % (A) 1 %; HCT 36.2 % (34.0-46.0); Lymphocytes # (A) 1.4 k/uL (1.0-4.8); Lymphocytes % (A) 13 %; MCH 30.7 pg (25.0-35.0); MCHC 33.1 g/dL (31.0-37.0); MCV 92.8 fL (80.0-100.0); Mean Platelet Volume 9.6; Monocytes # (A) 0.5 k/uL (0-1.0); Monocytes % (A) 5 %; Neutrophils # (A) 9.1 k/uL (1.3-7.7); Neutrophils % (A) 80 %; Platelet Count 280 k/uL (150-450); RBC 3.89 m/uL (3.80-5.40); RDW 15.2 % (11.5-15.5); WBC 11.4 k/uL (3.8-10.6)
[2019-02-19 18:15] LABS: ALT 20 U/L (9-52); AST 25 U/L (14-36); Acetaminophen <10.0 ug/mL; Albumin 3.6 g/dL (3.5-5.0); Alcohol 66 mg/dL; Alkaline Phosphatase 87 U/L (38-126); Anion Gap 16 mmol/L; Blood Urea Nitrogen 27 mg/dL (7-17); Carbon Dioxide 14 mmol/L (22-30); Chloride 112 mmol/L (98-107); Glucose 60 mg/dL (74-99); Potassium 3.3 mmol/L (3.5-5.1); Salicylate 2.6 mg/dL; Sodium 142 mmol/L (137-145); Total Bilirubin 0.2 mg/dL (0.2-1.3); Total Protein 5.9 g/dL (6.3-8.2)
[2019-02-19] MEDS ORDERED: POTASSIUM CHLORIDE ER 20 MEQ TAB.ER PO STA (18:48)
[2019-02-19 19:56] LABS: Amphetamine Screen,Urine Not Detected (NotDetected); Barbiturate Screen,Urine Not Detected (NotDetected); Benzodiazepines Screen,Urine Detected (NotDetected); Cocaine Screen,Urine Not Detected (NotDetected); Methadone Screen, Urine Not Detected (NotDetected); Opiate Screen,Urine Not Detected (NotDetected); Oxycodone Screen, Urine Not Detected (NotDetected); Phencyclidine Screen,Urine Not Detected (NotDetected); Tricyclic Antidepressant,Urine Not Detected (NotDetected); Urn Cannabinoid Scrn Detected (NotDetected)
[2019-02-19 22:25] VITALS: BP 99/52; PULSE 64; RESP 18; TEMP 98
== END 2019-02-19 22:38 | disposition home or self-care (01) ==
LOC: EC 17:22
DX: T43.212A Poisoning by selective serotonin and norepinephrine reuptake inhibitors, intentional self-harm, initial encounter (principal); F10.129 Alcohol abuse with intoxication, unspecified; K21.9 Gastro-esophageal reflux disease without esophagitis; F41.9 Anxiety disorder, unspecified; F32.9 Major depressive disorder, single episode, unspecified; F17.200 Nicotine dependence, unspecified, uncomplicated; Z79.899 Other long term (current) drug therapy; Z88.8 Allergy status to other drugs, medicaments and biological substances; Z98.84 Bariatric surgery status
CPT/HCPCS: 36415; 93005; 80053; 85025; 81025; 80306; 83520 ×2; 99285; 96374; 96361 ×3; G0480; J2405; 80320

== ENCOUNTER 2019-06-17 21:57 | Emergency (ER) | payer OTHER ==
[2019-06-17] MEDS ORDERED: ONDANSETRON 4 MG/2 ML VIAL IVP STA (22:41)
[2019-06-17] MEDS ORDERED: HYDROmorphone 0.5 MG/0.5 ML SYRINGE IVP STA (22:41)
[2019-06-17] MEDS ORDERED: SODIUM CHLORIDE 0.9% 1,000 ML IV STA (22:41)
[2019-06-17 23:17] LABS: Basophils # (A) 0.1 k/uL (0-0.2); Basophils % (A) 1 %; Eosinophils # (A) 0.2 k/uL (0-0.7); Eosinophils % (A) 3 %; HCT 39.5 % (34.0-46.0); HGB 12.7 gm/dL (11.4-16.0); Lymphocytes # (A) 2.4 k/uL (1.0-4.8); Lymphocytes % (A) 35 %; MCH 30.2 pg (25.0-35.0); MCHC 32.2 g/dL (31.0-37.0); MCV 93.5 fL (80.0-100.0); Monocytes # (A) 0.5 k/uL (0-1.0); Monocytes % (A) 7 %; Neutrophils # (A) 3.4 k/uL (1.3-7.7); Neutrophils % (A) 51 %; Platelet Count 344 k/uL (150-450); RBC 4.23 m/uL (3.80-5.40); RDW 13.1 % (11.5-15.5); WBC 6.7 k/uL (3.8-10.6)
[2019-06-17 23:27] LABS: ALT 29 U/L (9-52); AST 46 U/L (14-36); African American GFR (CKD) >90 (>60 ml/min/1.73 sqM); Albumin 4.4 g/dL (3.5-5.0); Alkaline Phosphatase 72 U/L (38-126); Amylase 51 U/L (30-110); Anion Gap 10 mmol/L; Blood Urea Nitrogen 21 mg/dL (7-17); Calcium 9.4 mg/dL (8.4-10.2); Carbon Dioxide 26 mmol/L (22-30); Chloride 102 mmol/L (98-107); Glucose 108 mg/dL (74-99); Non-African American GFR(CKD) 90 (>60 ml/min/1.73 sqM); Sodium 138 mmol/L (137-145); Total Bilirubin 0.6 mg/dL (0.2-1.3); Total Protein 7.2 g/dL (6.3-8.2)
[2019-06-17 23:29] LABS: Appearance,Urine Clear (Clear); Bilirubin,Urine Negative (Negative); Blood,Urine Negative (Negative); Color,Urine Yellow; Glucose,Urine (UA) Negative (Negative); Ketones,Urine Negative (Negative); Leukocyte Esterase,Urine Small (Negative); Mucus,Urine Occasional /hpf; Nitrite,Urine Negative (Negative); Protein,Urine Trace (Negative); RBC,Urine 2 /hpf (0-5); Specific Gravity,Urine 1.026 (1.001-1.035); Squamous Epithelial Cell,Urine 5 /hpf (0-4); WBC,Urine 6 /hpf (0-5)
[2019-06-17 23:34] LABS: Potassium 4.4 mmol/L (3.5-5.1)
--- NOTE | 2019-06-17 23:38 | XR ---
EXAM: XR Abdomen, 1 View CLINICAL HISTORY: abdominal pain TECHNIQUE: Frontal supine view of the abdomen/pelvis. COMPARISON: 02/21/2016 FINDINGS: Intraperitoneal space: No pneumatosis or pneumoperitoneum. Gastrointestinal tract: Gas is present throughout the nondilated colon. Distended debris-filled stomach. Bones/joints: No acute fracture or malalignment. IMPRESSION: Nonspecific bowel gas pattern. No pneumatosis or pneumoperitoneum.
[2019-06-18] MEDS ORDERED: ONDANSETRON 4 MG ODT STARTER PACK 2 TAB BTL PO STA (00:01)
[2019-06-18 00:15] VITALS: BP 167/80; RESP 18; TEMP 98
--- NOTE | 2019-06-18 00:19 | ED ---
Abdominal Pain HPI - General Chief Complaint: Abdominal Pain Stated Complaint: Abd pain Time Seen by Provider: 06/17/19 22:05 Source: patient Mode of arrival: ambulatory Limitations: no limitations - History of Present Illness Initial Comments: Patient is a 54-year-old female presents emergency Department with a chief complaint of abdominal pain. Patient had a Pa Y procedure performed few years ago and has occasional bouts with pancreatitis ever since. She reports the pain started last night after eating meat. Patient reports she has not he never since the incident occurred. Patient reports nausea but no vomiting. Patient reports the pain is exacerbated with palpation and when laying supine. Patient denies any urinary or bowel symptoms. Patient denies hematuria, hematochezia or melena. Patient denies fever, chest pain, chest tightness shortness of breath. - Related Data Home Medications Medication Instructions Recorded Confirmed Escitalopram [Lexapro] 20 mg PO DAILY 11/24/18 06/17/19 traZODone HCL 150 mg PO HS 11/24/18 06/17/19 Pantoprazole Sodium [Protonix] 40 mg PO DAILY 12/25/18 06/17/19 Biotin 5 mg PO DAILY 02/19/19 06/17/19 Previous Rx's Medication Instructions Recorded Ondansetron Odt [Zofran Odt] 4 mg PO Q8HR PRN #10 tab 06/18/19 Allergies Allergy/AdvReac Type Severity Reaction Status Date / Time prochlorperazine AdvReac Unknown Verified 06/17/19 22:34 [From Compazine] prochlorperazine edisylate AdvReac Unknown Verified 06/17/19 22:34 [From Compazine] prochlorperazine maleate AdvReac Unknown Verified 06/17/19 22:34 [From Compazine] Review of Systems ROS Statement: Those systems with pertinent positive or pertinent negative responses have been documented in the HPI. ROS Other: All systems not noted in ROS Statement are negative. Past Medical History Past Medical History: GERD/Reflux, Hypertension Additional Past Medical History / Comment(s): Past hypotension/bradycardia thought to be medication related, bowel obstruction with surgery, PUD with surgery, gastroparesis, chronic low back pain, DJD, heart murmur as a child. History of Any Multi-Drug Resistant Organisms: None Reported Past Surgical History: Bowel Resection Additional Past Surgical History / Comment(s): pa en y gastric bypass, gastric surgery for PUD, colonoscopy. Past Anesthesia/Blood Transfusion Reactions: No Reported Reaction Past Psychological History: Anxiety, Depression Smoking Status: Current every day smoker Past Alcohol Use History: None Reported - Past Family History Mother Family Medical History: GERD/Reflux, Hypertension Additional Family Medical History / Comment(s): Pt. reports her mother is overall healthy and is 81 years old. Father History Unknown: Yes Additional Family Medical History / Comment(s): father was shot and killed when pt was 10 years old. family Additional Family Medical History / Comment(s): denies any history of cancer or CAD in the family General Exam Limitations: no limitations General appearance: alert, in no apparent distress Head exam: Present: atraumatic, normocephalic, normal inspection Eye exam: Present: normal appearance, PERRL, EOMI Pupils: Present: normal accommodation ENT exam: Present: normal exam, mucous membranes moist, normal external ear exam Neck exam: Present: normal inspection, full ROM Respiratory exam: Present: normal lung sounds bilaterally Cardiovascular Exam: Present: regular rate, normal rhythm, normal heart sounds GI/Abdominal exam: Present: soft, tenderness (Epigastric tenderness to palpation), normal bowel sounds, other (Abdominal Scarring from previous procedure). Absent: distended, guarding, rebound Extremities exam: Present: normal inspection, full ROM Back exam: Present: normal inspection, full ROM Neurological exam: Present: alert, oriented X3 Psychiatric exam: Present: normal affect, normal mood Skin exam: Present: warm, intact, normal color Course Vital Signs 06/17/19 06/18/19 22:14 00:14 Temperature 97.8 F 98 F Pulse Rate 60 56 L Respiratory 16 18 Rate Blood Pressure 159/89 167/80 O2 Sat by Pulse 97 96 Oximetry Medical Decision Making - Medical Decision Making Patient is a 54-year-old female presents emergency Department with a chief complaint of abdominal pain. Labs are unremarkable. KUB is unremarkable as well. UA is not indicative of a UTI. Patient's vitals are stable. On reevaluation patient reports feeling better and is ready go home. I suspect the patient's abdominal pain to be resolved from her abdominal procedure. Patient advised to avoid meats or other protein products. Patient discharged with Zofran. Patient advised to follow with GI. Strict return parameters were thoroughly discussed the patient is understanding and agreeable. Case discussed with physician. - Lab Data Result diagrams: 06/17/19 23:00 06/17/19 23:00 Lab Results 06/17/19 06/17/19 06/17/19 Range/Units 23:00 23:00 23:00 WBC 6.7 (3.8-10.6) k/uL RBC 4.23 (3.80-5.40) m/uL Hgb 12.7 (11.4-16.0) gm/dL Hct 39.5 (34.0-46.0) % MCV 93.5 (80.0-100.0) fL MCH 30.2 (25.0-35.0) pg MCHC 32.2 (31.0-37.0) g/dL RDW 13.1 (11.5-15.5) % Plt Count 344 (150-450) k/uL Neutrophils % 51 % Lymphocytes % 35 % Monocytes % 7 % Eosinophils % 3 % Basophils % 1 % Neutrophils # 3.4 (1.3-7.7) k/uL Lymphocytes # 2.4 (1.0-4.8) k/uL Monocytes # 0.5 (0-1.0) k/uL Eosinophils # 0.2 (0-0.7) k/uL Basophils # 0.1 (0-0.2) k/uL Sodium 138 (137-145) mmol/L Potassium 4.4 (3.5-5.1) mmol/L Chloride 102 (98-107) mmol/L Carbon Dioxide 26 (22-30) mmol/L Anion Gap 10 mmol/L BUN 21 H (7-17) mg/dL Creatinine 0.76 (0.52-1.04) mg/dL Est GFR (CKD-EPI)AfAm >90 (>60 ml/min/1.73 sqM) Est GFR (CKD-EPI)NonAf 90 (>60 ml/min/1.73 sqM) Glucose 108 H (74-99) mg/dL Calcium 9.4 (8.4-10.2) mg/dL Total Bilirubin 0.6 (0.2-1.3) mg/dL AST 46 H (14-36) U/L ALT 29 (9-52) U/L Alkaline Phosphatase 72 (38-126) U/L Total Protein 7.2 (6.3-8.2) g/dL Albumin 4.4 (3.5-5.0) g/dL Amylase 51 (30-110) U/L Lipase 52 (23-300) U/L Urine Color Yellow Urine Appearance Clear (Clear) Urine pH 6.0 (5.0-8.0) Ur Specific [place] 1.026 (1.001-1.035) Urine Protein Trace H (Negative) Urine Glucose (UA) Negative (Negative) Urine Ketones Negative (Negative) Urine Blood Negative (Negative) Urine Nitrite Negative (Negative) Urine Bilirubin Negative (Negative) Urine Urobilinogen 2.0 (<2.0) mg/dL Ur Leukocyte Esterase Small H (Negative) Urine RBC 2 (0-5) /hpf Urine WBC 6 H (0-5) /hpf Ur Squamous Epith Cells 5 H (0-4) /hpf Urine Mucus Occasional H (None) /hpf Disposition Clinical Impression: Abdominal pain Disposition: HOME SELF-CARE Condition: Stable Instructions (If sedation given, give patient instructions): Abdominal Pain (ED) Additional Instructions: Please follow with a GI specialist. Please return to emergency department if symptoms worsen. Please take prescribed medication as directed. Prescriptions: Ondansetron Odt [Zofran Odt] 4 mg PO Q8HR PRN #10 tab PRN Reason: Nausea Is patient prescribed a controlled substance at d/c from ED?: No Referrals: Александр Uribe DO [Primary Care Provider] - 1-2 days Aurea Floyd MD [STAFF PHYSICIAN] - 1-2 days Time of Disposition: 00:19
[2019-06-18 00:37] VITALS: PULSE 60
== END 2019-06-18 00:34 | disposition home or self-care (01) ==
LOC: EC 21:57
DX: R10.9 Unspecified abdominal pain (principal); R11.0 Nausea; R10.816 Epigastric abdominal tenderness; K21.9 Gastro-esophageal reflux disease without esophagitis; F41.9 Anxiety disorder, unspecified; F32.9 Major depressive disorder, single episode, unspecified; F17.200 Nicotine dependence, unspecified, uncomplicated; Z79.899 Other long term (current) drug therapy; Z88.8 Allergy status to other drugs, medicaments and biological substances; Z98.84 Bariatric surgery status
CPT/HCPCS: 36415; 80053; 82150; 83690; 85025; 81001; 74018; 99284; 96374; 96375; 96361; J2405; J1170

== ENCOUNTER 2019-12-10 11:56 | Emergency (ER) | payer OTHER ==
[2019-12-10] MEDS ORDERED: KETOROLAC 30 MG/ML 1 ML VIAL IVP STA (12:55)
[2019-12-10] MEDS ORDERED: ONDANSETRON 4 MG/2 ML VIAL IVP STA (12:55)
[2019-12-10] MEDS ORDERED: SODIUM CHLORIDE 0.9% 1,000 ML IV STA ×2 (12:55)
[2019-12-10] MEDS ORDERED: PANTOPRAZOLE 40 MG/10 ML VIAL IVP STA (12:55)
--- NOTE | 2019-12-10 14:10 | XR ---
EXAMINATION TYPE: XR KUB DATE OF EXAM: 12/10/2019 COMPARISON: 06/17/2019 HISTORY: Pain TECHNIQUE: One view abdominal series FINDINGS: The osseous structures are intact. The bowel gas pattern is nonspecific. Lung bases are clear. Dens ity seen overlying the left lower quadrant which may be related to surgery correlate clinically. IMPRESSION: 1. Nonspecific abdomen. There is a area of increased density in the left lower quadrant. This is ind eterminate correlate for previous surgery. Bowel content or foreign body also the differential diagno sis.
[2019-12-10 14:18] VITALS: RESP 20
--- NOTE | 2019-12-10 14:18 | ED ---
Abdominal Pain HPI - General Chief Complaint: Abdominal Pain Stated Complaint: Abd pain,vomiting Time Seen by Provider: 12/10/19 12:31 Source: patient, RN notes reviewed, old records reviewed Mode of arrival: ambulatory Limitations: no limitations - History of Present Illness Initial Comments: Patient is a 54 year old female with CC of nausea, upper abdominal pain, and vomiting. Hx of Pa-en-Y surgery years ago, and hx of ulcers. She has been out of protonix for some time. She states she is concerned she may have pancreatitis. - Related Data Home Medications Medication Instructions Recorded Confirmed Escitalopram [Lexapro] 20 mg PO DAILY 11/24/18 06/17/19 traZODone HCL 150 mg PO HS 11/24/18 06/17/19 Pantoprazole Sodium [Protonix] 40 mg PO DAILY 12/25/18 06/17/19 Biotin 5 mg PO DAILY 02/19/19 06/17/19 Previous Rx's Medication Instructions Recorded Ondansetron Odt [Zofran Odt] 4 mg PO Q8HR PRN #10 tab 06/18/19 Metoclopramide HCl [Reglan] 10 mg PO TID #12 tablet 12/10/19 Sucralfate [Carafate] 1 gm PO ACHS #12 tablet 12/10/19 Allergies Allergy/AdvReac Type Severity Reaction Status Date / Time prochlorperazine AdvReac Unknown Verified 12/10/19 12:04 [From Compazine] prochlorperazine edisylate AdvReac Unknown Verified 12/10/19 12:04 [From Compazine] prochlorperazine maleate AdvReac Unknown Verified 12/10/19 12:04 [From Compazine] Review of Systems ROS Statement: Those systems with pertinent positive or pertinent negative responses have been documented in the HPI. ROS Other: All systems not noted in ROS Statement are negative. Past Medical History Past Medical History: GERD/Reflux, Hypertension Additional Past Medical History / Comment(s): Past hypotension/bradycardia thought to be medication related, bowel obstruction with surgery, PUD with surgery, gastroparesis, chronic low back pain, DJD, heart murmur as a child. History of Any Multi-Drug Resistant Organisms: None Reported Past Surgical History: Bowel Resection Additional Past Surgical History / Comment(s): pa en y gastric bypass, gastric surgery for PUD, colonoscopy. Past Anesthesia/Blood Transfusion Reactions: No Reported Reaction Past Psychological History: Anxiety, Depression Smoking Status: Former smoker Past Alcohol Use History: Occasional Past Drug Use History: Marijuana - Past Family History Mother Family Medical History: GERD/Reflux, Hypertension Additional Family Medical History / Comment(s): Pt. reports her mother is overall healthy and is 81 years old. Father History Unknown: Yes Additional Family Medical History / Comment(s): father was shot and killed when pt was 10 years old. family Additional Family Medical History / Comment(s): denies any history of cancer or CAD in the family General Exam - General Exam Comments Initial Comments: 54 year old female, no distress. Limitations: no limitations General appearance: alert, in no apparent distress Head exam: Present: atraumatic, normocephalic, normal inspection Eye exam: Present: normal appearance, PERRL, EOMI. Absent: scleral icterus, conjunctival injection, periorbital swelling ENT exam: Present: normal exam, mucous membranes moist Neck exam: Present: normal inspection. Absent: tenderness, meningismus, lymphadenopathy Respiratory exam: Present: normal lung sounds bilaterally. Absent: respiratory distress, wheezes, rales, rhonchi, stridor Cardiovascular Exam: Present: regular rate, normal rhythm, normal heart sounds. Absent: systolic murmur, diastolic murmur, rubs, gallop, clicks GI/Abdominal exam: Present: soft, tenderness (epigastric), normal bowel sounds. Absent: distended, guarding, rebound, rigid Extremities exam: Present: normal inspection, full ROM, normal capillary refill. Absent: tenderness, pedal edema, joint swelling, calf tenderness Back exam: Present: normal inspection Neurological exam: Present: alert, oriented X3, CN II-XII intact Psychiatric exam: Present: normal affect, normal mood Course Vital Signs 12/10/19 12/10/19 12/10/19 12:04 14:07 16:35 Temperature 97.8 F 97.9 F Pulse Rate 74 78 59 L Respiratory 18 20 20 Rate Blood Pressure 107/62 101/56 122/76 O2 Sat by Pulse 97 99 99 Oximetry Medical Decision Making - Medical Decision Making 54 year old female, with nausea and upper abdominal pain. Labs were reviewed and unremarkable. Patient has improvement of symptoms after protonix Disucssed likely gastritis. Patient advised to follow up with PCP and GI. She may need upper endoscopy. Will DC with carafate and advised to resume protonix. Discussed return parameters. . - Lab Data Result diagrams: 12/10/19 13:45 12/10/19 15:00 Lab Results 12/10/19 12/10/19 12/10/19 Range/Units 13:45 13:45 15:00 WBC 7.4 (3.8-10.6) k/uL RBC 4.36 (3.80-5.40) m/uL Hgb 13.5 (11.4-16.0) gm/dL Hct 41.4 (34.0-46.0) % MCV 95.0 (80.0-100.0) fL MCH 30.9 (25.0-35.0) pg MCHC 32.5 (31.0-37.0) g/dL RDW 12.5 (11.5-15.5) % Plt Count 287 (150-450) k/uL Neutrophils % 63 % Lymphocytes % 24 % Monocytes % 7 % Eosinophils % 3 % Basophils % 1 % Neutrophils # 4.7 (1.3-7.7) k/uL Lymphocytes # 1.8 (1.0-4.8) k/uL Monocytes # 0.5 (0-1.0) k/uL Eosinophils # 0.2 (0-0.7) k/uL Basophils # 0.1 (0-0.2) k/uL Sodium 138 (137-145) mmol/L Potassium 4.6 (3.5-5.1) mmol/L Chloride 108 H (98-107) mmol/L Carbon Dioxide 24 (22-30) mmol/L Anion Gap 6 mmol/L BUN 34 H (7-17) mg/dL Creatinine 0.59 (0.52-1.04) mg/dL Est GFR (CKD-EPI)AfAm >90 (>60 ml/min/1.73 sqM) Est GFR (CKD-EPI)NonAf >90 (>60 ml/min/1.73 sqM) Glucose 88 (74-99) mg/dL Calcium 8.4 (8.4-10.2) mg/dL Total Bilirubin 0.3 (0.2-1.3) mg/dL AST 28 (14-36) U/L ALT 17 (4-34) U/L Alkaline Phosphatase 70 (38-126) U/L Total Protein 5.9 L (6.3-8.2) g/dL Albumin 3.5 (3.5-5.0) g/dL Amylase 43 (30-110) U/L Lipase 517 H (23-300) U/L Urine Color Yellow Urine Appearance Cloudy H (Clear) Urine pH 5.5 (5.0-8.0) Ur Specific [place] 1.032 (1.001-1.035) Urine Protein Negative (Negative) Urine Glucose (UA) Negative (Negative) Urine Ketones Negative (Negative) Urine Blood Negative (Negative) Urine Nitrite Negative (Negative) Urine Bilirubin Negative (Negative) Urine Urobilinogen <2.0 (<2.0) mg/dL Ur Leukocyte Esterase Large H (Negative) Urine RBC 4 (0-5) /hpf Urine WBC 6 H (0-5) /hpf Ur Squamous Epith Cells 7 H (0-4) /hpf Urine Bacteria Rare H (None) /hpf Urine Mucus Occasional H (None) /hpf - Radiology Data Radiology results: report reviewed Nonspecific abdomen. There is an area of density in LLQ. This is indeterminate correlate for previous surgery. Bowel content or foreign body also in differential. Disposition Clinical Impression: Acute gastritis, Nausea & vomiting Disposition: HOME SELF-CARE Condition: Good Instructions (If sedation given, give patient instructions): Gastritis (ED) Additional Instructions: Patient advised to have a clear liquid diet for the first 24-48 hours. Patient can use nausea medicine as prescribed. Return to the emergency department if any alarming signs or symptoms occur. Prescriptions: Sucralfate [Carafate] 1 gm PO ACHS #12 tablet Metoclopramide HCl [Reglan] 10 mg PO TID #12 tablet Is patient prescribed a controlled substance at d/c from ED?: No Referrals: Александр Uribe DO [Primary Care Provider] - 1-2 days Maya Jeff MD [STAFF PHYSICIAN] - 1-2 days Time of Disposition: 16:06
[2019-12-10 14:28] LABS: Basophils # (A) 0.1 k/uL (0-0.2); Basophils % (A) 1 %; Eosinophils # (A) 0.2 k/uL (0-0.7); Eosinophils % (A) 3 %; HCT 41.4 % (34.0-46.0); HGB 13.5 gm/dL (11.4-16.0); Lymphocytes # (A) 1.8 k/uL (1.0-4.8); Lymphocytes % (A) 24 %; MCH 30.9 pg (25.0-35.0); MCHC 32.5 g/dL (31.0-37.0); Mean Platelet Volume 8.6; Monocytes # (A) 0.5 k/uL (0-1.0); Monocytes % (A) 7 %; Neutrophils # (A) 4.7 k/uL (1.3-7.7); Neutrophils % (A) 63 %; Platelet Count 287 k/uL (150-450); RBC 4.36 m/uL (3.80-5.40); RDW 12.5 % (11.5-15.5); WBC 7.4 k/uL (3.8-10.6)
[2019-12-10 14:33] LABS: Appearance,Urine Cloudy (Clear); Bacteria,Urine Rare /hpf; Bilirubin,Urine Negative (Negative); Blood,Urine Negative (Negative); Color,Urine Yellow; Glucose,Urine (UA) Negative (Negative); Ketones,Urine Negative (Negative); Leukocyte Esterase,Urine Large (Negative); Mucus,Urine Occasional /hpf; Nitrite,Urine Negative (Negative); PH, Urine 5.5 (5.0-8.0); Protein,Urine Negative (Negative); RBC,Urine 4 /hpf (0-5); Specific Gravity,Urine 1.032 (1.001-1.035); Squamous Epithelial Cell,Urine 7 /hpf (0-4); Urobilinogen,Urine <2.0 mg/dL (<2.0); WBC,Urine 6 /hpf (0-5)
[2019-12-10] MEDS ORDERED: MORPHINE SULFATE 4 MG/ML SYRINGE IVP STA (15:07)
[2019-12-10 15:45] LABS: ALT 17 U/L (4-34); AST 28 U/L (14-36); African American GFR (CKD) >90 (>60 ml/min/1.73 sqM); Albumin 3.5 g/dL (3.5-5.0); Alkaline Phosphatase 70 U/L (38-126); Amylase 43 U/L (30-110); Anion Gap 6 mmol/L; Blood Urea Nitrogen 34 mg/dL (7-17); Calcium 8.4 mg/dL (8.4-10.2); Carbon Dioxide 24 mmol/L (22-30); Chloride 108 mmol/L (98-107); Glucose 88 mg/dL (74-99); Non-African American GFR(CKD) >90 (>60 ml/min/1.73 sqM); Potassium 4.6 mmol/L (3.5-5.1); Sodium 138 mmol/L (137-145); Total Bilirubin 0.3 mg/dL (0.2-1.3); Total Protein 5.9 g/dL (6.3-8.2)
[2019-12-10 16:40] VITALS: BP 122/76; PULSE 59; TEMP 97.9
== END 2019-12-10 16:35 | disposition home or self-care (01) ==
LOC: EC 11:56
DX: K29.00 Acute gastritis without bleeding (principal); K21.9 Gastro-esophageal reflux disease without esophagitis; F32.9 Major depressive disorder, single episode, unspecified; F41.9 Anxiety disorder, unspecified; Z83.79 Family history of other diseases of the digestive system; Z87.891 Personal history of nicotine dependence; Z88.8 Allergy status to other drugs, medicaments and biological substances; Z79.899 Other long term (current) drug therapy; Z87.11 Personal history of peptic ulcer disease; Z90.49 Acquired absence of other specified parts of digestive tract; Z98.84 Bariatric surgery status; Z98.890 Other specified postprocedural states
CPT/HCPCS: 36415; 80053; 82150; 83690; 85025; 81001; 74018; 99284; 96374; 96375 ×3; 96361 ×3; J2270; J2405; J1885; C9113

== ENCOUNTER → 2020-01-27 | Outpatient (CLI) | payer OTHER ==
[2020-01-27 11:18] LABS: Basophils # (A) 0.1 k/uL (0-0.2); Basophils % (A) 1 %; Eosinophils # (A) 0.3 k/uL (0-0.7); Eosinophils % (A) 4 %; HGB 14.2 gm/dL (11.4-16.0); Lymphocytes # (A) 2.2 k/uL (1.0-4.8); Lymphocytes % (A) 33 %; MCH 31.6 pg (25.0-35.0); MCV 95.7 fL (80.0-100.0); Monocytes # (A) 0.4 k/uL (0-1.0); Monocytes % (A) 6 %; Neutrophils # (A) 3.5 k/uL (1.3-7.7); Neutrophils % (A) 53 %; Platelet Count 314 k/uL (150-450); RDW 12.6 % (11.5-15.5); WBC 6.6 k/uL (3.8-10.6)
[2020-01-27 16:42] LABS: African American GFR (CKD) 113.8 (60.0-200.0); Calcium 9.8 mg/dL (8.7-10.3); Non-African American GFR(CKD) 98.2 (60.0-200.0)
[2020-01-27 16:50] LABS: Ferritin 49.1 ng/mL (10.0-291.0); Prolactin 6.4 ng/mL (2.8-29.2); T4, Free (Free Thyroxine) 1.5 ng/dL (0.80-1.80)
== END | disposition home or self-care (01) ==
LOC: LABWHC1 10:21
PROVIDERS: ATTEND Dermatology
DX: L65.0 Telogen effluvium (principal)
CPT/HCPCS: 36415; 82310; 82565; 82679; 82728; 83540; 84146; 84402; 84403; 84439; 84443; 84450; 84460; 84520; 85025; 86038

== ENCOUNTER 2020-05-05 01:44 | Emergency (ER) | payer OTHER ==
[2020-05-05 01:49] VITALS: BP 154/71; PULSE 72; RESP 18; TEMP 98
[2020-05-05] MEDS ORDERED: ACET/COD 300 MG/30 MG STARTER PACK 6 TAB BTL PO STA (02:01)
--- NOTE | 2020-05-05 02:16 | ED ---
Upper Extremity HPI - General Chief Complaint: Extremity Injury, Upper Stated Complaint: Arm Injury Time Seen by Provider: 05/05/20 01:57 Source: patient Mode of arrival: ambulatory Limitations: no limitations - History of Present Illness Initial Comments: 54-year-old female patient presents to the emergency department today for evaluation of right wrist pain and swelling. Patient states earlier this afternoon she was walking her daughter's dog when the leash got caught on her foot causing her to fall. States that she did reach her hand out to catch herself injuring the wrist. States that she did have some mild discomfort and swelling throughout the evening so she decided to come in and get it checked out. Patient denies hitting her head or losing consciousness during the fall. Denies any other injuries. She does deny numbness or tingling to the right hand. Denies previous injury to this wrist. Patient denies any headache, neck pain, back pain, chest pain, shortness of breath, dizziness, weakness, abdominal pain, nausea, vomiting, or difficulties with bowel movements or urination. - Related Data Home Medications Medication Instructions Recorded Confirmed Escitalopram [Lexapro] 20 mg PO DAILY 11/24/18 06/17/19 traZODone HCL 150 mg PO HS 11/24/18 06/17/19 Pantoprazole Sodium [Protonix] 40 mg PO DAILY 12/25/18 06/17/19 Biotin 5 mg PO DAILY 02/19/19 06/17/19 Previous Rx's Medication Instructions Recorded Ondansetron Odt [Zofran Odt] 4 mg PO Q8HR PRN #10 tab 06/18/19 Metoclopramide HCl [Reglan] 10 mg PO TID #12 tablet 12/10/19 Sucralfate [Carafate] 1 gm PO ACHS #12 tablet 12/10/19 Ibuprofen [Motrin] 600 mg PO Q8HR PRN #30 tab 05/05/20 Allergies Allergy/AdvReac Type Severity Reaction Status Date / Time prochlorperazine AdvReac Unknown Verified 05/05/20 01:49 [From Compazine] prochlorperazine edisylate AdvReac Unknown Verified 05/05/20 01:49 [From Compazine] prochlorperazine maleate AdvReac Unknown Verified 05/05/20 01:49 [From Compazine] Review of Systems ROS Statement: Those systems with pertinent positive or pertinent negative responses have been documented in the HPI. ROS Other: All systems not noted in ROS Statement are negative. Past Medical History Past Medical History: GERD/Reflux, Hypertension Additional Past Medical History / Comment(s): Past hypotension/bradycardia thought to be medication related, bowel obstruction with surgery, PUD with surgery, gastroparesis, chronic low back pain, DJD, heart murmur as a child. History of Any Multi-Drug Resistant Organisms: None Reported Past Surgical History: Bowel Resection Additional Past Surgical History / Comment(s): ani en y gastric bypass, gastric surgery for PUD, colonoscopy. Past Anesthesia/Blood Transfusion Reactions: No Reported Reaction Past Psychological History: Anxiety, Depression Smoking Status: Former smoker Past Alcohol Use History: Occasional Past Drug Use History: Marijuana - Past Family History Mother Family Medical History: GERD/Reflux, Hypertension Additional Family Medical History / Comment(s): Pt. reports her mother is overall healthy and is 81 years old. Father History Unknown: Yes Additional Family Medical History / Comment(s): father was shot and killed when pt was 10 years old. family Additional Family Medical History / Comment(s): denies any history of cancer or CAD in the family General Exam Limitations: no limitations General appearance: alert, in no apparent distress, other (This is a well-developed, well-nourished adult female patient in no acute distress. Vital signs upon presentation are temperature 98.0F, pulse 72, respirations 18, blood pressure 154/71, pulse ox 97% on room air.) Eye exam: Present: normal appearance, PERRL, EOMI. Absent: scleral icterus, conjunctival injection, periorbital swelling ENT exam: Present: normal exam, normal oropharynx, mucous membranes moist Neck exam: Present: normal inspection, full ROM, other (Nontender, no step-off, no deformity to firm midline palpation of the posterior cervical spine. Full range of motion without pain or limitation.). Absent: tenderness, meningismus, lymphadenopathy Respiratory exam: Present: normal lung sounds bilaterally. Absent: respiratory distress, wheezes, rales, rhonchi, stridor Cardiovascular Exam: Present: regular rate, normal rhythm, normal heart sounds. Absent: systolic murmur, diastolic murmur, rubs, gallop, clicks Extremities exam: Present: full ROM, tenderness (Tenderness over the distal radius and ulna), normal capillary refill, other (There is soft tissue swelling surrounding the right wrist. Skin is otherwise pink, warm, dry. Cap refills less than 3 seconds. Radial pulses are 2+ and equal bilaterally.). Absent: normal inspection, pedal edema, joint swelling, calf tenderness Back exam: Present: normal inspection, other (Nontender, no step-off, no deformity to firm midline palpation of the thoracic and lumbar vertebrae. Full range of motion without pain or limitation.). Absent: vertebral tenderness Neurological exam: Present: alert, oriented X3, CN II-XII intact Psychiatric exam: Present: normal affect, normal mood Skin exam: Present: warm, dry, intact, normal color. Absent: rash Course Vital Signs 05/05/20 01:45 Temperature 98 F Pulse Rate 72 Respiratory 18 Rate Blood Pressure 154/71 O2 Sat by Pulse 97 Oximetry Procedures - Orthopedic Splinting/Casting Injury #1 Side: right Upper Extremity Injury Location: wrist Upper Extremity Immobilizer: posterior splint, Kareem wrap Additional Comments: Neurovascular status intact after splint application. Skin to the right hand is pink, warm, dry. Cap refills less than 3 seconds. Patient denies numbness or tingling. Medical Decision Making - Medical Decision Making 54-year-old female patient presents to the emergency department today for evaluation of right wrist injury. Physical examination did reveal soft tissue swelling surrounding the right distal radius and ulna as well as tenderness over this region. Neurovascular status is intact. X-rays were obtained and did reveal a buckle fracture of the right distal radius and an ulnar styloid fracture. Patient was placed in a posterior OCL splint. She is instructed to follow-up with medicare contact specialist as soon as possible. She is instructed to call in the morning for an appointment. She is given prescription for ibuprofen for pain control. Return parameters were discussed in detail. She verbalizes understanding and agrees with this plan. - Radiology Data Radiology results: report reviewed, image reviewed 4 views of the right wrist are obtained. Report was reviewed in its entirety. Impression by Dr. Davis shows acute fractures of the distal radius and ulna as above. No significant displacement. Disposition Clinical Impression: Buckle fracture of distal end of right radius, Fracture of ulnar styloid Disposition: HOME SELF-CARE Condition: Good Instructions (If sedation given, give patient instructions): Arm Fracture in Adults (ED) Additional Instructions: Keep splint in place until follow up with the medicare contact specialist. Call in the morning for an appointment. Rest, ice, elevate the arm. Return to the emergency department immediately for any new, worsening, or concerning symptoms. Prescriptions: Ibuprofen [Motrin] 600 mg PO Q8HR PRN #30 tab PRN Reason: Pain Is patient prescribed a controlled substance at d/c from ED?: No Referrals: Александр Uribe DO [Primary Care Provider] - 1-2 days Milton Dwyer DO [Doctor of Osteopathic Medicine] - 1-2 days Time of Disposition: 02:15
--- NOTE | 2020-05-05 02:20 | XR ---
EXAMINATION TYPE: XR wrist complete RT DATE OF EXAM: 05/05/2020 COMPARISON: NONE HISTORY: Wrist pain. TECHNIQUE: 4 views FINDINGS: There is slightly impacted transverse fracture distal radial metaphysis. Fracture line exte nds to the radiocarpal joint. There is nondisplaced chip fracture of the ulnar styloid process. There is no dislocation. Carpal bones are intact. There is some spurring at the first carpometacarpal join t. IMPRESSION: Acute fractures of the distal radius and ulna as above. No significant displacement.
== END 2020-05-05 02:36 | disposition home or self-care (01) ==
LOC: EC 01:44
DX: S52.521A Torus fracture of lower end of right radius, initial encounter for closed fracture (principal); S52.611A Displaced fracture of right ulna styloid process, initial encounter for closed fracture; F41.9 Anxiety disorder, unspecified; F32.9 Major depressive disorder, single episode, unspecified; K21.9 Gastro-esophageal reflux disease without esophagitis; Z79.899 Other long term (current) drug therapy; Z87.891 Personal history of nicotine dependence; Z88.8 Allergy status to other drugs, medicaments and biological substances; W01.0XXA Fall on same level from slipping, tripping and stumbling without subsequent striking against object, initial encounter; Y93.K1 Activity, walking an animal
CPT/HCPCS: 29515; 99283

== ENCOUNTER 2020-10-16 10:30 | Day surgery (SDC) | payer OTHER ==
[2020-10-10 15:07] VITALS: BMI 23.0
[~2020-10-16 10:30] MED LIST: LACTATED RINGERS 1,000 ML IV SCH; LIDOCAINE 1% (10MG/ML) FOR IV START INTRADERMA PRN
[2020-10-16 10:55] VITALS: TEMP 98.6
[2020-10-16] MEDS ORDERED: LIDOCAINE 1% (10MG/ML) FOR IV START INTRADERMA ONE (11:00)
[2020-10-16] MEDS ORDERED: MIDAZOLAM 2 MG/2 ML VIAL ONE (11:03)
[2020-10-16] MEDS ORDERED: fentaNYL (PF) 50 MCG/ML 2 ML AMP ONE (11:03)
[2020-10-16] MEDS ORDERED: PROPOFOL 10 MG/ML 20 ML VIAL IV ONE (11:03)
--- NOTE | 2020-10-16 11:40 | P.PCN ---
Date of Procedure: 10/16/20 Description of Procedure: BRIEF HISTORY: Patient is a 55-year-old female presenting for outpatient colonoscopy for evaluation of positive Cologard/other fecal abnormalities. She reports a remote history of colonoscopy. No change in bowel habits, blood per rectum or abdominal pain. No family history of colon cancer. PROCEDURE PERFORMED: Colonoscopy. PREOPERATIVE DIAGNOSIS: Positive Cologard, other cecal abnormalities, remote history of colonoscopy. ESTIMATED BLOOD LOSS: Minimal. IV sedation per Anesthesia. PROCEDURE: After informed consent was obtained, the patient, was brought into the endoscopy unit. IV sedation was administered by Anesthesia under continuous monitoring. Digital rectal examination was normal. Initially the Olympus CF-190 flexible video colonoscope was then inserted in the rectum, gradually advanced into the cecum without any difficulty. Careful examination was performed as the scope was gradually being withdrawn. Ileocecal valve and the appendiceal orifice were visualized and appeared normal. Prep was excellent. Mucosa of the terminal ileum, cecum, ascending colon, transverse colon, descending colon, sigmoid colon, and rectum appeared normal. A few scattered diverticula noted in the sigmoid colon. Low-grade internal hemorrhoids. Retroflexion was performed in the rectum and no lesions were seen. The patient tolerated the procedure well. IMPRESSION: Normal-appearing colon from rectum to cecum and normal-appearing terminal ileum. Mild sigmoid diverticulosis. Low-grade internal hemorrhoids. RECOMMENDATIONS: Findings of this examination were discussed with the patient . Okay to resume diet. Okay to resume medications. Recommend repeat colonoscopy in 10 years for screening or repeat Cologard in 3 years.
[2020-10-16 11:56] VITALS: BP 106/67; PULSE 68; RESP 18
== END 2020-10-16 12:16 | disposition home or self-care (01) ==
LOC: ORWHC2ENDO 10:30
PROVIDERS: ATTEND Internal Medicine
DX: K57.30 Diverticulosis of large intestine without perforation or abscess without bleeding (principal); K64.8 Other hemorrhoids; I10 Essential (primary) hypertension; F41.9 Anxiety disorder, unspecified; F32.9 Major depressive disorder, single episode, unspecified; M54.9 Dorsalgia, unspecified; K21.9 Gastro-esophageal reflux disease without esophagitis; K31.84 Gastroparesis; Z87.891 Personal history of nicotine dependence; Z88.8 Allergy status to other drugs, medicaments and biological substances; Z79.899 Other long term (current) drug therapy; Z98.890 Other specified postprocedural states; Z97.2 Presence of dental prosthetic device (complete) (partial); Z90.49 Acquired absence of other specified parts of digestive tract; Z90.3 Acquired absence of stomach [part of]
CPT/HCPCS: 45378; J2250; J3010; J2704

== ENCOUNTER 2021-03-26 11:26 | Emergency (ER) | payer OTHER ==
[2021-03-26 11:29] VITALS: BP 139/70; PULSE 85; RESP 18; TEMP 97.5
[2021-03-26] MEDS ORDERED: HYDROcodone/APAP 7.5-325MG 1 EACH TAB PO ONE (11:36)
--- NOTE | 2021-03-26 11:38 | ED ---
Fall HPI - General Chief Complaint: Fall Stated Complaint: back pain Time Seen by Provider: 03/26/21 11:33 Source: patient, RN notes reviewed Mode of arrival: ambulatory Limitations: no limitations - History of Present Illness Initial Comments: This a 55-year-old female presents emergency Department chief complaint of left- sided rib pain. Patient states that she was leaving her apartment with her bike states that she stepped on a small toy fell back onto a ledge of the TV stand. Patient complains of bruising, pain last couple days. Patient does not feel short of breath no head injury no loss conscious no abdominal pain no hematuria. - Related Data Home Medications Medication Instructions Recorded Confirmed Escitalopram [Lexapro] 20 mg PO DAILY 11/24/18 03/26/21 traZODone HCL 150 mg PO HS 11/24/18 03/26/21 Pantoprazole Sodium [Protonix] 40 mg PO DAILY 12/25/18 03/26/21 Ppa-Vlcc-Cmltw Acid 1 cap PO DAILY 03/26/21 03/26/21 [-U Capsule (formulary)] Allergies Allergy/AdvReac Type Severity Reaction Status Date / Time prochlorperazine AdvReac restless Verified 03/26/21 12:03 [From Compazine] leg prochlorperazine edisylate AdvReac restless Verified 03/26/21 12:03 [From Compazine] leg prochlorperazine maleate AdvReac restless Verified 03/26/21 12:03 [From Compazine] leg Review of Systems ROS Statement: Those systems with pertinent positive or pertinent negative responses have been documented in the HPI. ROS Other: All systems not noted in ROS Statement are negative. Past Medical History Past Medical History: GERD/Reflux, Hypertension Additional Past Medical History / Comment(s): Past hypotension/bradycardia thought to be medication related, bowel obstruction with surgery, PUD with surgery, gastroparesis, chronic low back pain, DJD, heart murmur as a child. History of Any Multi-Drug Resistant Organisms: None Reported Past Surgical History: Bowel Resection Additional Past Surgical History / Comment(s): ani en y gastric bypass,partial gastectomy, colonoscopy. Past Anesthesia/Blood Transfusion Reactions: No Reported Reaction Past Psychological History: Anxiety, Depression Smoking Status: Former smoker Past Alcohol Use History: Occasional Past Drug Use History: Marijuana - Past Family History Mother Family Medical History: GERD/Reflux, Hypertension Additional Family Medical History / Comment(s): Pt. reports her mother is overall healthy and is 81 years old. Father History Unknown: Yes Additional Family Medical History / Comment(s): father was shot and killed when pt was 10 years old. family Additional Family Medical History / Comment(s): denies any history of cancer or CAD in the family General Exam Limitations: no limitations General appearance: alert, in no apparent distress Head exam: Present: atraumatic, normocephalic, normal inspection ENT exam: Present: normal exam, normal oropharynx, mucous membranes moist Neck exam: Present: normal inspection, full ROM. Absent: tenderness, lymphadenopathy Respiratory exam: Present: normal lung sounds bilaterally, chest wall tenderness (Moderate left lateral to posterior rib tenderness, ecchymosis noted). Absent: respiratory distress, wheezes, rales, rhonchi, stridor Extremities exam: Present: normal inspection, full ROM, normal capillary refill. Absent: tenderness, pedal edema, joint swelling, calf tenderness Back exam: Present: normal inspection, full ROM. Absent: tenderness Neurological exam: Present: alert, oriented X3, CN II-XII intact Skin exam: Present: warm, dry, intact, normal color. Absent: rash Course Vital Signs 03/26/21 11:27 Temperature 97.5 F L Pulse Rate 85 Respiratory 18 Rate Blood Pressure 139/70 O2 Sat by Pulse 97 Oximetry Medical Decision Making - Medical Decision Making X-ray does not reveal any evidence of acute fracture of her ribs. There may be a small nondisplaced was not identified. Patient has no evidence of pneumothorax will be discharged with [Tylenol codeine and return parameters were discussed. Disposition Clinical Impression: Fall, Contusion of rib on left side Disposition: HOME SELF-CARE Condition: Stable Instructions (If sedation given, give patient instructions): Rib Contusion (ED) Additional Instructions: Please return to the Emergency Department if symptoms worsen or any other concerns. Is patient prescribed a controlled substance at d/c from ED?: No Referrals: Александр Uribe DO [Primary Care Provider] - 1-2 days Time of Disposition: 12:16
--- NOTE | 2021-03-26 11:59 | XR ---
EXAMINATION TYPE: XR ribs LT w pa chest xray DATE OF EXAM: 03/26/2021 COMPARISON: 06/19/2018 HISTORY: Pain TECHNIQUE: Frontal view of the chest and 2 views of the left ribs are submitted. FINDINGS: Heart size normal. No pneumothorax. No pleural effusion or consolidation. Osseous structure s intact. IMPRESSION: No acute displaced rib fracture.
[2021-03-26] MEDS ORDERED: ACET/COD 300 MG/30 MG STARTER PACK 6 TAB BTL PO STA (12:16)
== END 2021-03-26 12:32 | disposition home or self-care (01) ==
LOC: EC 11:26
DX: S20.212A Contusion of left front wall of thorax, initial encounter (principal); K21.9 Gastro-esophageal reflux disease without esophagitis; I10 Essential (primary) hypertension; F41.9 Anxiety disorder, unspecified; F32.9 Major depressive disorder, single episode, unspecified; F12.90 Cannabis use, unspecified, uncomplicated; Z98.84 Bariatric surgery status; Z87.891 Personal history of nicotine dependence; W18.31XA Fall on same level due to stepping on an object, initial encounter; Y92.039 Unspecified place in apartment as the place of occurrence of the external cause
CPT/HCPCS: 99283

== ENCOUNTER 2022-05-15 16:46 | Emergency (ER) | payer OTHER ==
[2022-05-15 17:13] VITALS: RESP 16; TEMP 97.9
[2022-05-15] MEDS ORDERED: SODIUM CHLORIDE 0.9% 1,000 ML IV STA (19:05)
[2022-05-15] MEDS ORDERED: ONDANSETRON 4 MG/2 ML VIAL IVP STA (19:05)
[2022-05-15] MEDS ORDERED: PANTOPRAZOLE 40 MG/10 ML VIAL IVP STA (19:05)
--- NOTE | 2022-05-15 19:12 | ED ---
Abdominal Pain HPI - General Chief Complaint: Abdominal Pain Stated Complaint: Abd Pain/Vomited blood Time Seen by Provider: 05/15/22 18:55 Source: patient, RN notes reviewed Mode of arrival: ambulatory Limitations: no limitations - History of Present Illness Initial Comments: This is a pleasant 56-year-old female who comes the ER complaining of hematemesis. Patient states it started this morning after she drank some juice and had some epigastric pain. She described sharp pain located in the epigastrium without radiation. No alleviating or exacerbating factors. Patient states she did have an episode of vomiting with what she is describing as relatively bright red blood. Patient does have a history of multiple gastric ulcers. Patient has had surgery here and subsequently was sent down to [place] for follow-up surgery. This was 5 years ago. Patient does take a proton pump inhibitor. She denies any NSAID or aspirin use. Patient denies any chest pain or shortness of breath. No melena or hematochezia. No headache, no fever or chills, no changes in vision or hearing, no sore throat or difficulty with speech, no neck pain, no chest pain or shortness of breath, no changes in urination or bowel movements, no numbness or tingling, no extremity pain, no skin rashes or lesions. - Related Data Home Medications Medication Instructions Recorded Confirmed Escitalopram [Lexapro] 20 mg PO DAILY 11/24/18 05/15/22 traZODone HCL 150 mg PO HS 11/24/18 05/15/22 Pantoprazole Sodium [Protonix] 40 mg PO DAILY 12/25/18 05/15/22 Ammonium Lactate Cream [Lac-Hydrin 1 applic TOPICAL BID PRN 05/15/22 05/15/22 12% Cream] Fluticasone Nasal [place] [Flonase 1 spray EA NOSTRIL DAILY 05/15/22 05/15/22 Nasal [place]] Ondansetron [Zofran] 4 mg PO Q8HR PRN 05/15/22 05/15/22 Allergies Allergy/AdvReac Type Severity Reaction Status Date / Time prochlorperazine AdvReac restless Verified 05/15/22 21:24 [From Compazine] leg prochlorperazine edisylate AdvReac restless Verified 05/15/22 21:24 [From Compazine] leg prochlorperazine maleate AdvReac restless Verified 05/15/22 21:24 [From Compazine] leg Review of Systems ROS Statement: Those systems with pertinent positive or pertinent negative responses have been documented in the HPI. ROS Other: All systems not noted in ROS Statement are negative. Past Medical History Past Medical History: GERD/Reflux, Hypertension Additional Past Medical History / Comment(s): Past hypotension/bradycardia thought to be medication related, bowel obstruction with surgery, PUD with surgery, gastroparesis, chronic low back pain, DJD, heart murmur as a child. History of Any Multi-Drug Resistant Organisms: None Reported Past Surgical History: Bowel Resection Additional Past Surgical History / Comment(s): ani en y gastric bypass,partial gastectomy, colonoscopy. Past Anesthesia/Blood Transfusion Reactions: No Reported Reaction Past Psychological History: Anxiety, Depression Smoking Status: Former smoker Past Alcohol Use History: Occasional Past Drug Use History: Marijuana - Past Family History Mother Family Medical History: GERD/Reflux, Hypertension Additional Family Medical History / Comment(s): Pt. reports her mother is overall healthy and is 81 years old. Father History Unknown: Yes Additional Family Medical History / Comment(s): father was shot and killed when pt was 10 years old. family Additional Family Medical History / Comment(s): denies any history of cancer or CAD in the family General Exam - General Exam Comments Initial Comments: Well-developed, well-nourished 56-year-old female in no significant distress at the time of seeing her. Vital signs reviewed Limitations: no limitations General appearance: alert, in no apparent distress Head exam: Present: atraumatic, normocephalic, normal inspection Eye exam: Present: normal appearance, PERRL, EOMI. Absent: scleral icterus, co njunctival injection, periorbital swelling ENT exam: Present: normal exam, mucous membranes moist Neck exam: Present: normal inspection, full ROM. Absent: tenderness, meningismus, lymphadenopathy Respiratory exam: Present: normal lung sounds bilaterally. Absent: respiratory distress, wheezes, rales, rhonchi, stridor, chest wall tenderness, accessory muscle use Cardiovascular Exam: Present: regular rate, normal rhythm, normal heart sounds. Absent: systolic murmur, diastolic murmur, rubs, gallop, clicks GI/Abdominal exam: Present: soft, tenderness (Epigastrium), normal bowel sounds. Absent: distended, guarding, rebound, rigid Extremities exam: Present: normal inspection, full ROM, normal capillary refill. Absent: tenderness, pedal edema, joint swelling, calf tenderness Back exam: Present: normal inspection Neurological exam: Present: alert, oriented X3, CN II-XII intact Psychiatric exam: Present: normal affect, normal mood Skin exam: Present: warm, dry, intact, normal color. Absent: rash Course Vital Signs 05/15/22 17:11 Temperature 97.9 F Pulse Rate 74 Respiratory 16 Rate Blood Pressure 135/65 O2 Sat by Pulse 99 Oximetry - Reevaluation(s) Reevaluation #1: 05/15/22 22:20 Patient was reevaluated several times about the course of stay. Patient continued to have epigastric discomfort. However the patient had no subsequent bouts of hematemesis. Hemoglobin did drop by a little over 1. She remained hemodynamically stable - Consultations Consultation #1: Patient's recheck hemoglobin is 11.1, this is a drop from 12.2 on initial evaluation. Hematocrit has dropped from 37.9-33.8. This may be delusional however this was only over the course of a few hours. Patient having si gnificant epigastric discomfort. The plan for transfer to [facility] where the patient has had previous surgical intervention. Case discussed with the ED physician at [facility] - Medical Decision Making She has a history of peptic ulcer disease, patient has no history of esophageal varices. Patient is former alcohol user and former cigarette smoker. She had a revision of Ani-en-Y surgery at [facility] 5 years ago. Patient will be transferred under for hospital for upper gastrointestinal bleeding. Patient previously has had surgery at this facility. Discussed transfer. Patient consents to transfer. Case discussed with the ED physician, Dr. Jade, and [facility] Puentes, transferred accepted The case was discussed in detail with ED attending physician. Presentation, findings, treatment plan discussed in detail. Embedder Dr. Reynoso - Lab Data Result diagrams: 05/15/22 21:07 05/15/22 19:11 Lab Results 05/15/22 05/15/22 05/15/22 Range/Units 19:11 19:11 19:11 WBC 7.7 (3.8-10.6) k/uL RBC 3.72 L (3.80-5.40) m/uL Hgb 12.2 (11.4-16.0) gm/dL Hct 37.9 (34.0-46.0) % MCV 102.1 H (80.0-100.0) fL MCH 32.9 (25.0-35.0) pg MCHC 32.2 (31.0-37.0) g/dL RDW 12.6 (11.5-15.5) % Plt Count 302 (150-450) k/uL MPV 7.8 Neutrophils % 66 % Lymphocytes % 23 % Monocytes % 6 % Eosinophils % 3 % Basophils % 1 % Neutrophils # 5.0 (1.3-7.7) k/uL Lymphocytes # 1.7 (1.0-4.8) k/uL Monocytes # 0.5 (0-1.0) k/uL Eosinophils # 0.2 (0-0.7) k/uL Basophils # 0.1 (0-0.2) k/uL Macrocytosis Slight PT 10.5 (9.0-12.0) sec INR 1.0 (<1.2) APTT 22.6 (22.0-30.0) sec Sodium (137-145) mmol/L Potassium (3.5-5.1) mmol/L Chloride (98-107) mmol/L Carbon Dioxide (22-30) mmol/L Anion Gap mmol/L BUN (7-17) mg/dL Creatinine (0.52-1.04) mg/dL Est GFR (CKD-EPI)AfAm (>60 ml/min/1.73 sqM) Est GFR (CKD-EPI)NonAf (>60 ml/min/1.73 sqM) Glucose (74-99) mg/dL Plasma Lactic Acid Danial (0.7-2.0) mmol/L Calcium (8.4-10.2) mg/dL Total Bilirubin (0.2-1.3) mg/dL AST (14-36) U/L ALT (4-34) U/L Alkaline Phosphatase (38-126) U/L Total Protein (6.3-8.2) g/dL Albumin (3.5-5.0) g/dL Lipase (23-300) U/L Stool Occult Blood Negative (Negative) Blood Type Blood Type Recheck Bld Type Recheck Status Antibody Screen Spec Expiration Date 05/15/22 05/15/22 05/15/22 Range/Units 19:11 19:11 19:11 WBC (3.8-10.6) k/uL RBC (3.80-5.40) m/uL Hgb (11.4-16.0) gm/dL Hct (34.0-46.0) % MCV (80.0-100.0) fL MCH (25.0-35.0) pg MCHC (31.0-37.0) g/dL RDW (11.5-15.5) % Plt Count (150-450) k/uL MPV Neutrophils % % Lymphocytes % % Monocytes % % Eosinophils % % Basophils % % Neutrophils # (1.3-7.7) k/uL Lymphocytes # (1.0-4.8) k/uL Monocytes # (0-1.0) k/uL Eosinophils # (0-0.7) k/uL Basophils # (0-0.2) k/uL Macrocytosis PT (9.0-12.0) sec INR (<1.2) APTT (22.0-30.0) sec Sodium 137 (137-145) mmol/L Potassium 4.0 (3.5-5.1) mmol/L Chloride 104 (98-107) mmol/L Carbon Dioxide 26 (22-30) mmol/L Anion Gap 7 mmol/L BUN 17 (7-17) mg/dL Creatinine 0.68 (0.52-1.04) mg/dL Est GFR (CKD-EPI)AfAm >90 (>60 ml/min/1.73 sqM) Est GFR (CKD-EPI)NonAf >90 (>60 ml/min/1.73 sqM) Glucose 115 H (74-99) mg/dL Plasma Lactic Acid Danial 1.1 (0.7-2.0) mmol/L Calcium 8.8 (8.4-10.2) mg/dL Total Bilirubin 0.3 (0.2-1.3) mg/dL AST 36 (14-36) U/L ALT 27 (4-34) U/L Alkaline Phosphatase 85 (38-126) U/L Total Protein 6.5 (6.3-8.2) g/dL Albumin 4.2 (3.5-5.0) g/dL Lipase 55 (23-300) U/L Stool Occult Blood (Negative) Blood Type O Positive Blood Type Recheck O Pos Bld Type Recheck Status No Antibody Screen NEGATIVE Spec Expiration Date 05/18/2022 - 231005/15/22 Range/Units 21:07 WBC 6.2 (3.8-10.6) k/uL RBC 3.30 L (3.80-5.40) m/uL Hgb 11.1 L (11.4-16.0) gm/dL Hct 33.8 L (34.0-46.0) % MCV 102.4 H (80.0-100.0) fL MCH 33.7 (25.0-35.0) pg MCHC 32.9 (31.0-37.0) g/dL RDW 12.7 (11.5-15.5) % Plt Count 207 (150-450) k/uL MPV 8.8 Neutrophils % % Lymphocytes % % Monocytes % % Eosinophils % % Basophils % % Neutrophils # (1.3-7.7) k/uL Lymphocytes # (1.0-4.8) k/uL Monocytes # (0-1.0) k/uL Eosinophils # (0-0.7) k/uL Basophils # (0-0.2) k/uL Macrocytosis Slight PT (9.0-12.0) sec INR (<1.2) APTT (22.0-30.0) sec Sodium (137-145) mmol/L Potassium (3.5-5.1) mmol/L Chloride (98-107) mmol/L Carbon Dioxide (22-30) mmol/L Anion Gap mmol/L BUN (7-17) mg/dL Creatinine (0.52-1.04) mg/dL Est GFR (CKD-EPI)AfAm (>60 ml/min/1.73 sqM) Est GFR (CKD-EPI)NonAf (>60 ml/min/1.73 sqM) Glucose (74-99) mg/dL Plasma Lactic Acid Danial (0.7-2.0) mmol/L Calcium (8.4-10.2) mg/dL Total Bilirubin (0.2-1.3) mg/dL AST (14-36) U/L ALT (4-34) U/L Alkaline Phosphatase (38-126) U/L Total Protein (6.3-8.2) g/dL Albumin (3.5-5.0) g/dL Lipase (23-300) U/L Stool Occult Blood (Negative) Blood Type Blood Type Recheck Bld Type Recheck Status Antibody Screen Spec Expiration Date Disposition Clinical Impression: Upper gastrointestinal bleeding, Gastritis, Epigastric abdominal pain Disposition: OTHER INSTITUTION NOT DEFINED Condition: Stable Referrals: None,Stated [REFERRING] - 1-2 days - Out of Hospital Transfer - Req. Specs Out of Hospital Transfer - Requested Specifics: Other Emergency Center
[2022-05-15 19:29] LABS: Basophils # (A) 0.1 k/uL (0-0.2); Basophils % (A) 1 %; Eosinophils # (A) 0.2 k/uL (0-0.7); Eosinophils % (A) 3 %; HCT 37.9 % (34.0-46.0); HGB 12.2 gm/dL (11.4-16.0); Lymphocytes # (A) 1.7 k/uL (1.0-4.8); Lymphocytes % (A) 23 %; MCH 32.9 pg (25.0-35.0); MCHC 32.2 g/dL (31.0-37.0); MCV 102.1 fL (80.0-100.0); Macrocytosis Slight; Mean Platelet Volume 7.8; Monocytes # (A) 0.5 k/uL (0-1.0); Monocytes % (A) 6 %; Neutrophils % (A) 66 %; Platelet Count 302 k/uL (150-450); RBC 3.72 m/uL (3.80-5.40); RDW 12.6 % (11.5-15.5); WBC 7.7 k/uL (3.8-10.6)
[2022-05-15] MEDS ORDERED: MORPHINE SULFATE 4 MG/ML SYRINGE IV STA (19:30)
[2022-05-15 19:36] LABS: ALT 27 U/L (4-34); AST 36 U/L (14-36); African American GFR (CKD) >90 (>60 ml/min/1.73 sqM); Albumin 4.2 g/dL (3.5-5.0); Alkaline Phosphatase 85 U/L (38-126); Anion Gap 7 mmol/L; Blood Urea Nitrogen 17 mg/dL (7-17); Calcium 8.8 mg/dL (8.4-10.2); Carbon Dioxide 26 mmol/L (22-30); Chloride 104 mmol/L (98-107); Glucose 115 mg/dL (74-99); Lipase 55 U/L (23-300); Non-African American GFR(CKD) >90 (>60 ml/min/1.73 sqM); Sodium 137 mmol/L (137-145); Total Bilirubin 0.3 mg/dL (0.2-1.3); Total Protein 6.5 g/dL (6.3-8.2)
[2022-05-15 19:37] LABS: Partial Thromboplastin Time 22.6 sec (22.0-30.0); Prothrombin Time 10.5 sec (9.0-12.0)
[2022-05-15 21:32] LABS: HCT 33.8 % (34.0-46.0); HGB 11.1 gm/dL (11.4-16.0); MCH 33.7 pg (25.0-35.0); MCHC 32.9 g/dL (31.0-37.0); MCV 102.4 fL (80.0-100.0); Macrocytosis Slight; Mean Platelet Volume 8.8; Platelet Count 207 k/uL (150-450); RDW 12.7 % (11.5-15.5); WBC 6.2 k/uL (3.8-10.6)
[2022-05-15] MEDS ORDERED: HYDROcodone/APAP 5-325MG 1 EACH TAB PO STA (21:44)
[2022-05-15 23:43] VITALS: BP 108/73; PULSE 55
== END 2022-05-15 23:30 | disposition other institution (70) ==
LOC: EC 16:46
DX: K29.71 Gastritis, unspecified, with bleeding (principal); I10 Essential (primary) hypertension; K21.9 Gastro-esophageal reflux disease without esophagitis; Z79.83 Long term (current) use of bisphosphonates; Z87.81 Personal history of (healed) traumatic fracture; Z88.9 Allergy status to unspecified drugs, medicaments and biological substances
CPT/HCPCS: 36415; 86900; 86901; 80053; 83605; 83690; 85025; 85027; 85610; 85730; 86850; 82272; 99284; 96374; 96375; 96361; J2270; J2405; C9113

== ENCOUNTER 2022-07-28 12:22 | Inpatient (IN) | payer MEDICAID, OTHER ==
--- NOTE | 2022-07-28 14:11 | ED ---
General Adult HPI - General Chief complaint: Psychiatric Symptoms Stated complaint: mental health Time Seen by Provider: 07/28/22 13:59 Source: patient, RN notes reviewed Mode of arrival: ambulatory Limitations: no limitations - History of Present Illness Initial comments: Patient is a pleasant 57-year-old female presenting to the emergency department for depression. Patient states symptoms have been present for the past week. Patient does have suicidal thoughts. Patient denies homicidal thoughts. Patient does admit to drinking some alcohol today. No street drug use. Patient does not normally drink much alcohol. No hallucinations. No physical complaints. - Related Data Home Medications Medication Instructions Recorded Confirmed Escitalopram [Lexapro] 20 mg PO DAILY 11/24/18 07/28/22 traZODone HCL 150 mg PO HS 11/24/18 07/28/22 Pantoprazole Sodium [Protonix] 40 mg PO BID 12/25/18 07/28/22 Ammonium Lactate Cream [Lac-Hydrin 1 applic TOPICAL BID PRN 05/15/22 07/28/22 12% Cream] Fluticasone Nasal [place] [Flonase 1 spray EA NOSTRIL DAILY PRN 05/15/22 07/28/22 Nasal [place]] Previous Rx's Medication Instructions Recorded Cyclobenzaprine [Flexeril] 10 mg PO TID PRN #12 tablet 07/13/22 Allergies Allergy/AdvReac Type Severity Reaction Status Date / Time prochlorperazine AdvReac restless Verified 07/28/22 13:58 [From Compazine] leg prochlorperazine edisylate AdvReac restless Verified 07/28/22 13:58 [From Compazine] leg prochlorperazine maleate AdvReac restless Verified 07/28/22 13:58 [From Compazine] leg Review of Systems ROS Statement: Those systems with pertinent positive or pertinent negative responses have been documented in the HPI. ROS Other: All systems not noted in ROS Statement are negative. Constitutional: Denies: fever Eyes: Denies: eye pain ENT: Denies: ear pain Respiratory: Denies: cough Cardiovascular: Denies: chest pain Endocrine: Denies: fatigue Gastrointestinal: Denies: abdominal pain Genitourinary: Denies: dysuria Musculoskeletal: Denies: back pain Skin: Denies: rash Neurological: Denies: weakness Psychiatric: Reports: depression, suicidal thoughts Past Medical History Past Medical History: GERD/Reflux, Hypertension Additional Past Medical History / Comment(s): Past hypotension/bradycardia thought to be medication related, bowel obstruction with surgery, PUD with surgery, gastroparesis, chronic low back pain, DJD, heart murmur as a child. History of Any Multi-Drug Resistant Organisms: None Reported Past Surgical History: Bowel Resection Additional Past Surgical History / Comment(s): ani en y gastric bypass,partial gastectomy, colonoscopy. Past Anesthesia/Blood Transfusion Reactions: No Reported Reaction Past Psychological History: Anxiety, Depression Smoking Status: Former smoker Past Alcohol Use History: Occasional Past Drug Use History: Marijuana - Past Family History Mother Family Medical History: GERD/Reflux, Hypertension Additional Family Medical History / Comment(s): Pt. reports her mother is overall healthy and is 81 years old. Father History Unknown: Yes Additional Family Medical History / Comment(s): father was shot and killed when pt was 10 years old. family Additional Family Medical History / Comment(s): denies any history of cancer or CAD in the family General Exam Limitations: no limitations General appearance: alert, in no apparent distress Head exam: Present: normocephalic Eye exam: Present: normal appearance Neck exam: Present: normal inspection Respiratory exam: Present: normal lung sounds bilaterally Cardiovascular Exam: Present: regular rate, normal rhythm GI/Abdominal exam: Present: soft. Absent: tenderness Neurological exam: Present: alert Psychiatric exam: Present: depressed Skin exam: Present: normal color Course Vital Signs 07/28/22 07/28/22 07/28/22 13:52 15:15 15:40 Temperature 98.1 F 98.0 F Pulse Rate 105 H 68 74 Respiratory 20 18 18 Rate Blood Pressure 120/67 101/64 O2 Sat by Pulse 100 100 Oximetry 07/28/22 07/28/22 07/28/22 16:09 17:00 18:00 Temperature Pulse Rate 74 77 85 Respiratory 18 18 17 Rate Blood Pressure 97/58 105/58 101/58 O2 Sat by Pulse 100 100 98 Oximetry 07/28/22 07/28/22 19:00 20:00 Temperature Pulse Rate 84 86 Respiratory 18 16 Rate Blood Pressure 107/65 114/59 O2 Sat by Pulse 98 100 Oximetry EKG Findings - EKG Comments: EKG Findings:: Sinus rhythm 3-80. VT 134. QRS 94. QT 417. QTC 453. Normal axis. Normal QRS. No acute ST change. Medical Decision Making - Lab Data Result diagrams: 07/28/22 15:57 07/28/22 15:57 Lab Results 07/28/22 07/28/22 07/28/22 Range/Units 14:25 15:57 15:57 WBC 4.2 (3.8-10.6) k/uL RBC 3.44 L (3.80-5.40) m/uL Hgb 11.4 (11.4-16.0) gm/dL Hct 34.6 (34.0-46.0) % MCV 100.6 H (80.0-100.0) fL MCH 33.2 (25.0-35.0) pg MCHC 33.0 (31.0-37.0) g/dL RDW 13.8 (11.5-15.5) % Plt Count 236 (150-450) k/uL MPV 7.6 Neutrophils % 43 % Lymphocytes % 44 % Monocytes % 4 % Eosinophils % 4 % Basophils % 1 % Neutrophils # 1.8 (1.3-7.7) k/uL Lymphocytes # 1.8 (1.0-4.8) k/uL Monocytes # 0.2 (0-1.0) k/uL Eosinophils # 0.2 (0-0.7) k/uL Basophils # 0.0 (0-0.2) k/uL Macrocytosis Slight Sodium 143 (137-145) mmol/L Potassium 3.7 (3.5-5.1) mmol/L Chloride 109 H (98-107) mmol/L Carbon Dioxide 22 (22-30) mmol/L Anion Gap 12 mmol/L BUN 16 (7-17) mg/dL Creatinine 0.52 (0.52-1.04) mg/dL Est GFR (CKD-EPI)AfAm >90 (>60 ml/min/1.73 sqM) Est GFR (CKD-EPI)NonAf >90 (>60 ml/min/1.73 sqM) Glucose 93 (74-99) mg/dL Estimated Ave Glu mg/dL Hemoglobin A1c (0.0-6.0) % Calcium 7.9 L (8.4-10.2) mg/dL Total Bilirubin 0.5 (0.2-1.3) mg/dL AST 44 H (14-36) U/L ALT 28 (4-34) U/L Alkaline Phosphatase 102 (38-126) U/L Total Protein 5.5 L (6.3-8.2) g/dL Albumin 3.4 L (3.5-5.0) g/dL Triglycerides (0.00-149.00) mg/dL Cholesterol (0.00-200.00) mg/dL LDL Cholesterol, Calc (0.0-131.0) mg/dL VLDL Cholesterol, Calc (5.00-40.00) mg/dL HDL Cholesterol (40.00-60.00) mg/dL Cholesterol/HDL Ratio Ratio TSH (0.465-4.680) mIU/L Salicylates <1.0 mg/dL Urine Opiates Screen Not Detected (NotDetected) Ur Oxycodone Screen Not Detected (NotDetected) Urine Methadone Screen Not Detected (NotDetected) Ur Propoxyphene Screen Not Detected (NotDetected) Acetaminophen <10.0 ug/mL Ur Barbiturates Screen Not Detected (NotDetected) U Tricyclic Antidepress Not Detected (NotDetected) Ur Phencyclidine Scrn Not Detected (NotDetected) Ur Amphetamines Screen Not Detected (NotDetected) U Methamphetamines Scrn Not Detected (NotDetected) U Benzodiazepines Scrn Not Detected (NotDetected) Urine Cocaine Screen Not Detected (NotDetected) U Marijuana (THC) Screen Detected H (NotDetected) Coronavirus (PCR) (Not Detectd) 07/28/22 07/28/22 07/28/22 Range/Units 15:57 15:57 19:53 WBC (3.8-10.6) k/uL RBC (3.80-5.40) m/uL Hgb (11.4-16.0) gm/dL Hct (34.0-46.0) % MCV (80.0-100.0) fL MCH (25.0-35.0) pg MCHC (31.0-37.0) g/dL RDW (11.5-15.5) % Plt Count (150-450) k/uL MPV Neutrophils % % Lymphocytes % % Monocytes % % Eosinophils % % Basophils % % Neutrophils # (1.3-7.7) k/uL Lymphocytes # (1.0-4.8) k/uL Monocytes # (0-1.0) k/uL Eosinophils # (0-0.7) k/uL Basophils # (0-0.2) k/uL Macrocytosis Sodium (137-145) mmol/L Potassium (3.5-5.1) mmol/L Chloride (98-107) mmol/L Carbon Dioxide (22-30) mmol/L Anion Gap mmol/L BUN (7-17) mg/dL Creatinine (0.52-1.04) mg/dL Est GFR (CKD-EPI)AfAm (>60 ml/min/1.73 sqM) Est GFR (CKD-EPI)NonAf (>60 ml/min/1.73 sqM) Glucose (74-99) mg/dL Estimated Ave Glu mg/dL 118 Hemoglobin A1c 5.7 (0.0-6.0) % Calcium (8.4-10.2) mg/dL Total Bilirubin (0.2-1.3) mg/dL AST (14-36) U/L ALT (4-34) U/L Alkaline Phosphatase (38-126) U/L Total Protein (6.3-8.2) g/dL Albumin (3.5-5.0) g/dL Triglycerides 369.00 H (0.00-149.00) mg/dL Cholesterol 145.00 (0.00-200.00) mg/dL LDL Cholesterol, Calc 19.8 (0.0-131.0) mg/dL VLDL Cholesterol, Calc 73.80 H (5.00-40.00) mg/dL HDL Cholesterol 51.40 (40.00-60.00) mg/dL Cholesterol/HDL Ratio 2.82 Ratio TSH 1.570 (0.465-4.680) mIU/L Salicylates mg/dL Urine Opiates Screen (NotDetected) Ur Oxycodone Screen (NotDetected) Urine Methadone Screen (NotDetected) Ur Propoxyphene Screen (NotDetected) Acetaminophen ug/mL Ur Barbiturates Screen (NotDetected) U Tricyclic Antidepress (NotDetected) Ur Phencyclidine Scrn (NotDetected) Ur Amphetamines Screen (NotDetected) U Methamphetamines Scrn (NotDetected) U Benzodiazepines Scrn (NotDetected) Urine Cocaine Screen (NotDetected) U Marijuana (THC) Screen (NotDetected) Coronavirus (PCR) Not Detected (Not Detectd) Disposition Clinical Impression: Depression Disposition: TRANSFER TO PSYCH HOSP/UNIT Is patient prescribed a controlled substance at d/c from ED?: No
[2022-07-28 15:04] LABS: Amphetamine Screen,Urine Not Detected (NotDetected); Barbiturate Screen,Urine Not Detected (NotDetected); Benzodiazepines Screen,Urine Not Detected (NotDetected); Cocaine Screen,Urine Not Detected (NotDetected); Methadone Screen, Urine Not Detected (NotDetected); Opiate Screen,Urine Not Detected (NotDetected); Oxycodone Screen, Urine Not Detected (NotDetected); Phencyclidine Screen,Urine Not Detected (NotDetected); Tricyclic Antidepressant,Urine Not Detected (NotDetected); Urn Cannabinoid Scrn Detected (NotDetected)
[2022-07-28 16:11] LABS: Basophils % (A) 1 %; Eosinophils # (A) 0.2 k/uL (0-0.7); Eosinophils % (A) 4 %; HCT 34.6 % (34.0-46.0); HGB 11.4 gm/dL (11.4-16.0); Lymphocytes # (A) 1.8 k/uL (1.0-4.8); Lymphocytes % (A) 44 %; MCH 33.2 pg (25.0-35.0); MCV 100.6 fL (80.0-100.0); Macrocytosis Slight; Mean Platelet Volume 7.6; Monocytes # (A) 0.2 k/uL (0-1.0); Monocytes % (A) 4 %; Neutrophils # (A) 1.8 k/uL (1.3-7.7); Neutrophils % (A) 43 %; Platelet Count 236 k/uL (150-450); RBC 3.44 m/uL (3.80-5.40); RDW 13.8 % (11.5-15.5); WBC 4.2 k/uL (3.8-10.6)
[2022-07-28 16:22] LABS: ALT 28 U/L (4-34); AST 44 U/L (14-36); Acetaminophen <10.0 ug/mL; African American GFR (CKD) >90 (>60 ml/min/1.73 sqM); Albumin 3.4 g/dL (3.5-5.0); Alkaline Phosphatase 102 U/L (38-126); Anion Gap 12 mmol/L; Blood Urea Nitrogen 16 mg/dL (7-17); Calcium 7.9 mg/dL (8.4-10.2); Carbon Dioxide 22 mmol/L (22-30); Chloride 109 mmol/L (98-107); Glucose 93 mg/dL (74-99); Non-African American GFR(CKD) >90 (>60 ml/min/1.73 sqM); Potassium 3.7 mmol/L (3.5-5.1); Salicylate <1.0 mg/dL; Sodium 143 mmol/L (137-145); Total Bilirubin 0.5 mg/dL (0.2-1.3); Total Protein 5.5 g/dL (6.3-8.2)
[2022-07-28] MEDS ORDERED: MAG HYDROX/AL HYDROX/SIMETH 30 ML CUP PO PRN (20:53)
[2022-07-28] MEDS ORDERED: ACETAMINOPHEN TAB 325 MG TAB PO PRN (20:53)
[2022-07-28] MEDS ORDERED: HALOPERIDOL LACTATE 5 MG/ML 1 ML VIAL IM PRN (20:53)
[2022-07-28] MEDS ORDERED: MAGNESIUM HYDROXIDE 2,400 MG/10 ML CUP PO PRN (20:53)
[2022-07-28] MEDS ORDERED: CYCLOBENZAPRINE 10 MG TAB PO PRN (20:58)
[2022-07-28] MEDS ORDERED: FLUTICASONE 50MCG/SPRAY NASAL 16GM EA NOSTRIL PRN (20:58)
[2022-07-28] MEDS: PANTOPRAZOLE 40 MG TABLET PO SCH (21:16)
[2022-07-28] MEDS: LORazepam 1 MG TAB PO PRN (22:07)
--- NOTE | 2022-07-29 03:18 | P.PN ---
Progress Note - Text Progress Note Date: 07/28/22 Attempted to see the patient on 07/28 at 2100 in the mental health unit. The patient refused to be seen or be evaluated.
[2022-07-29] MEDS: chlordiazePOXIDE 25 MG CAP PO SCH ×2 (04:52→08:10)
[2022-07-29] MEDS: ESCITALOPRAM 20 MG TAB PO SCH (08:10)
[2022-07-29] MEDS: PANTOPRAZOLE 40 MG TABLET PO SCH ×2 (08:10→20:03)
[2022-07-29] MEDS ORDERED: NICOTINE 14MG/24HR PATCH TRANSDERM SCH (09:00)
[2022-07-29] MEDS: LORazepam 1 MG TAB PO PRN ×2 (12:09→20:03)
--- NOTE | 2022-07-29 13:35 | P.CONS ---
History of Present Illness - Reason for Consult Consult date: 07/29/22 Medical management Requesting physician: Александр Uribe - Chief Complaint Depression - History of Present Illness This is a 57-year-old patient who follows with Dr. Clark. Presents to the ER with symptoms of depression present for about a week. Having suicidal ideation. No homicidal thoughts. Has a history of GERD, osteoarthritis, running low back pain, ani en Y gastric surgery for peptic ulcer disease. Does get muscle spasms. Appetite is fair. Regular bowel movements. Some trouble sleeping. Some anxiety. Does get some help from medical marijuana for keeping herself calm.. Stop smoking about in 2018 with smokes one or 2 cigarettes a day. Drinks alcohol about once a week. Lives with her daughter. No fever no chills. Review of systems: GEN.: Tired EYES: None HEENT: None NECK: None RESPIRATORY: None CARDIOVASCULAR: None GASTROINTESTINAL: None GENITOURINARY: None MUSCULOSKELETAL: Chronic low back pain and muscle spasms LYMPHATICS: None HEMATOLOGICAL: None PSYCHIATRY: Depression and anxiety NEUROLOGICAL: None Past medical history to include: GERD, hypertension, peptic ulcer disease with surgery, chronic low back pain and muscle spasms. Partial gastrectomy with gastric bypass surgery. Anxiety depression. Social history: Marijuana, alcohol 3 drinks about once a week, stopped smoking in 2018 started smoking in 1982. Physical examination: VITAL SIGNS: 97.6, 82, 18, 140/78, 90% room air GENERAL: [BMI 20.6, sitting up, anxious. EYES: Pupils equal. Conjunctiva normal. HEENT: External appearance of nose and ears normal, oral cavity grossly normal. NECK: JVD not raised; masses not palpable. HEART: First and second heart sounds are normal; no edema. LUNGS: Respiratory rate normal; clear to auscultation. ABDOMEN: Soft, nontender, liver spleen not palpable, no masses palpable. PSYCH: Alert and oriented x3; mood and affect anxiousl. MUSCULOSKELETAL:No Clubbing/cyanosis;muscles-grossly intact NEUROLOGICAL: Cranial nerves grossly intact; no facial asymmetry, power and sensation grossly intact. LYMPHATICS: No lymph nodes palpable in the axilla and neck INVESTIGATIONS, reviewed in the clinical context: WBC 4.2 hemoglobin 11.4 platelets 236 potassium 3.7 creatinine 0.5-10 assessment 0.5 Urine drug screen positive for marijuana COVID 19 PCR: Not detected Assessment and plan: -Depression and anxiety. Medications as per psychiatry to include Librium, Lexapro, -GERD Protonix twice a day -Chronic muscle spasm Flexeril 10 mg 3 times a day when necessary -Chronic low back pain. Has had outpatient workup. Tylenol as needed -Mild nicotine dependence. Nicotine patch Care was discussed the patient. Questions answered. Tylenol when necessary. Nicotine patch. Patient to follow-up with his PCP upon discharge. Thank you Dr. Jacobs Past Medical History Past Medical History: GERD/Reflux, Hypertension Additional Past Medical History / Comment(s): Past hypotension/bradycardia thought to be medication related, bowel obstruction with surgery, PUD with surgery, gastroparesis, chronic low back pain, DJD, heart murmur as a child. History of Any Multi-Drug Resistant Organisms: None Reported Past Surgical History: Bowel Resection Additional Past Surgical History / Comment(s): ani en y gastric bypass,partial gastectomy, colonoscopy. Past Anesthesia/Blood Transfusion Reactions: No Reported Reaction Past Psychological History: Anxiety, Depression Smoking Status: Former smoker Past Alcohol Use History: Occasional Past Drug Use History: Marijuana - Past Family History Mother Family Medical History: GERD/Reflux, Hypertension Additional Family Medical History / Comment(s): Pt. reports her mother is overall healthy and is 81 years old. Father History Unknown: Yes Additional Family Medical History / Comment(s): father was shot and killed when pt was 10 years old. family Additional Family Medical History / Comment(s): denies any history of cancer or CAD in the family Medications and Allergies Home Medications Medication Instructions Recorded Confirmed Type Escitalopram [Lexapro] 20 mg PO DAILY 11/24/18 07/28/22 History traZODone HCL 150 mg PO HS 11/24/18 07/28/22 History Pantoprazole Sodium [Protonix] 40 mg PO BID 12/25/18 07/28/22 History Ammonium Lactate Cream [Lac-Hydrin 1 applic TOPICAL BID PRN 05/15/22 07/28/22 History 12% Cream] Fluticasone Nasal [place] [Flonase 1 spray EA NOSTRIL DAILY PRN 05/15/22 07/28/22 History Nasal Ferguson] Cyclobenzaprine [Flexeril] 10 mg PO TID PRN #12 tablet 07/13/22 07/28/22 Rx Allergies Allergy/AdvReac Type Severity Reaction Status Date / Time prochlorperazine AdvReac restless Verified 07/28/22 13:58 [From Compazine] leg prochlorperazine edisylate AdvReac restless Verified 07/28/22 13:58 [From Compazine] leg prochlorperazine maleate AdvReac restless Verified 07/28/22 13:58 [From Compazine] leg Physical Exam Vitals: Vital Signs Temp Pulse Pulse Resp BP BP Pulse Ox 07/29/22 09:00 82 140/78 07/29/22 00:36 97.6 F 97 18 136/62 07/28/22 22:27 97.0 F L 90 18 158/87 07/28/22 20:00 86 16 114/59 100 07/28/22 19:00 84 18 107/65 98 07/28/22 18:00 85 17 101/58 98 07/28/22 17:00 77 18 105/58 100 07/28/22 16:09 74 18 97/58 100 07/28/22 15:40 98.0 F 74 18 101/64 100 07/28/22 15:15 68 18 07/28/22 13:52 98.1 F 105 H 20 120/67 100 Results CBC & Chem 7: 07/28/22 15:57 07/28/22 15:57 Labs: Abnormal Lab Results - Last 24 Hours (Table) 07/28/22 07/28/22 07/28/22 Range/Units 14:25 15:57 15:57 RBC 3.44 L (3.80-5.40) m/uL MCV 100.6 H (80.0-100.0) fL Chloride 109 H (98-107) mmol/L Calcium 7.9 L (8.4-10.2) mg/dL AST 44 H (14-36) U/L Total Protein 5.5 L (6.3-8.2) g/dL Albumin 3.4 L (3.5-5.0) g/dL U Marijuana (THC) Screen Detected H (NotDetected)
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
[2022-07-29 17:18] LABS: Chol/HDL Ratio 2.82 Ratio; LDL Cholesterol,Calculated 19.8 mg/dL (0.0-131.0)
[2022-07-29] MEDS: MAGNESIUM OXIDE 400 MG TAB PO SCH (20:44)
[2022-07-30] MEDS: traZODone HCL 50 MG TAB PO SCH ×2 (00:18→20:15)
[2022-07-30 00:24] VITALS: RESP 16; TEMP 97.8
[2022-07-30 06:46] VITALS: BP 138/76; PULSE 77
[2022-07-30] MEDS: ESCITALOPRAM 20 MG TAB PO SCH (08:06)
[2022-07-30] MEDS: PANTOPRAZOLE 40 MG TABLET PO SCH ×2 (08:06→20:15)
[2022-07-30] MEDS: LORazepam 1 MG TAB PO PRN ×3 (08:07→22:22)
--- NOTE | 2022-07-30 12:42 | P.PN ---
Progress Note - Text Progress Note Date: 07/30/22 S&O: Patient was seen in rounds. She said she was taking Carafate about 4 times a day for her stomach problems and is asking to be put on it. She agreed to take it 3 times a day. She said her daughter needs her to take care of patient's grandchild when patient's daughter goes to work. She said she gets along fairly well with her daughter but had an argument before she came here. She said she is planning on staying with her daughter until end of winter. She is asking for Ativan on a when necessary basis since she said she gets nervous at times. She was counseled about. She said she has been going to the group taking her medications and gets along fairly well with patients and staff. This is a right ambulatory female with adequate hygiene. She does not show any psychomotor agitation or retardation. Her speech is spontaneous relevant and goal-directed. Her mood is euthymic and gets almost tearful at times when describing the problems she is having. Denies hallucinations delusional thinking suicide and homicide thoughts. She is well oriented with adequate memory concentration and general fund of knowledge. A&P: Updated diagnostic impression since it was not mentioned in yesterday's H&P. Adjustment disorder with mixed disturbance of emotions and conduct, borderline personality disorder, cannabis use disorder moderate, alcohol use disorder mild to moderate, gastric ulcer, ALLERGY/adverse effect from prochlorperazine. She was started on Carafate 1 g 3 times a day for her stomach problems. Continue her Lexapro and trazodone per her request. She was counseled to receive DBT when she goes to [facility]. She agreed with it.
[2022-07-30] MEDS: SUCRALFATE 1 GM TAB PO SCH ×2 (13:25→16:44)
[2022-07-30] MEDS: MAGNESIUM OXIDE 400 MG TAB PO SCH (20:15)
[2022-07-31] MEDS: SUCRALFATE 1 GM TAB PO SCH ×2 (07:49→12:28)
[2022-07-31] MEDS: LORazepam 1 MG TAB PO PRN (07:49)
[2022-07-31] MEDS: ESCITALOPRAM 20 MG TAB PO SCH (09:10)
[2022-07-31] MEDS: PANTOPRAZOLE 40 MG TABLET PO SCH (09:10)
--- NOTE | 2022-07-31 11:20 | P.DS ---
Providers Date of admission: 07/28/22 20:49 Expected date of discharge: 07/31/22 Attending physician: Александр Jacobs MD Consults: 07/28/22 20:53 Consult Physician Routine Consulting Provider: Justice Guillory Consult Reason/Comments: medical management Do you want consulting provider notified?: Already Contacted Primary care physician: [facility] Course: Patient had her psychiatric history and physical done by [facility] and medical H&P done by Dr. Guillory on 07/29/2022. She was continued on her home medications of Lexapro 20 mg a day and medications for physical problems were also continued. She received milieu therapy group therapy individual therapy occupational therapy and recreational therapy. She improved quite rapidly without any medication change and felt she is ready to go home. In view of this it was agreed to discharge her. Currently she is polite friendly and cooperative. Does not show any psychomotor agitation or retardation. Her speech is spontaneous relevant and goal-directed. Her mood is cheerful and affect is appropriate. She continues to deny suicidal and homicidal thoughts hallucinations and delusional thinking. Her sensorium is clear. She said she has her home medications and that she does not need any new prescription. Since her medications were not changed it was agreed not to write any prescription for her. Her discharge diagnoses are: Adjustment disorder with mixed disturbance in emotions and conduct, cannabis use disorder moderate alcohol use disorder mild to moderate and gastric ulcer. Plan - Discharge Summary Discharge Rx Participant: No New Discharge Prescriptions: No Action traZODone HCL 150 mg PO HS Escitalopram [Lexapro] 20 mg PO DAILY Pantoprazole Sodium [Protonix] 40 mg PO BID Fluticasone Nasal Alliance [Flonase Nasal Alliance] 1 spray EA NOSTRIL DAILY PRN PRN Reason: Allergy Symptoms Ammonium Lactate Cream [Lac-Hydrin 12% Cream] 1 applic TOPICAL BID PRN PRN Reason: HANDS Cyclobenzaprine [Flexeril] 10 mg PO TID PRN #12 tablet PRN Reason: Pain Discharge Medication List Escitalopram [Lexapro] 20 mg PO DAILY 11/24/18 [History] traZODone HCL 150 mg PO HS 11/24/18 [History] Pantoprazole Sodium [Protonix] 40 mg PO BID 12/25/18 [History] Ammonium Lactate Cream [Lac-Hydrin 12% Cream] 1 applic TOPICAL BID PRN 05/15/22 [History] Fluticasone Nasal Alliance [Flonase Nasal Alliance] 1 spray EA NOSTRIL DAILY PRN 05/15/22 [History] Cyclobenzaprine [Flexeril] 10 mg PO TID PRN #12 tablet 07/13/22 [Rx] Follow up Appointment(s)/Referral(s): Александр Uribe DO [Primary Care Provider] - 1-2 days Activity/Diet/Wound Care/Special Instructions: Avoid the use of street drugs and alcohol. Take all prescriptions as prescribed. When you are in need of refills on your medications, please contact your medical provider and/or outpatient psychiatrist to have this done. Please go to scheduled outpatient appointment for aftercare treatment. If symptoms return or become worse, call the crisis line at and/or go to the nearest emergency room for evaluation.
== END 2022-07-31 13:56 | disposition home or self-care (01) | DRG 882 ==
LOC: EC 12:22 → 3MHU 20:49
PROVIDERS: ADMIT Psychiatry & Neurology Psychiatry; ATTEND Psychiatry & Neurology Psychiatry
DX: F43.25 Adjustment disorder with mixed disturbance of emotions and conduct (principal); R45.851 Suicidal ideations; F12.90 Cannabis use, unspecified, uncomplicated; F17.200 Nicotine dependence, unspecified, uncomplicated; G89.29 Other chronic pain; I10 Essential (primary) hypertension; K21.9 Gastro-esophageal reflux disease without esophagitis; K25.9 Gastric ulcer, unspecified as acute or chronic, without hemorrhage or perforation; Z79.899 Other long term (current) drug therapy; Z90.3 Acquired absence of stomach [part of]; Z98.84 Bariatric surgery status; Z20.822 Contact with and (suspected) exposure to COVID-19
CPT/HCPCS: 36415; 80053; 80061; 80143; 80179; 80306; 82075; 83036; 84443; 85025; 87635; 93005; 99285

== ENCOUNTER 2022-09-16 16:17 | Emergency (ER) | payer OTHER ==
[2022-09-16 16:25] VITALS: RESP 16; TEMP 98.7
[2022-09-16] MEDS ORDERED: SODIUM CHLORIDE 0.9% 1,000 ML IV ONE (17:22)
[2022-09-16] MEDS ORDERED: LORazepam 2 MG/ML INJ IV STA (17:22)
[2022-09-16] MEDS ORDERED: ONDANSETRON 4 MG/2 ML VIAL IVP STA (17:24)
--- NOTE | 2022-09-16 17:24 | ED ---
General Adult HPI - General Chief complaint: Alcohol Stated complaint: alcohol Time Seen by Provider: 09/16/22 16:25 Source: patient, EMS, RN notes reviewed, old records reviewed Mode of arrival: EMS Limitations: no limitations - History of Present Illness Initial comments: This a 57-year-old female presents emergency Department stating her anxiety is g etting worse. Patient states she seen her primary medical care doctor but she's not doing anything for her at this time. Patient states she quit drinking about 17 days ago but she started up again the last 2 days and had a few beers each day and she thinks this is making her anxiety worse she's upset with herself or having done any drinking and today she started vomiting and couldn't get her anx iety under control so she came to the emergency department. Patient denies any chest pain difficulty breathing first breath per patient denies any recent fever chills or cough. Patient denies any syncopal or near syncopal episode. Patient denies headache patient denies numbness weakness per patient denies any abdominal pain patient denies nausea vomiting or diarrhea. Patient denies any trauma - Related Data Home Medications Medication Instructions Recorded Confirmed Escitalopram [Lexapro] 20 mg PO DAILY 11/24/18 07/28/22 traZODone HCL 150 mg PO HS 11/24/18 07/28/22 Pantoprazole Sodium [Protonix] 40 mg PO BID 12/25/18 07/28/22 Ammonium Lactate Cream [Lac-Hydrin 1 applic TOPICAL BID PRN 05/15/22 07/28/22 12% Cream] Fluticasone Nasal [place] [Flonase 1 spray EA NOSTRIL DAILY PRN 05/15/22 07/28/22 Nasal [place]] Previous Rx's Medication Instructions Recorded Cyclobenzaprine [Flexeril] 10 mg PO TID PRN #12 tablet 07/13/22 Allergies Allergy/AdvReac Type Severity Reaction Status Date / Time prochlorperazine AdvReac restless Verified 07/28/22 13:58 [From Compazine] leg prochlorperazine edisylate AdvReac restless Verified 07/28/22 13:58 [From Compazine] leg prochlorperazine maleate AdvReac restless Verified 07/28/22 13:58 [From Compazine] leg Review of Systems ROS Statement: Those systems with pertinent positive or pertinent negative responses have been documented in the HPI. ROS Other: All systems not noted in ROS Statement are negative. Past Medical History Past Medical History: GERD/Reflux, Hypertension Additional Past Medical History / Comment(s): Past hypotension/bradycardia thought to be medication related, bowel obstruction with surgery, PUD with surgery, gastroparesis, chronic low back pain, DJD, heart murmur as a child. History of Any Multi-Drug Resistant Organisms: None Reported Past Surgical History: Bowel Resection Additional Past Surgical History / Comment(s): ani en y gastric bypass,partial gastectomy, colonoscopy. Past Anesthesia/Blood Transfusion Reactions: No Reported Reaction Past Psychological History: Anxiety, Depression Smoking Status: Former smoker Past Alcohol Use History: Occasional Past Drug Use History: Marijuana - Past Family History Mother Family Medical History: GERD/Reflux, Hypertension Additional Family Medical History / Comment(s): Pt. reports her mother is overall healthy and is 81 years old. Father History Unknown: Yes Additional Family Medical History / Comment(s): father was shot and killed when pt was 10 years old. family Additional Family Medical History / Comment(s): denies any history of cancer or CAD in the family General Exam - General Exam Comments Initial Comments: GENERAL: Patient is well-developed and well-nourished. Patient is nontoxic and well- hydrated and is in mild distress. ENT: Neck is soft and supple. No significant lymphadenopathy is noted. Oropharynx is clear. Moist mucous membranes. Neck has full range of motion without eliciting any pain. EYES: The sclera were anicteric and conjunctiva were pink and moist. Extraocular movements were intact and pupils were equal round and reactive to light. Eyelids were unremarkable. PULMONARY: Unlabored respirations. Good breath sounds bilaterally. No audible rales rhonchi or wheezing was noted. CARDIOVASCULAR: There is a regular rate and rhythm without any murmurs gallops or rubs. ABDOMEN: Soft and nontender with normal bowel sounds. SKIN: Skin is clear with no lesions or rashes and otherwise unremarkable. NEUROLOGIC: Patient is alert and oriented x3. Cranial nerves II through XII are grossly intact. Motor and sensory are also intact. Normal speech, volume and content. Symmetrical smile. MUSCULOSKELETAL: Normal extremities with adequate strength and full range of motion. No lower extremity swelling or edema. No calf tenderness. LYMPHATICS: No significant lymphadenopathy is noted PSYCHIATRIC: Patient is mildly anxious Limitations: no limitations Course Vital Signs 09/16/22 16:22 Temperature 98.7 F Pulse Rate 71 Respiratory 16 Rate Blood Pressure 169/98 O2 Sat by Pulse 96 Oximetry Medical Decision Making - Medical Decision Making Patient is given half an Ativan and was feeling considerably better. Patient will follow-up with her primary medical care doctor for either a medication adjustment or a new medication. - Lab Data Result diagrams: 09/16/22 17:36 09/16/22 17:36 Lab Results 09/16/22 09/16/22 Range/Units 17:36 17:36 WBC 8.0 (3.8-10.6) k/uL RBC 4.35 (3.80-5.40) m/uL Hgb 14.2 (11.4-16.0) gm/dL Hct 41.1 (34.0-46.0) % MCV 94.6 D (80.0-100.0) fL MCH 32.6 (25.0-35.0) pg MCHC 34.5 (31.0-37.0) g/dL RDW 12.4 (11.5-15.5) % Plt Count 285 (150-450) k/uL MPV 8.7 Neutrophils % 80 % Lymphocytes % 12 % Monocytes % 6 % Eosinophils % 1 % Basophils % 1 % Neutrophils # 6.4 (1.3-7.7) k/uL Lymphocytes # 1.0 (1.0-4.8) k/uL Monocytes # 0.5 (0-1.0) k/uL Eosinophils # 0.1 (0-0.7) k/uL Basophils # 0.1 (0-0.2) k/uL Sodium 134 L (137-145) mmol/L Potassium 4.4 (3.5-5.1) mmol/L Chloride 102 (98-107) mmol/L Carbon Dioxide 21 L (22-30) mmol/L Anion Gap 11 mmol/L BUN 13 (7-17) mg/dL Creatinine 0.52 (0.52-1.04) mg/dL Est GFR (CKD-EPI)AfAm >90 (>60 ml/min/1.73 sqM) Est GFR (CKD-EPI)NonAf >90 (>60 ml/min/1.73 sqM) Glucose 95 (74-99) mg/dL Calcium 9.1 (8.4-10.2) mg/dL Magnesium 1.6 (1.6-2.3) mg/dL Total Bilirubin 0.5 (0.2-1.3) mg/dL AST 30 (14-36) U/L ALT 17 (4-34) U/L Alkaline Phosphatase 74 (38-126) U/L Total Protein 6.5 (6.3-8.2) g/dL Albumin 4.2 (3.5-5.0) g/dL Disposition Clinical Impression: Anxiety Disposition: HOME SELF-CARE Condition: Good Instructions (If sedation given, give patient instructions): Abuse of Alcohol (ED), Anxiety (ED) Is patient prescribed a controlled substance at d/c from ED?: No Referrals: Александр Uribe DO [Primary Care Provider] - 1-2 days Time of Disposition: 18:27
[2022-09-16 18:00] LABS: ALT 17 U/L (4-34); AST 30 U/L (14-36); African American GFR (CKD) >90 (>60 ml/min/1.73 sqM); Albumin 4.2 g/dL (3.5-5.0); Alkaline Phosphatase 74 U/L (38-126); Anion Gap 11 mmol/L; Blood Urea Nitrogen 13 mg/dL (7-17); Calcium 9.1 mg/dL (8.4-10.2); Carbon Dioxide 21 mmol/L (22-30); Chloride 102 mmol/L (98-107); Glucose 95 mg/dL (74-99); Magnesium 1.6 mg/dL (1.6-2.3); Non-African American GFR(CKD) >90 (>60 ml/min/1.73 sqM); Potassium 4.4 mmol/L (3.5-5.1); Sodium 134 mmol/L (137-145); Total Bilirubin 0.5 mg/dL (0.2-1.3); Total Protein 6.5 g/dL (6.3-8.2)
[2022-09-16 18:09] LABS: Basophils # (A) 0.1 k/uL (0-0.2); Basophils % (A) 1 %; Eosinophils # (A) 0.1 k/uL (0-0.7); Eosinophils % (A) 1 %; HCT 41.1 % (34.0-46.0); HGB 14.2 gm/dL (11.4-16.0); Lymphocytes % (A) 12 %; MCH 32.6 pg (25.0-35.0); MCHC 34.5 g/dL (31.0-37.0); Mean Platelet Volume 8.7; Monocytes # (A) 0.5 k/uL (0-1.0); Monocytes % (A) 6 %; Neutrophils # (A) 6.4 k/uL (1.3-7.7); Neutrophils % (A) 80 %; Platelet Count 285 k/uL (150-450); RBC 4.35 m/uL (3.80-5.40); RDW 12.4 % (11.5-15.5)
[2022-09-16 18:20] LABS: MCV 94.6 fL (80.0-100.0)
[2022-09-16] MEDS ORDERED: ONDANSETRON 4 MG ODT STARTER PACK 2 TAB BTL PO STA (18:37)
[2022-09-16 18:48] VITALS: BP 169/94; PULSE 72
== END 2022-09-16 18:48 | disposition home or self-care (01) ==
LOC: EC 16:17
DX: F41.9 Anxiety disorder, unspecified (principal); I10 Essential (primary) hypertension; K21.9 Gastro-esophageal reflux disease without esophagitis; Z88.8 Allergy status to other drugs, medicaments and biological substances; Z87.891 Personal history of nicotine dependence
CPT/HCPCS: 99283; 96374; 96375; 96361; 36415; 80053; 83735; 85025; J2060; J2405; S0119

== ENCOUNTER 2023-05-19 20:37 | Emergency (ER) | payer OTHER ==
[2023-05-19 21:48] VITALS: BP 188/76; PULSE 51; RESP 18; TEMP 98.5
[2023-05-20 00:05] LABS: Basophils % (A) 1 %; Eosinophils # (A) 0.2 k/uL (0-0.7); Eosinophils % (A) 2 %; HGB 12.6 gm/dL (11.4-16.0); Lymphocytes # (A) 2.7 k/uL (1.0-4.8); Lymphocytes % (A) 38 %; MCH 30.9 pg (25.0-35.0); MCHC 33.3 g/dL (31.0-37.0); MCV 92.8 fL (80.0-100.0); Mean Platelet Volume 8.3; Monocytes # (A) 0.6 k/uL (0-1.0); Monocytes % (A) 8 %; Neutrophils # (A) 3.5 k/uL (1.3-7.7); Neutrophils % (A) 49 %; Platelet Count 293 k/uL (150-450); RBC 4.09 m/uL (3.80-5.40); RDW 12.8 % (11.5-15.5); WBC 7.1 k/uL (3.8-10.6)
[2023-05-20] MEDS ORDERED: FAMOTIDINE 20 MG/2 ML VIAL IV STA (00:10)
[2023-05-20] MEDS ORDERED: MAG HYDROX/AL HYDROX/SIMETH 30 ML, HYOSCYAMINE ELIXIR 10 ML, LIDOCAINE 2% GLYDO JELLY 1... PO STA ×3 (00:10)
--- NOTE | 2023-05-20 00:12 | ED ---
Abdominal Pain HPI - General Chief Complaint: Abdominal Pain Stated Complaint: Abd Pain Time Seen by Provider: 05/20/23 00:03 Source: patient Mode of arrival: ambulatory Limitations: no limitations - History of Present Illness Initial Comments: This patient is a 58-year-old woman who presents to have evaluation of diffuse upper abdominal pain. The patient notes that the pain came on in the morning and then got more intense. She states that when it did not resolve she felt she should be seen here. She does state that the pain is somewhat similar to pain she had related to previous ulcer disease. She has not had any hematemesis. She has not noted any dark tarry or bloody stools. MD Complaint: abdominal pain -: hour(s) Location: LUQ, RUQ, epigastric Radiation: none Severity: severe Quality: aching Consistency: constant Improves With: nothing Worsens With: nothing - Related Data Home Medications Medication Instructions Recorded Confirmed Escitalopram [Lexapro] 20 mg PO DAILY 11/24/18 07/28/22 traZODone HCL 150 mg PO HS 11/24/18 07/28/22 Pantoprazole Sodium [Protonix] 40 mg PO BID 12/25/18 07/28/22 Ammonium Lactate Cream [Lac-Hydrin 1 applic TOPICAL BID PRN 05/15/22 07/28/22 12% Cream] Fluticasone Nasal [place] [Flonase 1 spray EA NOSTRIL DAILY PRN 05/15/22 07/28/22 Nasal [place]] Previous Rx's Medication Instructions Recorded Cyclobenzaprine [Flexeril] 10 mg PO TID PRN #12 tablet 07/13/22 Allergies Allergy/AdvReac Type Severity Reaction Status Date / Time prochlorperazine AdvReac restless Verified 05/19/23 21:46 [From Compazine] leg prochlorperazine edisylate AdvReac restless Verified 05/19/23 21:46 [From Compazine] leg prochlorperazine maleate AdvReac restless Verified 05/19/23 21:46 [From Compazine] leg Review of Systems ROS Statement: Those systems with pertinent positive or pertinent negative responses have been documented in the HPI. ROS Other: All systems not noted in ROS Statement are negative. Constitutional: Denies: fever, chills Respiratory: Denies: cough, dyspnea Cardiovascular: Denies: chest pain, palpitations Gastrointestinal: Reports: abdominal pain. Denies: vomiting, diarrhea, melena, hematochezia Genitourinary: Denies: dysuria, hematuria Musculoskeletal: Denies: back pain Skin: Denies: rash Neurological: Denies: headache, weakness, numbness Past Medical History Past Medical History: GERD/Reflux, Hypertension Additional Past Medical History / Comment(s): Past hypotension/bradycardia thought to be medication related, bowel obstruction with surgery, PUD with surgery, gastroparesis, chronic low back pain, DJD, heart murmur as a child. History of Any Multi-Drug Resistant Organisms: None Reported Past Surgical History: Bowel Resection Additional Past Surgical History / Comment(s): ani en y gastric bypass,partial gastectomy, colonoscopy. Past Anesthesia/Blood Transfusion Reactions: No Reported Reaction Past Psychological History: Anxiety, Depression Smoking Status: Former smoker Past Alcohol Use History: Occasional Past Drug Use History: Marijuana - Past Family History Mother Family Medical History: GERD/Reflux, Hypertension Additional Family Medical History / Comment(s): Pt. reports her mother is overall healthy and is 81 years old. Father History Unknown: Yes Additional Family Medical History / Comment(s): father was shot and killed when pt was 10 years old. family Additional Family Medical History / Comment(s): denies any history of cancer or CAD in the family General Exam Limitations: no limitations General appearance: alert, in no apparent distress Head exam: Present: atraumatic, normocephalic Eye exam: Present: normal appearance. Absent: scleral icterus, conjunctival injection Neck exam: Present: normal inspection Respiratory exam: Present: normal lung sounds bilaterally. Absent: respiratory distress, wheezes, rales, rhonchi, stridor Cardiovascular Exam: Present: regular rate, normal rhythm, normal heart sounds. Absent: systolic murmur, diastolic murmur, rubs, gallop GI/Abdominal exam: Present: soft, tenderness (Mild diffuse tenderness without rebound or guarding), diminished bowel sounds. Absent: distended, guarding, rebound, rigid, mass, pulsatile mass, hernia Extremities exam: Present: normal inspection, normal capillary refill. Absent: pedal edema, calf tenderness Back exam: Present: normal inspection. Absent: CVA tenderness (R), CVA tenderness (L) Neurological exam: Present: alert Skin exam: Present: warm, dry, intact, normal color. Absent: rash Course Vital Signs 05/19/23 21:46 Temperature 98.5 F Pulse Rate 51 L Respiratory 18 Rate Blood Pressure 188/76 O2 Sat by Pulse 98 Oximetry Medical Decision Making - Medical Decision Making This patient is a 58-year-old woman presenting with abdominal pain going on for most of the day. The workup here not revealing the exact etiology, computed tomography scan had been ordered, and I interpreted this as not showing perforated viscus or solid organ pathology, however the radiology read was not returned. The patient subsequently decided that she wanted to go home and not wait for the radiology report. She felt she would benefit from resting at home and she would return if the pain did not resolve. We discussed appropriate further care and follow-up as well as return parameters. Given the tenderness I did feel that she should probably stay and have the study but the patient states she will return if not improving. Understands there is risk with leaving before diagnosis is found. Was pt. sent in by a medical professional or institution (, PA, PUNCHER, urgent care, hospital, or skilled nursing...) When possible be specific @ -[No] Did you speak to anyone other than the patient for history (EMS, parent, family, police, friend...)? What history was obtained from this source @ -[No] Did you review nursing and triage notes (agree or disagree)? Why? @ -[I reviewed and agree with nursing and triage notes] Were old charts reviewed (outside hosp., previous admission, EMS record, old EKG, old radiological studies, urgent care reports/EKG's, skilled nursing records)? Report findings @ -[No old charts were reviewed] Differential Diagnosis (chest pain, altered mental status, abdominal pain women, abdominal pain men, vaginal bleeding, weakness, fever, dyspnea, syncope, headache, dizziness, GI bleed, back pain, seizure, CVA, palpatations, mental health, musculoskeletal)? @ -[Differential Abdominal Pain Women: Appendicitis, Cholecystitis, diverticulosis, ischemic bowel, pancreatitis, hepatitis, UTI, gastroenteritis, AAA, incarcerated hernia, bowel obstruction, constipation, inflammatory bowel, hepatitis, peptic ulcer disease, splenic infarction, perforated viscus, vulvitis, ovarian torsion, PID, kidney stone, placenta abruption, this is not meant to be an all-inclusive list EKG interpreted by me (3pts min.). @ -[As above] X-rays interpreted by me (1pt min.). @ -[None done] CT interpreted by me (1pt min.). @ -[As above U/S interpreted by me (1pt. min.). @ -[None done] What testing was considered but not performed or refused? (CT, X-rays, U/S, labs)? Why? @ -[Computed tomography scan ordered but the patient declined to stay for the CT report from radiology. What meds were considered but not given or refused? Why? @ -[None] Did you discuss the management of the patient with other professionals (professionals i.e. , PA, PUNCHER, lab, RT, psych nurse, criminal justice social worker, occupational health nurse manager, teacher, security flex officer, gearcase assembler)? Give summary @ -[No] Was smoking cessation discussed for >3mins.? @ -[No] Was critical care preformed (if so, how long)? @ -[No] Were there social determinants of health that impacted care today? How? (Homelessness, low income, unemployed, alcoholism, drug addiction, transportation, low edu. Level, literacy, decrease access to med. care, long-term, rehab)? @ -[No] Was there de-escalation of care discussed even if they declined (Discuss DNR or withdrawal of care, Hospice)? DNR status @ -[No] What co-morbidities impacted this encounter? (DM, HTN, Smoking, COPD, CAD, Cancer, CVA, ARF, Chemo, Hep., AIDS, mental health diagnosis, sleep apnea, morbid obesity)? @ -[None] Was patient admitted / discharged? Hospital course, mention meds given and route, prescriptions, significant lab abnormalities, going to OR and other pertinent info. @ -The patient decided to leave AGAINST MEDICAL ADVICE, see above Undiagnosed new problem with uncertain prognosis? @ -[No] Drug Therapy requiring intensive monitoring for toxicity (Heparin, Nitro, Insulin, Cardizem)? @ -[No] Were any procedures done? @ -[No] Diagnosis/symptom? @ -[Acute abdominal pain, uncomplicated Acute, or Chronic, or Acute on Chronic? @ -[default] Uncomplicated (without systemic symptoms) or Complicated (systemic symptoms)? @ -[default] Side effects of treatment? @ -[No] Exacerbation, Progression, or Severe Exacerbation? @ -[No] Poses a threat to life or bodily function? How? (Chest pain, USA, PA, pneumonia, PE, COPD, DKA, ARF, appy, cholecystitis, CVA, Diverticulitis, Homicidal, Suicidal, threat to staff... and all critical care pts) @ -[It is undetermined at this point, certainly abdominal pain of unknown etiology may be life-threatening - Lab Data Result diagrams: 05/19/23 23:36 05/19/23 23:36 Lab Results 05/19/23 05/19/23 05/20/23 Range/Units 23:36 23:36 00:22 WBC 7.1 (3.8-10.6) k/uL RBC 4.09 (3.80-5.40) m/uL Hgb 12.6 (11.4-16.0) gm/dL Hct 38.0 (34.0-46.0) % MCV 92.8 (80.0-100.0) fL MCH 30.9 (25.0-35.0) pg MCHC 33.3 (31.0-37.0) g/dL RDW 12.8 (11.5-15.5) % Plt Count 293 (150-450) k/uL MPV 8.3 Neutrophils % 49 % Lymphocytes % 38 % Monocytes % 8 % Eosinophils % 2 % Basophils % 1 % Neutrophils # 3.5 (1.3-7.7) k/uL Lymphocytes # 2.7 (1.0-4.8) k/uL Monocytes # 0.6 (0-1.0) k/uL Eosinophils # 0.2 (0-0.7) k/uL Basophils # 0.0 (0-0.2) k/uL Sodium 136 L (137-145) mmol/L Potassium 3.8 (3.5-5.1) mmol/L Chloride 104 (98-107) mmol/L Carbon Dioxide 24 (22-30) mmol/L Anion Gap 8 mmol/L BUN 15 (7-17) mg/dL Creatinine 0.71 (0.52-1.04) mg/dL Est GFR (CKD-EPI)AfAm >90 (>60 ml/min/1.73 sqM) Est GFR (CKD-EPI)NonAf >90 (>60 ml/min/1.73 sqM) Glucose 108 H (74-99) mg/dL Calcium 9.3 (8.4-10.2) mg/dL Total Bilirubin 0.7 (0.2-1.3) mg/dL AST 40 H (14-36) U/L ALT 26 (4-34) U/L Alkaline Phosphatase 61 (38-126) U/L Troponin I (0.000-0.034) ng/mL Total Protein 6.8 (6.3-8.2) g/dL Albumin 4.2 (3.5-5.0) g/dL Amylase 39 (30-110) U/L Lipase 30 (23-300) U/L Urine Color Light Yellow Urine Appearance Clear (Clear) Urine pH 7.0 (5.0-8.0) Ur Specific [place] 1.017 (1.001-1.035) Urine Protein Negative (Negative) Urine Glucose (UA) Negative (Negative) Urine Ketones Negative (Negative) Urine Blood Negative (Negative) Urine Nitrite Negative (Negative) Urine Bilirubin Negative (Negative) Urine Urobilinogen <2.0 (<2.0) mg/dL Ur Leukocyte Esterase Small H (Negative) Urine RBC 1 (0-5) /hpf Urine WBC 4 (0-5) /hpf Ur Squamous Epith Cells 2 (0-4) /hpf Urine Mucus Rare H (None) /hpf 05/20/23 Range/Units 00:22 WBC (3.8-10.6) k/uL RBC (3.80-5.40) m/uL Hgb (11.4-16.0) gm/dL Hct (34.0-46.0) % MCV (80.0-100.0) fL MCH (25.0-35.0) pg MCHC (31.0-37.0) g/dL RDW (11.5-15.5) % Plt Count (150-450) k/uL MPV Neutrophils % % Lymphocytes % % Monocytes % % Eosinophils % % Basophils % % Neutrophils # (1.3-7.7) k/uL Lymphocytes # (1.0-4.8) k/uL Monocytes # (0-1.0) k/uL Eosinophils # (0-0.7) k/uL Basophils # (0-0.2) k/uL Sodium (137-145) mmol/L Potassium (3.5-5.1) mmol/L Chloride (98-107) mmol/L Carbon Dioxide (22-30) mmol/L Anion Gap mmol/L BUN (7-17) mg/dL Creatinine (0.52-1.04) mg/dL Est GFR (CKD-EPI)AfAm (>60 ml/min/1.73 sqM) Est GFR (CKD-EPI)NonAf (>60 ml/min/1.73 sqM) Glucose (74-99) mg/dL Calcium (8.4-10.2) mg/dL Total Bilirubin (0.2-1.3) mg/dL AST (14-36) U/L ALT (4-34) U/L Alkaline Phosphatase (38-126) U/L Troponin I <0.012 (0.000-0.034) ng/mL Total Protein (6.3-8.2) g/dL Albumin (3.5-5.0) g/dL Amylase (30-110) U/L Lipase (23-300) U/L Urine Color Urine Appearance (Clear) Urine pH (5.0-8.0) Ur Specific [place] (1.001-1.035) Urine Protein (Negative) Urine Glucose (UA) (Negative) Urine Ketones (Negative) Urine Blood (Negative) Urine Nitrite (Negative) Urine Bilirubin (Negative) Urine Urobilinogen (<2.0) mg/dL Ur Leukocyte Esterase (Negative) Urine RBC (0-5) /hpf Urine WBC (0-5) /hpf Ur Squamous Epith Cells (0-4) /hpf Urine Mucus (None) /hpf - EKG Data -: EKG Interpreted by Md EKG shows normal: sinus rhythm, axis (Normal), intervals (Normal), QRS complexes (Suspected incomplete right bundle branch block.) Rate: bradycardia (Rate 48 bpm) Disposition Clinical Impression: Abdominal pain Disposition: LEFT AGAINST MEDICAL ADVICE Condition: Undetermined Instructions (If sedation given, give patient instructions): Abdominal Pain (ED) Is patient prescribed a controlled substance at d/c from ED?: No Referrals: Александр Uribe DO [Primary Care Provider] - 1-2 days Aurea Floyd MD [STAFF PHYSICIAN] - 1-2 days
[2023-05-20 00:19] LABS: ALT 26 U/L (4-34); AST 40 U/L (14-36); African American GFR (CKD) >90 (>60 ml/min/1.73 sqM); Albumin 4.2 g/dL (3.5-5.0); Alkaline Phosphatase 61 U/L (38-126); Amylase 39 U/L (30-110); Anion Gap 8 mmol/L; Blood Urea Nitrogen 15 mg/dL (7-17); Calcium 9.3 mg/dL (8.4-10.2); Carbon Dioxide 24 mmol/L (22-30); Chloride 104 mmol/L (98-107); Glucose 108 mg/dL (74-99); Lipase 30 U/L (23-300); Non-African American GFR(CKD) >90 (>60 ml/min/1.73 sqM); Potassium 3.8 mmol/L (3.5-5.1); Sodium 136 mmol/L (137-145); Total Bilirubin 0.7 mg/dL (0.2-1.3); Total Protein 6.8 g/dL (6.3-8.2)
[2023-05-20 00:52] LABS: Appearance,Urine Clear (Clear); Bilirubin,Urine Negative (Negative); Blood,Urine Negative (Negative); Color,Urine Light Yellow; Glucose,Urine (UA) Negative (Negative); Ketones,Urine Negative (Negative); Leukocyte Esterase,Urine Small (Negative); Mucus,Urine Rare /hpf; Nitrite,Urine Negative (Negative); Protein,Urine Negative (Negative); RBC,Urine 1 /hpf (0-5); Specific Gravity,Urine 1.017 (1.001-1.035); Squamous Epithelial Cell,Urine 2 /hpf (0-4); Urobilinogen,Urine <2.0 mg/dL (<2.0); WBC,Urine 4 /hpf (0-5)
[2023-05-20] MEDS ORDERED: HYDROcodone/APAP 5-325MG 1 EACH TAB PO STA (01:26)
--- NOTE | 2023-05-20 03:21 | CT ---
EXAM: CT Abdomen and Pelvis Without Intravenous Contrast CLINICAL HISTORY: L abdominal pain TECHNIQUE: Axial computed tomography images of the abdomen and pelvis without intravenous contrast. CTDI is 6.7 mGy and DLP is 327 mGy-cm. This CT exam was performed using one or more of the following dose reduction techniques: automated exposure control, adjustment of the mA and/or kV according to patient size, and/or use of iterative reconstruction technique. COMPARISON: November 2018. Previous gastrojejunostomy. The stomach lumen is distended with food material. No evidence of bowel obstruction. FINDINGS: Lung bases: Unremarkable. No mass. No consolidation. ABDOMEN: Liver: Unremarkable. Gallbladder and bile ducts: Unremarkable. No calcified stones. No ductal dilation. Pancreas: Unremarkable. No ductal dilation. Spleen: Unremarkable. No splenomegaly. Adrenals: Unremarkable. No mass. Kidneys and ureters: Unremarkable. No obstructing stones. No hydronephrosis. Stomach and bowel: Unremarkable. No obstruction. No mucosal thickening. PELVIS: Appendix: No findings to suggest acute appendicitis. Bladder: Unremarkable. No stones. Reproductive: Unremarkable as visualized. ABDOMEN and PELVIS: Intraperitoneal space: Small amount of free fluid in the pelvis. No free air. Bones/joints: No acute fracture. No dislocation. Soft tissues: Unremarkable. Vasculature: Unremarkable. No abdominal aortic aneurysm. Lymph nodes: Unremarkable. No enlarged lymph nodes. IMPRESSION: Previous gastrojejunostomy. The stomach lumen is distended with food material. Correlate with timing of last meal to evaluate for possible outlet obstruction. No other significant abnormalities. A small amount of free fluid in the pelvis.
== END 2023-05-20 02:57 | disposition left against medical advice (07) ==
LOC: EC 20:37
DX: R10.12 Left upper quadrant pain (principal); R10.11 Right upper quadrant pain; I10 Essential (primary) hypertension; K21.9 Gastro-esophageal reflux disease without esophagitis; F41.9 Anxiety disorder, unspecified; F32.A Depression, unspecified; F12.90 Cannabis use, unspecified, uncomplicated; Z79.899 Other long term (current) drug therapy; Z87.891 Personal history of nicotine dependence; Z88.8 Allergy status to other drugs, medicaments and biological substances; Z53.29 Procedure and treatment not carried out because of patient's decision for other reasons
CPT/HCPCS: 36415; 74176; 80053; 81001; 82150; 83690; 84484; 85025; 93005; 96374; 99284

== ENCOUNTER 2024-07-27 18:18 | Emergency (ER) | payer OTHER ==
[2024-07-27 18:23] VITALS: RESP 18
--- NOTE | 2024-07-27 18:34 | ED ---
Lower Extremity Injury HPI - General Chief Complaint: Extremity Injury, Lower Stated Complaint: L leg pain Time Seen by Provider: 07/27/24 18:32 Source: patient, RN notes reviewed Mode of arrival: ambulatory Limitations: no limitations - History of Present Illness Initial Comments: 59-year-old female presents emergency department chief complaint of left lower extremity pain. Patient states that she has been experiencing this intermittent pain over the past few weeks has been evaluated multiple times in different ERs with no acute diagnosis. Patient dates that she has had x-rays and CTs completed. Patient states that the pain will start in her groin and radiate into her lower leg. Denies injuries or acute trauma. Patient admits to calf pain and edema. Denies shortness of breath, chest pain, heart palpitations, dizziness, headedness, recent prolonged travel. - Related Data Home Medications Medication Instructions Recorded Confirmed Escitalopram [Lexapro] 20 mg PO DAILY 11/24/18 07/28/22 traZODone HCL 150 mg PO HS 11/24/18 07/28/22 Pantoprazole Sodium [Protonix] 40 mg PO BID 12/25/18 07/28/22 Ammonium Lactate Cream [Lac-Hydrin 1 applic TOPICAL BID PRN 05/15/22 07/28/22 12% Cream] Fluticasone Nasal [place] [Flonase 1 spray EA NOSTRIL DAILY PRN 05/15/22 07/28/22 Nasal [place]] Previous Rx's Medication Instructions Recorded Cyclobenzaprine [Flexeril] 10 mg PO TID PRN #12 tablet 07/13/22 Allergies Allergy/AdvReac Type Severity Reaction Status Date / Time prochlorperazine AdvReac restless Verified 07/27/24 18:23 [From Compazine] leg prochlorperazine edisylate AdvReac restless Verified 07/27/24 18:23 [From Compazine] leg prochlorperazine maleate AdvReac restless Verified 07/27/24 18:23 [From Compazine] leg Review of Systems ROS Statement: Those systems with pertinent positive or pertinent negative responses have been documented in the HPI. ROS Other: All systems not noted in ROS Statement are negative. Past Medical History Past Medical History: GERD/Reflux, Hypertension Additional Past Medical History / Comment(s): Past hypotension/bradycardia thou ght to be medication related, bowel obstruction with surgery, PUD with surgery, gastroparesis, chronic low back pain, DJD, heart murmur as a child. History of Any Multi-Drug Resistant Organisms: None Reported Past Surgical History: Bowel Resection Additional Past Surgical History / Comment(s): ani en y gastric bypass,partial gastectomy, colonoscopy. Past Anesthesia/Blood Transfusion Reactions: No Reported Reaction Past Psychological History: Anxiety, Depression Smoking Status: Former smoker Past Alcohol Use History: Occasional Past Drug Use History: Marijuana - Past Family History Mother Family Medical History: GERD/Reflux, Hypertension Additional Family Medical History / Comment(s): Pt. reports her mother is overall healthy and is 81 years old. Father History Unknown: Yes Additional Family Medical History / Comment(s): father was shot and killed when pt was 10 years old. family Additional Family Medical History / Comment(s): denies any history of cancer or CAD in the family General Exam Limitations: no limitations General appearance: alert, in no apparent distress Neck exam: Present: normal inspection. Absent: tenderness, meningismus, lymphadenopathy Respiratory exam: Present: normal lung sounds bilaterally. Absent: respiratory distress, wheezes, rales, rhonchi, stridor Cardiovascular Exam: Present: regular rate, normal rhythm, normal heart sounds. Absent: systolic murmur, diastolic murmur, rubs, gallop, clicks GI/Abdominal exam: Present: soft, normal bowel sounds. Absent: distended, tenderness, guarding, rebound, rigid Extremities exam: Present: normal inspection, full ROM, tenderness (Left lower extremity), normal capillary refill Back exam: Present: normal inspection Skin exam: Present: warm, dry, intact, normal color. Absent: rash Course Vital Signs 07/27/24 07/27/24 18:21 20:06 Temperature 98.1 F 98.0 F Pulse Rate 87 82 Respiratory 18 18 Rate Blood Pressure 196/103 172/90 O2 Sat by Pulse 99 99 Oximetry Medical Decision Making - Medical Decision Making Was pt. sent in by a medical professional or institution (, PA, NON DESTRUCTIVE TESTING INSPECTOR, urgent care, hospital, or snf...) When possible be specific @ -No Did you speak to anyone other than the patient for history (EMS, parent, family, police, friend...)? What history was obtained from this source @ -No Did you review nursing and triage notes (agree or disagree)? Why? @ -I reviewed and agree with nursing and triage notes Were old charts reviewed (outside hosp., previous admission, EMS record, old EKG, old radiological studies, urgent care reports/EKG's, snf records)? Report findings @ -No old charts were reviewed Differential Diagnosis (chest pain, altered mental status, abdominal pain women, abdominal pain men, vaginal bleeding, weakness, fever, dyspnea, syncope, headache, dizziness, GI bleed, back pain, seizure, CVA, palpatations, mental health, musculoskeletal)? @ -Differential Musculoskeletal Muscular strain, contusion, ligament sprain, fracture, arthritis, septic arthritis, bursitis, cellulitis, muscle spasm, nerve compression, DVT, arterial occlusion, herpes zoster, electrolyte abnormality, tumor.... This is not meant to be in all inclusive list EKG interpreted by me (3pts min.). @ -As above X-rays interpreted by me (1pt min.). @ -None CT interpreted by me (1pt min.). @ -None done U/S interpreted by me (1pt. min.). @ -duplex ultrasound of the left lower extremity negative for DVT What testing was considered but not performed or refused? (CT, X-rays, U/S, labs)? Why? @ -X-ray imaging was considered but deferred at this time. Patient states that she has had multiple x-rays of the left lower extremity over the past few weeks with no acute process. Additionally, patient denies any recent trauma or injury that would be concerning for osseous abnormality therefore x-rays deferred What meds were considered but not given or refused? Why? @ -None Did you discuss the management of the patient with other professionals (professionals i.e. , PA, NON DESTRUCTIVE TESTING INSPECTOR, lab, RT, psych nurse, social sciences professor, tire center supervisor, teacher, boating safety officer, social work case manager)? Give summary @ -No Was smoking cessation discussed for >3mins.? @ -No Was critical care preformed (if so, how long)? @ -No Were there social determinants of health that impacted care today? How? (Homel essness, low income, unemployed, alcoholism, drug addiction, transportation, low edu. Level, literacy, decrease access to med. care, senior living, rehab)? @ -No Was there de-escalation of care discussed even if they declined (Discuss DNR or withdrawal of care, Hospice)? DNR status @ -No What co-morbidities impacted this encounter? (DM, HTN, Smoking, COPD, CAD, Cancer, CVA, ARF, Chemo, Hep., AIDS, mental health diagnosis, sleep apnea, morbid obesity)? @ -None Was patient admitted / discharged? Hospital course, mention meds given and route, prescriptions, significant lab abnormalities, going to OR and other pertinent info. @ -Discharged. 59-year-old female with left lower extremity pain. On examination patient noted to have left lower extremity pain from the hip to the toes. There are no acute neurological deficits or neurovascular deficits. Pedal pulse 2+. Patient is able to bear weight no signs of distress. Duplex ultrasound ordered to rule out blood clot that is negative. Patient provided with Toradol and instructed to follow-up outpatient with primary care provider for further evaluation of acute on chronic left lower extremity leg pain. All questions answered at bedside and strict return parameters discussed with the patient she is verbalized understanding. Discussed with Dr. Naylor Undiagnosed new problem with uncertain prognosis? @ -No Drug Therapy requiring intensive monitoring for toxicity (Heparin, Nitro, Insulin, Cardizem)? @ -No Were any procedures done? @ -No Diagnosis/symptom? @ -left leg pain Acute, or Chronic, or Acute on Chronic? @ -acute Uncomplicated (without systemic symptoms) or Complicated (systemic symptoms)? @ - uncomplicated Side effects of treatment? @ -No Exacerbation, Progression, or Severe Exacerbation? @ -No Poses a threat to life or bodily function? How? (Chest pain, [place], [place], pneumonia, PE, COPD, DKA, ARF, appy, cholecystitis, CVA, Diverticulitis, Homicidal, Suicidal, threat to staff... and all critical care pts) @ -No Disposition Clinical Impression: Leg pain Disposition: HOME SELF-CARE Condition: Good Instructions (If sedation given, give patient instructions): Leg Pain (ED) Additional Instructions: Return to the emergency department for any new or worsening symptoms. Is patient prescribed a controlled substance at d/c from ED?: No Referrals: Александр Uribe DO [Primary Care Provider] - 1-2 days Time of Disposition: 19:53
--- NOTE | 2024-07-27 19:30 | US ---
EXAMINATION TYPE: US venous doppler duplex LE LT DATE OF EXAM: 07/27/2024 7:27 PM COMPARISON: NONE CLINICAL INDICATION: Female, 59 years old with history of pain in calf, swelling; Patient states pain in leg. Patient in a lot of pain in groin. No hx of dvt. Patient not on thinners SIDE PERFORMED: Left TECHNIQUE: The lower extremity deep venous system is examined utilizing real time linear array sonog yosef with graded compression, doppler sonography and color-flow sonography. VESSELS IMAGED: Common Femoral Vein Deep Femoral Vein Greater Saphenous Vein * Femoral Vein Popliteal Vein Small Saphenous Vein * Proximal Calf Veins (* superficial vessels) Left Leg: Negative for DVT IMPRESSION: 1. Left lower extremity ultrasound negative for deep venous thrombosis.
[2024-07-27] MEDS: KETOROLAC 15 MG/ML 1 ML VIAL IM STA (19:59)
[2024-07-27] MEDS: CYCLOBENZAPRINE 10 MG TAB PO STA (19:59)
[2024-07-27 20:12] VITALS: BP 172/90; PULSE 82; TEMP 98
== END 2024-07-27 20:12 | disposition home or self-care (01) ==
LOC: EC 18:18
DX: M79.605 Pain in left leg
CPT/HCPCS: 96372; 99283